=== PATIENT | female | born 2000 | race Caucasian/White ===

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

== ENCOUNTER 2020-06-20 20:16 | Emergency (ER) | payer OTHER, SELFPAY ==
[2020-06-20 20:35] VITALS: BP 118/68; PULSE 95; RESP 20; TEMP 37.2; O2SAT 98; BMI 28.3
[2020-06-20 20:40] LABS: Apearance,Urine Clear (Clear); Bilirubin,Urine Negative (Negative); Blood, Urine Negative (Negative); Color,Urine Yellow (Yellow); Glucose,Urine (UA) Negative (Negative); Ketones,Urine Negative (Negative); PH,Urine 7.5 (5.0-8.5); Protein,Urine Negative (Negative); UTC Leukocyte Esterase,Urine Negative (Negative); UTC Nitrate,Urine Negative (Negative); UTC Pregnancy Test, Urine Positive (Negative); Urobilinogen,Urine 1 EU/dl (0.2)
--- NOTE | 2020-06-20 20:40 | HMH.EDUTC ---
[facility] Disposition Clinical Impression: Dysuria, Positive urine test Disposition: Home, Self-Care Condition on Discharge: Good Instructions: DI for Dysuria -- Adult, Diet Additional Instructions: Drink plenty of fluids. Take tylenol or ibuprofen for pain or fever. Take the medications as directed. Follow up with your regular doctor. GO TO THE ER FOR ANY WORSENING SYMPTOMS Prescriptions: cephALEXin [Keflex 500mg Cap] 500 mg PO Q6H 7 Days #28 cap Transmission Status: Pending to [facility] Referrals: Merlyn Gimenez MD [Primary Care Provider] - Time of Disposition: 20:45 Medical Decision Making - Medical Records Medical records reviewed: No: I reviewed the patient's medical records. - Maged Inquiry Pt receiving controlled substance: No Vital Signs: 06/20/20 20:35 Temperature 99.0 F Temperature Source Oral Pulse Rate [Right Brachial] 95 H Respiratory Rate 20 Blood Pressure [Right Arm] 118/68 Blood Pressure Mean [Right Arm] 84 Blood Pressure Source [Right Arm] Automatic Cuff Blood Pressure Position [Right Arm] Sitting 02 Sat by Pulse Oximetry 98 Oxygen Delivery Method Room Air - Lab Data Lab results reviewed: Yes: I reviewed the patient's lab results. Lab Results 06/20/20 20:39: Urine Color Yellow, Urine Appearance Clear, Urine pH 7.5, Ur Specific [place] 1.020, Urine Protein Negative, Urine Glucose (UA) Negative, Urine Ketones Negative, Urine Blood Negative, Urine Nitrate Negative, Urine Bilirubin Negative, Urine Urobilinogen 1, Ur Leukocyte Esterase Negative, Tst Clinic Positive Orders (Tests/Meds): ORDERS Category Date Time Status Urine Culture Stat Micro 06/20/20 20:15 Ordered [facility] HPI - General Stated complaint: Preg, has a UTI Time Seen by Provider: 06/20/20 20:41 Mode of Arrival: Ambulatory Source of Information: Patient Limitations: No Limitations Description of Symptoms (Recalled from Triage Doc. by RN): PATIENT C/O FREQUENCY AND BURNING WITH URINATION X 1 WEEK. SHE STATES SHE TOOK AN AT HOME TEST 2 DAYS AGO AND IT WAS POSITIVE HEENT Symptoms (Recalled from RN notes): No Resp Symptoms (Recalled from RN notes): No Skin Symptoms (Recalled from RN notes): No MS Symptoms (Recalled from RN notes): No Functional Status (Recalled from RN notes): WNL - History of Present Illness Provider Complaint: She c/o 2 days of dysuria. She thinks that she has a uti. She also states that she thinks that she is . Her period is approx 1 week late. She has had 2 positive urine test at home. She denies any vaginal discharge, vaginal bleeding, abdominal pain or low back pain. - Related Data Previous Rx's Medication Instructions Recorded cephALEXin [Keflex 500mg Cap] 500 mg PO Q6H 7 Days #28 cap 06/20/20 Allergies Allergy/AdvReac Type Severity Reaction Status Date / Time amoxicillin Allergy Mild Verified 12/13/18 15:26 Penicillins Allergy Mild hives Verified 12/13/18 15:26 - Worker's Comp Is this a Worker's Comp case?: No [facility] History - Hepatitis A Screen Drug use history?: No High risk sexual behaviors?: No History of sexually transmitted infection?: No Currently employed?: No Childcare worker?: No Do you have indoor plumbing?: Yes Do you have electricity?: Yes Attestation statement:: This patient has been screened for Hepatitis A risk factors. I have reviewed the patient's past medical history: Yes 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: Denies:: Anxiety, Cancer, Depression, Diabetes Mellitus Type 1, Diabetes Mellitus Type 2, Migraine, MRSA, Seizures Other Surgeries: No: Amputation: No Fractures: No - Social History Smoking Status: Current every day smoker Tobacco Type: cigarettes # Packs/Day (cigarettes): 1 Alcohol Intake: never Substance Use Type: denies use Occupational Status: other - Psychiatric History Pschychiatric History:: Denies:: Anxiety, Depression Family Hx:
[2020-06-20 20:47] VITALS: BP 118/68; PULSE 95; RESP 20; TEMP 37.2; O2SAT 98
== END 2020-06-20 20:50 | disposition home or self-care (01) ==
PROVIDERS: Emergency Provider Nurse Practitioner Family; PCP Family Medicine
DX: R30.0 Dysuria (principal); Z32.01 Encounter for pregnancy test, result positive; F17.210 Nicotine dependence, cigarettes, uncomplicated
CPT/HCPCS: 81003; 81025; 87086; 99201

== ENCOUNTER → 2020-07-08 13:55 | Outpatient (CLI) | payer OTHER, SELFPAY | PROVIDERS: Visit Provider Nurse Practitioner Obstetrics & Gynecology | DX: Z32.00 Encounter for pregnancy test, result unknown (principal) | CPT/HCPCS: 36415; 84702 ==

== ENCOUNTER → 2020-07-09 18:04 | Outpatient (CLI) | payer OTHER, SELFPAY ==
[2020-07-15 10:00] LABS: Neisseria gonorrhoeae, NAA Negative (Negative)
== END ==
PROVIDERS: Visit Provider Nurse Practitioner Obstetrics & Gynecology
DX: Z34.90 Encounter for supervision of normal pregnancy, unspecified, unspecified trimester (principal)
CPT/HCPCS: 87491; 87591

== ENCOUNTER → 2020-07-16 13:52 | Outpatient (CLI) | payer OTHER, SELFPAY ==
--- NOTE | 2020-07-16 13:52 | US_ITS ---
PROCEDURE: US OB TRANSVAGINAL CLINICAL INDICATION: US OB for dates COMPARISON: US OBFEMAT US OB /maternal detail from 07/03/2018 FINDINGS: An intrauterine gestational sac is present with a pole with a crown-rump length of 1.69cm correlating to gestational age of 8weeks 1day. heart tones are present with an FHR of 164bpm. Yolk sac is noted. IMPRESSION: Live IUP at 8 weeks 1 day. Estimated due date by Ultrasound is 02/24/2021 Dictated by: Johnathan Arias MD 07/16/2020 16:53 Johnathan Arias MD in [facility] 07/16/2020 16:53
== END ==
PROVIDERS: PCP Family Medicine; Visit Provider Nurse Practitioner Obstetrics & Gynecology
DX: O26.841 Uterine size-date discrepancy, first trimester (principal)
CPT/HCPCS: 76817

== ENCOUNTER 2020-12-26 21:03 | Emergency (ER) | payer OTHER, SELFPAY ==
[2020-12-26 21:06] VITALS: BP 118/63; PULSE 104; RESP 20; TEMP 37.1; O2SAT 99; BMI 31.7
--- NOTE | 2020-12-26 21:30 | HMH.EDSKAF ---
ED Disposition Clinical Impression: Acute eczema Qualifiers: Weeks of gestation: 32 weeks Qualified Code(s): Z3A.32 - 32 weeks gestation of Disposition: Home, Self-Care Condition on Discharge: Good Instructions: DI for Atopic Dermatitis-Adult Additional Instructions: call pcp and ob in am Referrals: Merlyn Gimenez MD [Primary Care Provider] - - Critical Care Critical Care Time: No Attestation: On 12/26/20, the high probability of a clinically significant, sudden or life threatening deterioration of the following system(s) required my full and direct attention, intervention and personal management. The time I documented below is in addition to time spent performing reported procedures but includes the following listed in this critical care notation. Medical Decision Making - Medical Records Medical records reviewed: Yes: I reviewed the patient's medical records. - Maged Inquiry Pt receiving controlled substance: No Vital Signs: 12/26/20 21:06 Temperature 98.7 F Temperature Source Oral Pulse Rate [Left Radial] 104 H Respiratory Rate 20 Blood Pressure [Right Arm] 118/63 Blood Pressure Mean [Right Arm] 81 Blood Pressure Source [Right Arm] Automatic Cuff Blood Pressure Position [Right Arm] Supine 02 Sat by Pulse Oximetry 99 Oxygen Delivery Method Room Air - Lab Data Lab results reviewed: Yes: I reviewed the patient's lab results. Medical Decision Narrative: possible preg induced eczema and not responsive to steroids /antihistamines - will ask pt to call pcp and ob in am Skin/Abscess/FB HPI - General Chief complaint: Skin/Abscess/Foreign Body Stated complaint: rash 32 wk Preg Time Seen by Provider: 12/26/20 21:30 Mode of Arrival: Ambulatory Source of Information: Patient, Medical Record Limitations: No Limitations Description of Symptoms (Recalled from ER Triage Doc. by RN): Pt reports being seen in [facility] 5 days ago for a rash to bilateral arms and legs and neck. She was given PO prednisone and benadryl. She states she came here today d/t rash not getting any better. - History of Present Illness HPI narrative: rash to bilat forearm over the last week - seen at [facility] and placed on steroids - no relief -no other lesions complaint: rash Onset (ago): day(s) Location: [facility] [place] Severity: moderate Associated symptoms: denies other symptoms Treatments prior to arrival: Benadryl, corticosteroid - Related Data Previous Rx's Medication Instructions Recorded prenat.vits,mikhail,vuz-nuor-xnsso 1 tab PO DAILY #30 tab 07/09/20 Allergies Allergy/AdvReac Type Severity Reaction Status Date / Time amoxicillin Allergy Mild Verified 07/09/20 10:34 Penicillins Allergy Mild hives Verified 07/09/20 10:34 [facility] History - Hepatitis A Screen Drug use history?: No High risk sexual behaviors?: No History of sexually transmitted infection?: No Currently employed?: No Childcare worker?: No Do you have indoor plumbing?: Yes Do you have electricity?: Yes Attestation statement:: This patient has been screened for Hepatitis A risk factors. I have reviewed the patient's past medical history: Yes 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: Denies:: Anxiety, Cancer, Depression, Diabetes Mellitus Type 1, Diabetes Mellitus Type 2, Migraine, MRSA, Seizures Other Surgeries: No: Amputation: No Fractures: No - Social History Smoking Status: Current every day smoker Tobacco Type: cigarettes # Packs/Day (cigarettes): 1 Alcohol Intake: never Alcohol Intake Frequency:: other Substance Use Type: denies use Occupational Status: other - Psychiatric History Pschychiatric History:: Denies:: Anxiety, Depression Family Hx:: No significant family history ROS Obtained: Yes All systems reviewed & no additional complaints - Constitutional Constitutional: Denies fever(s) - Eyes Eyes: Denies change in vision - ENT Ears, Nose, Mouth, and Throat: Denies sore throat - Cardiovas
[2020-12-26 21:56] VITALS: BP 111/65; PULSE 104; RESP 18; TEMP 36.9; O2SAT 98
== END 2020-12-26 21:57 | disposition home or self-care (01) ==
PROVIDERS: Emergency Provider Emergency Medicine; PCP Family Medicine
DX: L30.9 Dermatitis, unspecified (principal); Z3A.32 32 weeks gestation of pregnancy; Z88.0 Allergy status to penicillin; F17.210 Nicotine dependence, cigarettes, uncomplicated
CPT/HCPCS: 99281

== ENCOUNTER 2021-01-07 09:54 | Outpatient (CLI) | payer OTHER, SELFPAY ==
[2021-01-07 10:20] VITALS: BMI 40.3
[2021-01-07 10:43] VITALS: BMI 45.4
[2021-01-07 10:48] LABS: Microscopic, Urine URINE MICROSCOPIC (MICROSCOPIC)
[2021-01-07 10:58] LABS: Appearance,Urine CLOUDY (Clear); Bilirubin,Urine Negative (Negative); Blood, Urine Negative (Negative); Color,Urine YELLOW (Yellow); Glucose,Urine (UA) 1+ (Negative); Ketones,Urine Negative (Negative); Leukocyte Esterase,Urine Negative (Negative); Nitrate,Urine Negative (Negative); Protein,Urine Negative (Negative); Specific Gravity, Urine >= 1.030 (1.005-1.030); Urobilinogen,Urine 0.2 EU/dl (0.2)
[2021-01-07 11:11] LABS: Amphetamine/Metha Screen,Urine Negative ng/ml (<1000); Barbiturates Screen,Urine Negative ng/ml (<200)
[2021-01-07 11:12] LABS: Benzodiazepines Screen,Urine Negative ng/ml (<200)
[2021-01-07 11:13] LABS: Fetal Membrane Rupture (Rapid) Negative (Negative)
[2021-01-07 11:13] LABS: Cannabinoid Screen,Urine Negative ng/ml (<50); Cocaine Screen,Urine Negative ng/ml (<300)
[2021-01-07 11:14] LABS: Methadone Screen,Urine Negative ng/ml (<300)
[2021-01-07 11:15] LABS: Opiate Screen,Urine Negative ng/ml (<300); Phencyclidine Screen,Urine Negative ng/ml (<25)
[2021-01-07 11:18] LABS: RBC,Urine Occasional #/hpf (0-3); WBC,Urine Occasional #/hpf (0-3)
[2021-01-07 11:19] LABS: Bacteria,Urine 1+ /lpf
== END 2021-01-07 14:26 | disposition home or self-care (01) ==
LOC: OBOUT 09:55 → OB 09:56
PROVIDERS: PCP Family Medicine; Visit Provider Nurse Practitioner Obstetrics & Gynecology
DX: O26.893 Other specified pregnancy related conditions, third trimester (principal); Z3A.33 33 weeks gestation of pregnancy; M54.5 Low back pain; R10.2 Pelvic and perineal pain
CPT/HCPCS: 59025; 80305; 81001; 84112; 96365; G0463

== ENCOUNTER 2021-01-26 23:42 | Observation (INO) | payer OTHER, SELFPAY ==
[2021-01-26 21:59] VITALS: BMI 38.1
[2021-01-26 22:03] VITALS: BP 111/57; PULSE 152; RESP 20; TEMP 37.8; O2SAT 99; BMI 38.1
[2021-01-26 22:12] VITALS: BP 111/87; PULSE 152; RESP 20; TEMP 37.8; O2SAT 99
[2021-01-26 22:12] LABS: Microscopic, Urine URINE MICROSCOPIC (MICROSCOPIC)
[2021-01-26 22:14] LABS: Appearance,Urine SL CLOUDY (Clear); Bilirubin,Urine Negative (Negative); Blood, Urine Negative (Negative); Color,Urine YELLOW (Yellow); Glucose,Urine (UA) Negative (Negative); Ketones,Urine Negative (Negative); Leukocyte Esterase,Urine Negative (Negative); Nitrate,Urine Negative (Negative); PH,Urine 7.5 (5.0-8.5); Protein,Urine Negative (Negative); Specific Gravity, Urine 1.015 (1.005-1.030); Urobilinogen,Urine 0.2 EU/dl (0.2)
[2021-01-26 22:23] LABS: Bacteria,Urine 1+ /lpf; WBC,Urine Occasional #/hpf (0-3)
[2021-01-26 22:26] LABS: Amphetamine/Metha Screen,Urine Negative ng/ml (<1000); Barbiturates Screen,Urine Negative ng/ml (<200)
[2021-01-26 22:27] LABS: Benzodiazepines Screen,Urine Negative ng/ml (<200)
[2021-01-26 22:28] LABS: Cannabinoid Screen,Urine Negative ng/ml (<50); Cocaine Screen,Urine Negative ng/ml (<300)
[2021-01-26 22:29] LABS: Methadone Screen,Urine Negative ng/ml (<300)
[2021-01-26 22:30] LABS: Opiate Screen,Urine Negative ng/ml (<300); Phencyclidine Screen,Urine Negative ng/ml (<25)
[2021-01-26 22:51] LABS: Adenovirus,PCR Not Detected (NotDetected); Bordetella Pertussis Not Detected (NotDetected); Chlamydophila Pneumoniae, PCR Not Detected (NotDetected); Coronavirus 19, PCR Not Detected (NotDetected); Coronavirus 229E Not Detected (NotDetected); Coronavirus OC43 Not Detected (NotDetected); Coronovirus HKU1,PCR Not Detected (NotDetected); Human Metapneumovirus Not Detected (NotDetected); Influenza A, PCR Not Detected (NotDetected); Influenza AH1, 2009 Not Detected (NotDetected); Influenza AH1, PCR Not Detected (NotDetected); Influenza AH3,PCR Not Detected (NotDetected); Influenza B, PCR Not Detected (NotDetected); Mycoplasma Pneumoniae, PCR Not Detected (NotDetected); Parainfluenza 1, PCR Not Detected (NotDetected); Parainfluenza 2, PCR Not Detected (NotDetected); Parainfluenza 3, PCR Not Detected (NotDetected); Parainfluenza 4, PCR Not Detected (NotDetected); Respiratory Syncytial Virus Not Detected (NotDetected); Rhinovirus/Enterovirus Not Detected (NotDetected)
[2021-01-26 22:55] LABS: Basophils % 0.2 % (0.1-2.0); Eosinophils % 0.4 % (0.1-12.0); Hematocrit 33.8 % (37.0-47.0); Hemoglobin 11.8 g/dL (12.2-16.2); Lymphocytes # 0.7 K/mm3 (0.7-4.5); Lymphocytes % 6.7 % (10-50); Mean Corpuscular HGB Conc 34.8 g/dL (31.8-35.4); Mean Corpuscular Hemoglobin 31.2 pg (27.0-31.2); Mean Corpuscular Volume 89.7 fl (81-99); Mean Platelet Volume 8.5 fl (7.4-10.4); Monocytes # 0.6 K/mm3 (0.1-1.0); Monocytes % 5.7 % (1.7-9.3); Neutrophils # 8.9 K/mm3 (1.8-7.8); Neutrophils % 87.1 % (37.0-80.0); Platelet Count 231 K/mm3 (142-424); Red Blood Count 3.77 M/mm3 (4.20-5.40); Red Cell Distribution Width 12.8 % (11.5-17.5); White Blood Count 10.2 K/mm3 (4.8-10.8)
[2021-01-26 23:00] LABS: Chloride 105 mmol/L (98-107); MANUAL DIFFERENTIAL MANUAL DIFFERENTIAL (MANUAL DIFF); Sodium 134 mmol/L (136-145)
[2021-01-26 23:01] LABS: Potassium 3.9 mmoL/L (3.5-5.1)
[2021-01-26 23:03] LABS: Alanine Aminotransferase 13 U/L (12-78); Alkaline Phosphatase 141 U/L (38-126); Anion Gap 11.9 mEq/L (5-15); Aspartate Amino Transferase 27 U/L (14-36); Bilirubin,Total 0.6 mg/dl (0.2-1.3); Blood Urea Nitrogen 3 mg/dl (7-17); Carbon Dioxide 21 mmol/L (22.0-30.0); Creatinine Clearance Estimated 292 mL/min (50-200); Estimated Glomerular Filt Rate 156 ml/min (>60); GFR (African American) 188 ML/MIN (>60)
[2021-01-26 23:04] LABS: Albumin Level 3.7 g/dl (3.5-5.0); Albumin/Globulin Ratio 1.5 (1.1-1.8); Calcium 9.2 mg/dl (8.4-10.2); Globulin 2.4 g/dL (1.3-3.2); Glucose 101 mg/dl (74-100); Total Protein,Serum 6.1 g/dl (6.3-8.2)
[2021-01-26 23:08] VITALS: BP 114/61; PULSE 139; RESP 20; TEMP 37.3; O2SAT 99
[2021-01-26 23:11] LABS: Lymphocytes % 10 % (10-50); Monocytes % 6 % (2-9); Neutrophils % 84 % (42-76); Platelet Estimate Normal; RBC Morphology Normal; Total Cells Counted 100
[2021-01-26 23:15] LABS: Strep Scrn Group A (Rapid) Negative (Negative)
[2021-01-26 23:50] VITALS: BP 119/57; PULSE 131; RESP 18; TEMP 37.8; O2SAT 98
[2021-01-27 00:35] LABS: Coronavirus NL63 Detected (NotDetected)
[2021-01-27 04:46] VITALS: BP 110/63; PULSE 110; RESP 18; TEMP 37.3; O2SAT 99
--- NOTE | 2021-01-27 08:21 | HMH.HPDC ---
General - General Admission date:: 01/26/21 Discharge date: 01/27/21 *Admission Date: 01/26/21 *Chief complaint: Body aches, low-grade fever feeling unwell *History of present illness: She is a 20-year-old 1 para 0 at 36 weeks gestational age. She was feeling unwell. She had decreased movement. When she came into labor and delivery she had tachycardia and a low-grade temperature of 100. She had been exposed to somebody who had Covid. Since she was feeling unwell we elected to admit her for observation. We tested her for Covid as well. [facility] History I have reviewed the patient's past medical history: Yes 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: Denies:: Anxiety, Cancer, Depression, Diabetes Mellitus Type 1, Diabetes Mellitus Type 2, Migraine, MRSA, Seizures *Have you ever received a pneumonia vaccine?: No *Have you received a flu vaccine this season?: No Other Surgeries: No: Amputation: No Fractures: No - *Social History Last grade of school completed: 9th or 10th Smoking Status: Current every day smoker Tobacco Type: e-cigarettes # Packs/Day (cigarettes): 1 Alcohol Intake: never Alcohol Intake Frequency:: other Substance Use Type: denies use *Occupational Status:: unemployed Housing: apartment Household Members: children, none *Travel in the last 8 weeks: None - Psychiatric History Pschychiatric History:: Denies:: Anxiety, Depression Family Hx:: Diabetes, Hypertension, Stroke, Substance abuse Para: 1 Review of Systems - Review of Systems Review of systems:: pertinent systems reviewed and negative unless documented below Exam Vital signs and Labs for Last 24 Hours: Temp Pulse Resp BP Pulse Ox 99.1 F 110 H 18 110/63 99 01/27/21 04:46 01/27/21 04:46 01/27/21 04:46 01/27/21 04:46 01/27/21 04:46 Laboratory Results - last 24 hr 01/26/21 22:00: Urine Color Yellow, Urine Appearance Sl cloudy, Urine pH 7.5, Ur Specific [place] 1.015, Urine Protein Negative, Urine Glucose (UA) Negative, Urine Ketones Negative, Urine Blood Negative, Urine Nitrate Negative, Urine Bilirubin Negative, Urine Urobilinogen 0.2, Ur Leukocyte Esterase Negative, Urine WBC Occasional, Ur Squamous Epith Cells 3-5, Urine Bacteria 1+ 01/26/21 22:00: Urine Opiates Screen Negative, Urine Methadone Screen Negative, Ur Barbituates Screen Negative, Ur Phencyclidine Scrn Negative, Ur Amphetamines Screen Negative, U Benzodiazepines Scrn Negative, Urine Cocaine Screen Negative, U Marijuana (THC) Screen Negative 01/26/21 22:22: WBC 10.2, RBC 3.77 L, Hgb 11.8 L, Hct 33.8 L, MCV 89.7, MCH 31.2, MCHC 34.8, RDW 12.8, Plt Count 231, MPV 8.5, Neut % (Auto) 87.1 H, Lymph % (Auto) 6.7 L, [place] % (Auto) 5.7, Eos % (Auto) 0.4, Baso % (Auto) 0.2, Neut # (Auto) 8.9 H, Lymph # (Auto) 0.7, [place] # (Auto) 0.6, Eos # (Auto) 0.0, Baso # (Auto) 0.0, Total Counted 100, Neutrophils % (Manual) 84 H, Lymphocytes % (Manual) 10, Monocytes % (Manual) 6, Platelet Estimate Normal, RBC Morphology Normal 01/26/21 22:22: Sodium 134 L, Potassium 3.9, Chloride 105, Carbon Dioxide 21 L, Anion Gap 11.9, BUN 3 L, Creatinine 0.50 L, Estimated Creat Clear 292, Estimated GFR 156, Est GFR ( Amer) 188, Glucose 101 H, Calcium 9.2, Total Bilirubin 0.6, AST 27, ALT 13, Alkaline Phosphatase 141 H, Total Protein 6.1 L, Albumin 3.7, Globulin 2.4, Albumin/Globulin Ratio 1.5 01/26/21 22:40: Chlamy pneumoniae PCR Not detected, Adenovirus (PCR) Not detected, B. pertussis DNA (PCR) Not detected, Coronavirus OC43 (PCR) Not detected, Coronavirus HKU1 (PCR) Not detected, Coronavirus 229E (PCR) Not detected, SARS-CoV-2 (PCR) Not detected, Coronavirus NL63 (PCR) Detected A, Human Metapneumovir PCR Not detected, Influenza A (H1) PCR Not detected, Influ A (H1N1/09) PCR Not detected, Influenza A (H3) PCR Not detected, Influenza Type A (PCR) Not detected, Influenza Type B (PCR) Not detected, M. pneumoniae (PCR) Not detected, Parainfluenza 1 (PCR) Not detected, Parainfluenza 2 (PCR) Not detected, Parainfluenz
== END 2021-01-27 09:30 | disposition home or self-care (01) ==
LOC: OBOUT 23:45 → OB 23:45
PROVIDERS: Admitting Provider Nurse Practitioner Obstetrics & Gynecology; PCP Nurse Practitioner Obstetrics & Gynecology; Visit Provider Nurse Practitioner Obstetrics & Gynecology
DX: O36.8130 Decreased fetal movements, third trimester, not applicable or unspecified (principal); Z3A.36 36 weeks gestation of pregnancy; O98.513 Other viral diseases complicating pregnancy, third trimester; B34.2 Coronavirus infection, unspecified
CPT/HCPCS: 59025; 80053; 80305; 81001; 85007; 85025; 87430; 87581; 87633; 87798; 94761; 96365; G0283; G0378

== ENCOUNTER → 2021-01-29 15:11 | Outpatient (CLI) | payer OTHER, SELFPAY | PROVIDERS: Visit Provider Nurse Practitioner Obstetrics & Gynecology | DX: Z34.90 Encounter for supervision of normal pregnancy, unspecified, unspecified trimester (principal) | CPT/HCPCS: 86403 ==

== ENCOUNTER 2021-02-06 01:18 | Outpatient (CLI) | payer OTHER, SELFPAY ==
[2021-02-06 01:23] VITALS: BMI 38.6
[2021-02-06 01:46] LABS: Microscopic, Urine URINE MICROSCOPIC (MICROSCOPIC)
[2021-02-06 01:49] LABS: Appearance,Urine CLEAR (Clear); Bilirubin,Urine Negative (Negative); Blood, Urine Negative (Negative); Color,Urine YELLOW (Yellow); Glucose,Urine (UA) Negative (Negative); Ketones,Urine TRACE (Negative); Leukocyte Esterase,Urine 1+ (Negative); Nitrate,Urine Negative (Negative); PH,Urine 6.5 (5.0-8.5); Protein,Urine Negative (Negative); Specific Gravity, Urine 1.025 (1.005-1.030); Urobilinogen,Urine 0.2 EU/dl (0.2)
[2021-02-06 01:53] VITALS: BP 110/77; PULSE 94; RESP 18; TEMP 36.7; O2SAT 96; BMI 38.6
[2021-02-06 02:01] LABS: Amphetamine/Metha Screen,Urine Negative ng/ml (<1000)
[2021-02-06 02:02] LABS: Barbiturates Screen,Urine Negative ng/ml (<200); Benzodiazepines Screen,Urine Negative ng/ml (<200)
[2021-02-06 02:04] LABS: Cannabinoid Screen,Urine Negative ng/ml (<50)
[2021-02-06 02:05] LABS: Cocaine Screen,Urine Negative ng/ml (<300)
[2021-02-06 02:06] LABS: Bacteria,Urine 3+ /lpf; Methadone Screen,Urine Negative ng/ml (<300); Mucus,Urine 1+ /lpf; Opiate Screen,Urine Negative ng/ml (<300)
[2021-02-06 02:07] LABS: Phencyclidine Screen,Urine Negative ng/ml (<25)
[2021-02-06 02:28] LABS: Fetal Membrane Rupture (Rapid) Negative (Negative)
== END 2021-02-06 02:42 | disposition home or self-care (01) ==
LOC: OBOUT 01:21 → OB 01:21
PROVIDERS: PCP Family Medicine; Referring Provider Obstetrics & Gynecology; Visit Provider Nurse Practitioner Obstetrics & Gynecology
DX: O47.03 False labor before 37 completed weeks of gestation, third trimester (principal); Z3A.37 37 weeks gestation of pregnancy
CPT/HCPCS: 59025; 80305; 81001; 84112; 87086; G0463

== ENCOUNTER 2021-02-14 14:03 | Outpatient (CLI) | payer OTHER, SELFPAY ==
[2021-02-14 14:15] VITALS: BMI 34.5
[2021-02-14 14:39] VITALS: BP 123/58; PULSE 96; RESP 18; TEMP 36.5; O2SAT 100; BMI 34.5
[2021-02-14 14:45] LABS: Appearance,Urine SL CLOUDY (Clear); Bilirubin,Urine Negative (Negative); Blood, Urine Negative (Negative); Color,Urine YELLOW (Yellow); Glucose,Urine (UA) Negative (Negative); Ketones,Urine Negative (Negative); Leukocyte Esterase,Urine 2+ (Negative); Microscopic, Urine URINE MICROSCOPIC (MICROSCOPIC); Nitrate,Urine Negative (Negative); PH,Urine 5.5 (5.0-8.5); Protein,Urine Negative (Negative); Specific Gravity, Urine >= 1.030 (1.005-1.030); Urobilinogen,Urine 0.2 EU/dl (0.2)
[2021-02-14 14:49] LABS: Fetal Membrane Rupture (Rapid) Negative (Negative)
[2021-02-14 14:52] LABS: Bacteria,Urine 2+ /lpf
[2021-02-14 14:58] LABS: Amphetamine/Metha Screen,Urine Negative ng/ml (<1000)
[2021-02-14 14:59] LABS: Barbiturates Screen,Urine Negative ng/ml (<200); Benzodiazepines Screen,Urine Negative ng/ml (<200)
[2021-02-14 15:00] LABS: Cannabinoid Screen,Urine Negative ng/ml (<50); Cocaine Screen,Urine Negative ng/ml (<300)
[2021-02-14 15:01] LABS: Methadone Screen,Urine Negative ng/ml (<300)
[2021-02-14 15:02] LABS: Opiate Screen,Urine Negative ng/ml (<300); Phencyclidine Screen,Urine Negative ng/ml (<25)
== END 2021-02-14 15:24 | disposition home or self-care (01) ==
LOC: OBOUT 14:04 → OB 14:05
PROVIDERS: PCP Family Medicine; Visit Provider Obstetrics & Gynecology
DX: O26.893 Other specified pregnancy related conditions, third trimester (principal); Z3A.39 39 weeks gestation of pregnancy
CPT/HCPCS: 59025; 80305; 81001; 84112; 87086; G0463

== ENCOUNTER 2021-02-16 07:11 | Outpatient (CLI) | payer OTHER, SELFPAY ==
[2021-02-16 07:50] VITALS: BMI 34.4
[2021-02-16 07:58] VITALS: BP 114/74; PULSE 92; RESP 18; TEMP 36.6; O2SAT 97; BMI 34.4
[2021-02-16 08:16] LABS: Microscopic, Urine URINE MICROSCOPIC (MICROSCOPIC)
[2021-02-16 08:43] LABS: Appearance,Urine CLOUDY (Clear); Bilirubin,Urine Negative (Negative); Blood, Urine Negative (Negative); Color,Urine YELLOW (Yellow); Glucose,Urine (UA) Negative (Negative); Ketones,Urine Negative (Negative); Leukocyte Esterase,Urine 3+ (Negative); Nitrate,Urine Negative (Negative); PH,Urine 6.5 (5.0-8.5); Protein,Urine Negative (Negative); Specific Gravity, Urine 1.015 (1.005-1.030); Urobilinogen,Urine 0.2 EU/dl (0.2)
[2021-02-16 08:59] LABS: Benzodiazepines Screen,Urine Negative ng/ml (<200)
[2021-02-16 09:00] LABS: Amphetamine/Metha Screen,Urine Negative ng/ml (<1000)
[2021-02-16 09:01] LABS: Barbiturates Screen,Urine Negative ng/ml (<200); Methadone Screen,Urine Negative ng/ml (<300)
[2021-02-16 09:02] LABS: Cannabinoid Screen,Urine Negative ng/ml (<50); Cocaine Screen,Urine Negative ng/ml (<300)
[2021-02-16 09:03] LABS: Phencyclidine Screen,Urine Negative ng/ml (<25)
[2021-02-16 09:04] LABS: Opiate Screen,Urine Negative ng/ml (<300)
--- NOTE | 2021-02-16 09:25 | P.PN_ITS ---
Internal Medicine - PN: Subj *Date: 02/16/21 *Time: 09:25 Interval history: She arrived at 38 weeks and 6 days. She is having irregular contractions. I suspect that she is in the breech presentation. Exam Vital signs and Labs for Last 24 Hours: Temp Pulse Resp BP Pulse Ox 97.8 F 92 H 18 114/74 97 02/16/21 07:58 02/16/21 07:58 02/16/21 07:58 02/16/21 07:58 02/16/21 07:58 Laboratory Results - last 24 hr 02/16/21 07:15: Urine Color Yellow, Urine Appearance Cloudy, Urine pH 6.5, Ur Specific [place] 1.015, Urine Protein Negative, Urine Glucose (UA) Negative, Urine Ketones Negative, Urine Blood Negative, Urine Nitrate Negative, Urine Bilirubin Negative, Urine Urobilinogen 0.2, Ur Leukocyte Esterase 3+ A 02/16/21 07:15: Urine Opiates Screen Negative, Urine Methadone Screen Negative, Ur Barbituates Screen Negative, Ur Phencyclidine Scrn Negative, Ur Amphetamines Screen Negative, U Benzodiazepines Scrn Negative, Urine Cocaine Screen Negative, U Marijuana (THC) Screen Negative I & O for Last 24 hours: Intake & Output 02/13/21 02/14/21 02/15/21 02/16/21 11:59 11:59 11:59 11:59 Weight 233 lb - Constitutional no acute distress - *Routine HEENT Exam Head: Present: normocephalic Eye: Present: EOMI, PERRL ENT: Present: mucous membranes moist - *Routine Abdominal Exam Present: soft, normoactive bowel sounds. Absent: tenderness Assessment and Plan (1) False labor after 37 completed weeks of gestation Status: Acute Category: Medical Code(s): O47.1 - False labor at or after 37 completed weeks of gestation (2) Breech presentation Status: Acute Category: Medical Code(s): O32.1XX0 - Maternal care for breech presentation, not applicable or unspecified - Assessment and plan all Dx Assessment and Plan for all problems:: She has an appoint with me later on this afternoon. We will do an ultrasound and confirmed the breech presentation. We will then schedule her for a C- section if she continues to be breech. Cervix is 2 cm and the presenting part is unengaged.
[2021-02-16 09:51] LABS: Bacteria,Urine 1+ /lpf
[2021-02-16 09:52] LABS: Amorphous Sediment,Urine 1+ /lpf
== END 2021-02-16 09:20 | disposition home or self-care (01) ==
LOC: OBOUT 07:12 → OB 07:13
PROVIDERS: PCP Family Medicine; Visit Provider Nurse Practitioner Obstetrics & Gynecology
DX: Z34.90 Encounter for supervision of normal pregnancy, unspecified, unspecified trimester (principal)
CPT/HCPCS: 59025; 80305; 81001; 87086

== ENCOUNTER → 2021-02-17 09:43 | Outpatient (CLI) | payer OTHER, SELFPAY | PROVIDERS: PCP Family Medicine; Visit Provider Family Medicine | DX: Z20.822 Contact with and (suspected) exposure to COVID-19 (principal) | CPT/HCPCS: U0003 ==

== ENCOUNTER 2021-02-18 04:54 | Inpatient (IN) | payer OTHER, SELFPAY ==
[2021-02-18 05:15] VITALS: BMI 34.4
[2021-02-18 05:45] VITALS: BP 116/59; PULSE 80; RESP 20; TEMP 36.8; O2SAT 99; BMI 34.2
[2021-02-18 06:21] LABS: Microscopic, Urine URINE MICROSCOPIC (MICROSCOPIC)
[2021-02-18 06:22] LABS: Appearance,Urine CLEAR (Clear); Bilirubin,Urine Negative (Negative); Blood, Urine Negative (Negative); Color,Urine YELLOW (Yellow); Glucose,Urine (UA) Negative (Negative); Ketones,Urine Negative (Negative); Leukocyte Esterase,Urine 2+ (Negative); Nitrate,Urine Negative (Negative); PH,Urine 6.5 (5.0-8.5); Protein,Urine Negative (Negative); Urobilinogen,Urine 0.2 EU/dl (0.2)
[2021-02-18 06:25] LABS: Basophils # 0.1 K/mm3 (0-0.2); Basophils % 0.4 % (0.1-2.0); Eosinophils # 0.1 K/mm3 (0.0-0.4); Eosinophils % 0.5 % (0.1-12.0); Hematocrit 33.9 % (37.0-47.0); Hemoglobin 11.5 g/dL (12.2-16.2); Lymphocytes # 3.3 K/mm3 (0.7-4.5); Lymphocytes % 32.3 % (10-50); Mean Corpuscular HGB Conc 33.9 g/dL (31.8-35.4); Mean Corpuscular Hemoglobin 29.9 pg (27.0-31.2); Mean Platelet Volume 8.5 fl (7.4-10.4); Monocytes # 0.5 K/mm3 (0.1-1.0); Monocytes % 4.9 % (1.7-9.3); Neutrophils # 6.4 K/mm3 (1.8-7.8); Neutrophils % 61.8 % (37.0-80.0); Platelet Count 256 K/mm3 (142-424); Red Blood Count 3.85 M/mm3 (4.20-5.40); Red Cell Distribution Width 13.5 % (11.5-17.5); White Blood Count 10.3 K/mm3 (4.8-10.8)
[2021-02-18 06:36] LABS: Bacteria,Urine Trace /lpf; RBC,Urine Occasional #/hpf (0-3)
[2021-02-18 08:27] LABS: Barbiturates Screen,Urine Negative ng/ml (<200)
[2021-02-18 08:28] LABS: Amphetamine/Metha Screen,Urine Negative ng/ml (<1000); Benzodiazepines Screen,Urine Negative ng/ml (<200)
[2021-02-18 08:29] LABS: Cannabinoid Screen,Urine Negative ng/ml (<50)
[2021-02-18 08:30] LABS: Cocaine Screen,Urine Negative ng/ml (<300); Methadone Screen,Urine Negative ng/ml (<300)
[2021-02-18 08:31] LABS: Opiate Screen,Urine Negative ng/ml (<300); Phencyclidine Screen,Urine Negative ng/ml (<25)
--- NOTE | 2021-02-18 09:21 | HMH.LABNOT ---
Labor Note - Subjective: Date: 02/18/21 Time: 09:21 regular contraction - Objective: NST:: Reactive Contractions:: every 2-3 minutes Cervical Dilation:: 3 Effacement:: 90% Station: -2 Membranes: artificially ruptured - Fetus: Monitoring?: Yes monitoring type:: Internal Comment:: I inserted an IUPC as well as scalp clip. - Assessment: Labor progressing?: Yes Cephalopelvic disproportion?: No Patient Problems: All Active Problems Acute eczema (Acute) Decreased movement (Acute) Low grade fever (Acute) Coronavirus infection (Acute) False labor after 37 completed weeks of gestation (Acute) Breech presentation (Acute) (Acute) Viral upper respiratory illness (Acute) Dysuria (Acute) Left flank pain (Acute) UTI (urinary tract infection) (Acute) - Plan: Anesthesia for epidural?: Yes Continue to labor down?: Yes Plan for ?: No Continue to monitor?: Yes Start pushing?: No
--- NOTE | 2021-02-18 09:24 | HMH.OBAPHP ---
OB - H&P: HPI Antepartum - History of Present Illness Chief complaint: Term , pressure, oligohydramnios History of present illness: She is a 20-year-old 2 para 1 at 39 weeks gestational age. She was seen in my office and had an ultrasound that showed mild oligohydramnios. As result of that we elected to induce her labor at term. - History of Present Criteria for establishing EDC:: LMP confirmed by 1st trimester US care: good care Ultrasounds: normal 1st trimester US, normal mid trimester US Obstetrical complications: autoimmune disease, other (Oligohydramnios) - Labs Blood type: O (-) negative Rubella: immune RPR/VDRL: nonreactive GBS status: negative HBsAG: negative [facility] History I have reviewed the patient's past medical history: Yes 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: Denies:: Anxiety, Cancer, Depression, Diabetes Mellitus Type 1, Diabetes Mellitus Type 2, Migraine, MRSA, Seizures *Have you ever received a pneumonia vaccine?: No *Have you received a flu vaccine this season?: No Other Surgeries: No: Amputation: No Fractures: No - *Social History Smoking Status: Current every day smoker Tobacco Type: e-cigarettes # Packs/Day (cigarettes): 1 Alcohol Intake: never Alcohol Intake Frequency:: other Substance Use Type: denies use *Occupational Status:: unemployed Housing: apartment Household Members: children, none *Travel in the last 8 weeks: Inside the [place] - Psychiatric History Pschychiatric History:: Denies:: Anxiety, Depression Family Hx:: Diabetes, Hypertension, Stroke, Substance abuse Para: 1 Review of Systems - Review of Systems Review of systems:: pertinent systems reviewed and negative unless documented below Meds Home Medications Medication Instructions Recorded Confirmed Type Vit Calc,Iron,Folic [Kpn] 1 tab PO DAILY 01/27/21 02/18/21 History Allergies Allergy/AdvReac Type Severity Reaction Status Date / Time amoxicillin Allergy Mild Verified 02/16/21 15:47 Penicillins Allergy Mild hives Verified 02/16/21 15:47 OB - H&P: Exam - Physical Exam Vital signs: Temp Pulse Resp BP Pulse Ox 98.2 F 80 20 116/59 L 99 02/18/21 05:45 02/18/21 05:45 02/18/21 05:45 02/18/21 05:45 02/18/21 05:45 - Constitutional no acute distress - Routine HEENT Exam Head: Present: normocephalic Eye: Present: EOMI, PERRL ENT: Present: mucous membranes moist - Routine Neck Exam Present: supple, full ROM - Routine Respiratory Exam Absent: accessory muscle use (good air entry bilaterally), respiratory distress, wheezes, crackles - Routine Cardiovascular Exam Present: RRR. Absent: murmur - Routine Abdominal Exam Present: soft, normoactive bowel sounds. Absent: tenderness, distended, guarding - Routine Rectal Exam Patient deferred: visual exam, digital exam - Routine Exam Patient deferred: external exam, groin exam, perineal exam - Routine Extremities Exam Present: full ROM. Absent: cyanosis, edema - Routine Skin Exam Present: intact. Absent: cyanosis - Routine Neurological Exam Present: alert, oriented X3 - Routine Psychiatric Exam Present: normal affect OB - Results - Labs Labs: Short CBC 02/18/21 Range/Units 05:55 WBC 10.3 (4.8-10.8) K/mm3 Hgb 11.5 L (12.2-16.2) g/dL Hct 33.9 L (37.0-47.0) % Plt Count 256 (142-424) K/mm3 Urine 02/18/21 Range/Units 05:55 Urine Color Yellow (Yellow) Urine Appearance Clear (Clear) Urine pH 6.5 (5.0-8.5) Ur Specific [place] 1.020 (1.005-1.030) Urine Protein Negative (Negative) Urine Glucose (UA) Negative (Negative) OB - A/P Antepartum (1) Oligohydramnios Status: Acute (2) Normal delivery Status: Acute - Additional Plan Planning to breastfeed?: No Plan: induction Additional Information:: She is here for induction of labor. She has oligohydramnios. Ultrasound confirmed cephalic prese
--- NOTE | 2021-02-18 11:53 | HMH.LABNOT ---
Labor Note - Subjective: Date: 02/18/21 Time: 11:53 regular contraction - Objective: NST:: Reactive Contractions:: every 2-3 minutes Cervical Dilation:: 5 Effacement:: 100% Station: -1 Membranes: artificially ruptured - Fetus: Monitoring?: Yes monitoring type:: Internal - Assessment: Labor progressing?: Yes Cephalopelvic disproportion?: No Patient Problems: All Active Problems Acute eczema (Acute) Decreased movement (Acute) Low grade fever (Acute) Coronavirus infection (Acute) False labor after 37 completed weeks of gestation (Acute) Breech presentation (Acute) Oligohydramnios (Acute) Normal delivery (Acute) (Acute) Viral upper respiratory illness (Acute) Dysuria (Acute) Left flank pain (Acute) UTI (urinary tract infection) (Acute) - Plan: Anesthesia for epidural?: Yes Continue to labor down?: Yes Plan for ?: No Continue to monitor?: Yes Start pushing?: No
--- NOTE | 2021-02-18 12:17 | P.PN_ITS ---
[facility] Anesthesia Checklist - Patient Identification Patient Identification: Arm Band - Structural Data Admitted From: Inpatient Planned Operative Procedure/s: labor epidural Consent for Planned Operative Procedure(s) Verified: Yes Verified Documents: Surgical Consent, History and Physical - NPO Status Verified Time NPO: 00:00 - Additional verifications Anesthesia Reactions: No - Airway Assessment C-Spine Mobility Assessed: Yes TMJ Mobility Assessed: Yes Dentition: Good Dentition - Neurological Assessment Level of Consciousness: Awake, Alert - Anesthesia Plan Anesthesia Risk discussed: Yes Anesthesia Plan: Verified ASA Class: II Anesthesia Type: Epidural [facility] History I have reviewed the patient's past medical history: Yes 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: Denies:: Anxiety, Cancer, Depression, Diabetes Mellitus Type 1, Diabetes Me llitus Type 2, Migraine, MRSA, Seizures *Have you ever received a pneumonia vaccine?: No *Have you received a flu vaccine this season?: No Anesthesia experience/problems:: nac Other Surgeries: No: Amputation: No Fractures: No - *Social History Smoking Status: Current every day smoker Tobacco Type: e-cigarettes # Packs/Day (cigarettes): 1 Alcohol Intake: never Alcohol Intake Frequency:: other Substance Use Type: denies use *Occupational Status:: unemployed Housing: apartment Household Members: children, none *Travel in the last 8 weeks: Inside the [place] - Psychiatric History Pschychiatric History:: Denies:: Anxiety, Depression Family Hx:: Diabetes, Hypertension, Stroke, Substance abuse Para: 1
--- NOTE | 2021-02-18 13:53 | HMH.LABNOT ---
Labor Note - Subjective: Date: 02/18/21 Time: 13:53 regular contraction - Objective: Contractions:: every 4-5 minutes Cervical Dilation:: 8-9 Effacement:: 100% Station: 0 Membranes: artificially ruptured - Fetus: Monitoring?: Yes monitoring type:: Internal - Assessment: Labor progressing?: Yes Cephalopelvic disproportion?: No Patient Problems: All Active Problems Acute eczema (Acute) Decreased movement (Acute) Low grade fever (Acute) Coronavirus infection (Acute) False labor after 37 completed weeks of gestation (Acute) Breech presentation (Acute) Oligohydramnios (Acute) Normal delivery (Acute) (Acute) Viral upper respiratory illness (Acute) Dysuria (Acute) Left flank pain (Acute) UTI (urinary tract infection) (Acute) - Plan: Anesthesia for epidural?: Yes Continue to labor down?: Yes Plan for ?: No Continue to monitor?: Yes Start pushing?: No
--- NOTE | 2021-02-18 14:24 | HMH.HP ---
[facility] History 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: Denies:: Anxiety, Cancer, Depression, Diabetes Mellitus Type 1, Diabetes Mellitus Type 2, Migraine, MRSA, Seizures *Have you ever received a pneumonia vaccine?: No *Have you received a flu vaccine this season?: No Anesthesia experience/problems:: nac Other Surgeries: No: Amputation: No Fractures: No - *Social History Smoking Status: Current every day smoker Tobacco Type: e-cigarettes # Packs/Day (cigarettes): 1 Alcohol Intake: never Alcohol Intake Frequency:: other Substance Use Type: denies use *Occupational Status:: unemployed Housing: apartment Household Members: children, none *Travel in the last 8 weeks: [place] the [place] - Psychiatric History Pschychiatric History:: Denies:: Anxiety, Depression Family Hx:: Diabetes, Hypertension, Stroke, Substance abuse Para: 1 Meds Home Medications Medication Instructions Recorded Confirmed Type Vit Calc,Iron,Folic [Kpn] 1 tab PO DAILY 01/27/21 02/18/21 History Allergies Allergy/AdvReac Type Severity Reaction Status Date / Time amoxicillin Allergy Mild Verified 02/16/21 15:47 Penicillins Allergy Mild hives Verified 02/16/21 15:47 Exam Vital signs and Labs for Last 24 Hours: Temp Pulse Resp BP Pulse Ox 98.2 F 80 20 116/59 L 99 02/18/21 05:45 02/18/21 05:45 02/18/21 05:45 02/18/21 05:45 02/18/21 05:45 Laboratory Results - last 24 hr 02/18/21 05:55: WBC 10.3, RBC 3.85 L, Hgb 11.5 L, Hct 33.9 L, MCV 88.0, MCH 29.9, MCHC 33.9, RDW 13.5, Plt Count 256, MPV 8.5, Neut % (Auto) 61.8, Lymph % (Auto) 32.3, [place] % (Auto) 4.9, Eos % (Auto) 0.5, Baso % (Auto) 0.4, Neut # (Auto) 6.4, Lymph # (Auto) 3.3, [place] # (Auto) 0.5, Eos # (Auto) 0.1, Baso # (Auto) 0.1 02/18/21 05:55: Urine Color Yellow, Urine Appearance Clear, Urine pH 6.5, Ur Specific [place] 1.020, Urine Protein Negative, Urine Glucose (UA) Negative, Urine Ketones Negative, Urine Blood Negative, Urine Nitrate Negative, Urine Bilirubin Negative, Urine Urobilinogen 0.2, Ur Leukocyte Esterase 2+ A, Urine RBC Occasional, Urine WBC 5-10, Ur Squamous Epith Cells 3-5, Urine Bacteria Trace 02/18/21 05:55: Urine Opiates Screen Negative, Urine Methadone Screen Negative, Ur Barbituates Screen Negative, Ur Phencyclidine Scrn Negative, Ur Amphetamines Screen Negative, U Benzodiazepines Scrn Negative, Urine Cocaine Screen Negative, U Marijuana (THC) Screen Negative 02/18/21 05:55: Blood Type O Negative, Antibody Screen Negative I & O for Last 24 hours: Intake & Output 02/16/21 02/17/21 02/18/21 02/19/21 11:59 11:59 11:59 11:59 Weight 232 lb - Constitutional no acute distress - *Routine HEENT Exam Head: Present: normocephalic Eye: Present: EOMI, PERRL ENT: Present: mucous membranes moist - *Routine Neck Exam Present: supple, full ROM - *Routine Respiratory Exam Absent: accessory muscle use (good air entry bilaterally), wheezes, crackles - *Routine Cardiovascular Exam Present: RRR. Absent: murmur - *Routine Abdominal Exam Present: soft, normoactive bowel sounds. Absent: tenderness, rebound, guarding, mass - *Routine Extremities Exam Present: full ROM. Absent: cyanosis, edema, calf tenderness - *Routine Skin Exam Present: intact (good color) - *Routine Neurological Exam Present: alert, oriented X3 - Routine Psychiatric Exam Present: normal affect - Detailed Rectal Exam Patient deferred: visual exam, digital exam - Detailed Exam Patient deferred: external exam, groin exam, perineal exam Assessment and Plan (1) Oligohydramnios Status: Acute Category: Medical Code(s): O41.00X0 - Oligohydramnios, unspecified trimester, not applicable or unspecified (2) Normal delivery Status: Acute Category: Medical Code(s): O80 - Encounter for full-term uncomplicated delivery
--- NOTE | 2021-02-18 14:54 | HMH.HP ---
*Admission Date: 02/18/21 [facility] History 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: Denies:: Anxiety, Cancer, Depression, Diabetes Mellitus Type 1, Diabetes Mellitus Type 2, Migraine, MRSA, Seizures *Have you ever received a pneumonia vaccine?: No *Have you received a flu vaccine this season?: No Anesthesia experience/problems:: nac Other Surgeries: No: Amputation: No Fractures: No - *Social History Smoking Status: Current every day smoker Tobacco Type: e-cigarettes # Packs/Day (cigarettes): 1 Alcohol Intake: never Alcohol Intake Frequency:: other Substance Use Type: denies use *Occupational Status:: unemployed Housing: apartment Household Members: children, none *Travel in the last 8 weeks: Inside the [place] - Psychiatric History Pschychiatric History:: Denies:: Anxiety, Depression Family Hx:: Diabetes, Hypertension, Stroke, Substance abuse Para: 1 Meds Home Medications Medication Instructions Recorded Confirmed Type Vit Calc,Iron,Folic [Kpn] 1 tab PO DAILY 01/27/21 02/18/21 History Allergies Allergy/AdvReac Type Severity Reaction Status Date / Time amoxicillin Allergy Mild Verified 02/16/21 15:47 Penicillins Allergy Mild hives Verified 02/16/21 15:47 Exam Vital signs and Labs for Last 24 Hours: Temp Pulse Resp BP Pulse Ox 98.2 F 80 20 116/59 L 99 02/18/21 05:45 02/18/21 05:45 02/18/21 05:45 02/18/21 05:45 02/18/21 05:45 Laboratory Results - last 24 hr 02/18/21 05:55: WBC 10.3, RBC 3.85 L, Hgb 11.5 L, Hct 33.9 L, MCV 88.0, MCH 29.9, MCHC 33.9, RDW 13.5, Plt Count 256, MPV 8.5, Neut % (Auto) 61.8, Lymph % (Auto) 32.3, [place] % (Auto) 4.9, Eos % (Auto) 0.5, Baso % (Auto) 0.4, Neut # (Auto) 6.4, Lymph # (Auto) 3.3, [place] # (Auto) 0.5, Eos # (Auto) 0.1, Baso # (Auto) 0.1 02/18/21 05:55: Urine Color Yellow, Urine Appearance Clear, Urine pH 6.5, Ur Specific [place] 1.020, Urine Protein Negative, Urine Glucose (UA) Negative, Urine Ketones Negative, Urine Blood Negative, Urine Nitrate Negative, Urine Bilirubin Negative, Urine Urobilinogen 0.2, Ur Leukocyte Esterase 2+ A, Urine RBC Occasional, Urine WBC 5-10, Ur Squamous Epith Cells 3-5, Urine Bacteria Trace 02/18/21 05:55: Urine Opiates Screen Negative, Urine Methadone Screen Negative, Ur Barbituates Screen Negative, Ur Phencyclidine Scrn Negative, Ur Amphetamines Screen Negative, U Benzodiazepines Scrn Negative, Urine Cocaine Screen Negative, U Marijuana (THC) Screen Negative 02/18/21 05:55: Blood Type O Negative, Antibody Screen Negative I & O for Last 24 hours: Intake & Output 02/16/21 02/17/21 02/18/21 02/19/21 11:59 11:59 11:59 11:59 Weight 232 lb - Constitutional no acute distress - *Routine HEENT Exam Head: Present: normocephalic Eye: Present: EOMI, PERRL ENT: Present: mucous membranes moist - *Routine Neck Exam Present: supple, full ROM - *Routine Respiratory Exam Absent: accessory muscle use (good air entry bilaterally), wheezes, crackles - *Routine Extremities Exam Present: full ROM. Absent: cyanosis, edema, calf tenderness Assessment and Plan (1) Oligohydramnios Status: Acute Category: Medical Code(s): O41.00X0 - Oligohydramnios, unspecified trimester, not applicable or unspecified (2) Normal delivery Status: Acute Category: Medical Code(s): O80 - Encounter for full-term uncomplicated delivery
[2021-02-18 15:01] LABS: Cord Blood PH 7.41 (7.35-7.45)
--- NOTE | 2021-02-18 15:20 | HMH.DN ---
- Delivery Note Delivery Date:: 02/18/21 Delivery Time:: 14:43 Anesthesia Type: Epidural Was labor medically induced?: Yes Induction method: per pitocin protocol Gestational age (weeks): 39 delivered prior to 39 weeks?: No Justification for early elective delivery:: Oligohydraminos Infant Gender: Female at 1 minute: 8 at 5 minutes: 9 Delivery Procedure:: She is a 20-year-old 2 para 1 at 39 weeks gestational age. She had mild oligohydramnios and as result of that we elected to induce her labor at term. She was started on IV oxytocin and had her membranes ruptured. Under labor epidural she progressed to full dilation and delivered spontaneously a liveborn female child at 2:43 PM in the afternoon of February 18, 2021. On deliver the head it was noted there was a loose nuchal cord. The rest the infant's body delivered atraumatically. It was noted at the time of delivery that there was a second nuchal cord that slid down over the shoulders and down the body with the rest the infant's body delivering. Baby was vigorous so we allowed the cord to continue to pulsate for approximately 1 minute. The oropharynx and nasopharynx were bulb suction. The was then placed on the mother's abdomen for further care. The nurse assigned Apgars of 8 at 1 minute and 9 at 5 minutes. She then received IV oxytocin and using gentle traction on the cord and countertraction on the fundus I was able to easily deliver the placenta intact. It had a normal three-vessel cord. There were no perineal or vaginal lacerations. She has O Rh- blood, she is rubella immune and was group B streptococcus negative. Her estimated blood loss was approximately 250 cc. Placental Delivery Description: Spontaneous
[2021-02-19 07:16] LABS: Hematocrit 31.2 % (37.0-47.0); Hemoglobin 10.5 g/dL (12.2-16.2)
--- NOTE | 2021-02-19 08:24 | HMH.ACPN2 ---
Internal Medicine - PN: Subj *Date: 02/19/21 *Time: 08:24 Interval history: She continues to do very well. She is eating and drinking and ambulating. She is breast-feeding. Her lochia is normal. She denies any pain. Exam Vital signs and Labs for Last 24 Hours: Temp Pulse Resp BP Pulse Ox 98.2 F 80 20 116/59 L 99 02/18/21 05:45 02/18/21 05:45 02/18/21 05:45 02/18/21 05:45 02/18/21 05:45 Laboratory Results - last 24 hr 02/18/21 05:55: Urine Opiates Screen Negative, Urine Methadone Screen Negative, Ur Barbituates Screen Negative, Ur Phencyclidine Scrn Negative, Ur Amphetamines Screen Negative, U Benzodiazepines Scrn Negative, Urine Cocaine Screen Negative, U Marijuana (THC) Screen Negative 02/18/21 14:58: Cord ABG pH 7.41 02/19/21 06:58: Hgb 10.5 L, Hct 31.2 L I & O for Last 24 hours: Intake & Output 02/16/21 02/17/21 02/18/21 02/19/21 11:59 11:59 11:59 11:59 Weight 232 lb Microbiology Reports for the Last 24 Hours: Microbiology 02/18/21 05:55 Urine,Clean Catch Urine Culture - Preliminary NO GROWTH AFTER 24 HOURS - Constitutional no acute distress - *Routine HEENT Exam Head: Present: normocephalic Eye: Present: EOMI, PERRL ENT: Present: mucous membranes moist Assessment and Plan (1) Oligohydramnios Status: Acute Category: Medical Code(s): O41.00X0 - Oligohydramnios, unspecified trimester, not applicable or unspecified (2) Normal delivery Status: Acute Category: Medical Code(s): O80 - Encounter for full-term uncomplicated delivery - Assessment and plan all Dx Assessment and Plan for all problems:: She continues to do well. We will plan to send her home tomorrow.
--- NOTE | 2021-02-19 15:08 | SW/DCPLANNER ---
RECEIVED REFERRAL FOR THIS PATIENT THAT HAD A UDS POSITIVE X1 FOR METHAPHETAMINES BACK IN ..... WENT IN TO SEE PATIENT AND THIS AFTERNOON PATIENT WAS AND SHE STATED SHE HAS EVERYTHING SHE NEEDS TO TAKE HER INFANT HOME.. SHE HAS A 2 YR OLD AT HOME ALSO... SHE DOESN'T UNDERSTAND HOW THE METHAPHETAMINES GOT IN HER SYSTEM.. IT WAS A ONE TIME REPORT ALL OTHER SCREEN WERE NEGATIVE.. SHE IS APPROPRIATE AND SO IS DAD.. SHE PLANS TO USE DR MOROCHO THE INFANTS DOCTOR, THEY RESIDE IN MUSE AND RECEIVE FOOD STAMPS AND SHE STATED SHE DID HAVE WIC AND LET IT LAPSE BUT IS GOING TO GET IT REINSTATED.. THE CORD SCREEN WAS COLLECTED AND SENT OFF, IF IT SHOULD COME BACK POSITIVE, IT WILL BE REPORTED FOR INVESTIGATION... THE PLAN IS FOR PATIENT AND TO DISCHARGE HOME IN THE AM... CARSEAT IS IN THE CAR...
--- NOTE | 2021-02-20 09:06 | P.DS_ITS ---
General - General Admission date:: 02/18/21 Discharge date: 02/20/21 HPI - History of Present Illness History of present illness: She is a 20-year-old 2 para 1 at 39 weeks gestational age. She had mild oligohydramnios and as result of that was admitted for induction of labor at term. Hospital Course Hospital Course: She was started on IV oxytocin and had her membranes ruptured. Under labor epidural she progressed to full dilation and delivered spontaneously a liveborn female child on February 18, 2021. The baby weighed 8 pounds 4 ounces and was 20 inches long. She had Apgars of 8 at 1 minute and 9 at 5 minutes. She has done well and has remained afebrile throughout her hospitalization. She is eating and drinking and ambulating. She is breast- feeding. 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 She has O Rh- blood and she did not receive RhoGam because the baby is Rh-. She is rubella nonimmune and will receive MMR. She was group B streptococcus negative. She is discharged home to follow-up with me in approximately 2 weeks time. She will continue with her vitamins and iron. She will continue with the breast-feeding. Her condition on discharge is stable and improved. Rhogam Administration: Not Indicated Objective Vital signs: Temp Pulse Resp BP Pulse Ox 98.2 F 80 20 116/59 L 99 02/18/21 05:45 02/18/21 05:45 02/18/21 05:45 02/18/21 05:45 02/18/21 05:45 no acute distress - *Routine HEENT Exam Head: Present: normocephalic Eye: Present: EOMI, PERRL ENT: Present: mucous membranes moist DS: Diagnosis - Discharge Diagnosis (1) Oligohydramnios Status: Acute (2) Normal delivery Status: Acute Discharge Plan - Patient Discharge Instructions ACTIVITY: No heavy lifting DIET: continue same diet Additional Instructions: * Nothing in the Vagina for 6 WEEKS* * No heavy lifting* * No strenuous activity* Patient Instructions: Depression, Hemorrhage, DI for Labor and Delivery, Vaginal , DI for Pre-eclampsia, [facility] Post Discharge Instructions, Preventing the Spread of Coronavirus Discharge Instructions - Follow up Plan Follow up with: Isaías Batres MD [Staff Physician] - 03/04/21 11:00 am Disposition: Home, Self-Care Condition at discharge:: Improved Home Medications: Home Medications Medication Instructions Recorded Confirmed Type Vit Calc,Iron,Folic [Kpn] 1 tab PO DAILY 01/27/21 02/18/21 History Prescriptions/Medication Reconciliation: Continued Vit Calc,Iron,Folic [Kpn] 1 tab PO DAILY - Problem Reconciliation Problems Reviewed?: Yes
== END 2021-02-20 11:55 | disposition home or self-care (01) | DRG 807 ==
LOC: 2ND 04:58 → OB 05:01
PROVIDERS: Admitting Provider Nurse Practitioner Obstetrics & Gynecology; PCP Family Medicine; Visit Provider Nurse Practitioner Obstetrics & Gynecology
DX: O41.03X0 Oligohydramnios, third trimester, not applicable or unspecified (principal); Z37.0 Single live birth; Z3A.39 39 weeks gestation of pregnancy; O69.81X0 Labor and delivery complicated by cord around neck, without compression, not applicable or unspecified
CPT/HCPCS: 59409; 36415; 59025; 80305; 81001; 82800; 85014; 85018; 85025; 86850; 87086; 94761; C1758; G0283; U0003

== ENCOUNTER 2022-01-08 15:24 | Emergency (ER) | payer OTHER, SELFPAY ==
[2022-01-08 15:27] VITALS: BP 101/52; PULSE 99; RESP 20; TEMP 36.8; O2SAT 98; BMI 26.9
--- NOTE | 2022-01-08 16:06 | HMH.EDGENADL ---
ED Disposition Clinical Impression: Gastroenteritis Disposition: Home, Self-Care Condition on Discharge: Good Instructions: DI for Viral Gastroenteritis -- Adult Additional Instructions: Follow-up diarrhea panel results with your primary care provider tomorrow or Tuesday. Phenergan as needed for nausea and vomiting. Tylenol as needed for fever or pain. Additional instructions for VOMITING/DIARRHEA: See your physician as soon as possible for further evaluation. Drink plenty of fluids. Return immediately if severe abdominal pain, uncontrollable vomiting, shortness of breath, fever, bloody diarrhea, vomiting of blood or abdominal distention. Prescriptions: Promethazine HCl [Phenergan 25mg tab] 25 mg PO Q6HP PRN #10 tab PRN Reason: Nausea And Vomiting Transmission Status: Pending to [id number] Referrals: Merlyn Gimenez MD [Primary Care Provider] - - Critical Care Critical Care Time: No Attestation: On 01/08/22, the high probability of a clinically significant, sudden or life threatening deterioration of the following system(s) required my full and direct attention, intervention and personal management. The time I documented below is in addition to time spent performing reported procedures but includes the following listed in this critical care notation. Medical Decision Making - Maged Inquiry Pt receiving controlled substance: No Vital Signs: 01/08/22 15:27 01/08/22 16:39 01/08/22 17:00 Temperature 98.2 F Temperature Source Oral Pulse Rate 94 H 89 Pulse Rate [Radial] 99 H Respiratory Rate 20 16 16 Blood Pressure 126/63 121/63 Blood Pressure [Right Arm] 101/52 L Blood Pressure Mean 74 75 Blood Pressure Mean [Right Arm] 68 Blood Pressure Position [Right Arm] Sitting 02 Sat by Pulse Oximetry 98 97 98 Oxygen Delivery Method Room Air 01/08/22 17:30 Temperature Temperature Source Pulse Rate 101 H Pulse Rate [Radial] Respiratory Rate 17 Blood Pressure 121/62 Blood Pressure [Right Arm] Blood Pressure Mean 82 Blood Pressure Mean [Right Arm] Blood Pressure Position [Right Arm] 02 Sat by Pulse Oximetry 99 Oxygen Delivery Method - Lab Data Lab Results 01/08/22 15:35: Urine Color Kya, Urine Appearance Clear, Urine pH 6.0, Ur Specific [place] 1.020, Urine Protein Trace, Urine Glucose (UA) Negative, Urine Ketones Trace, Urine Blood Negative, Urine Nitrate Negative, Urine Bilirubin 1+ A, Urine Urobilinogen 0.2, Ur Leukocyte Esterase Negative, Urine RBC Occasional, Urine WBC None, Ur Squamous Epith Cells 3-5, Urine Bacteria Trace 01/08/22 16:00: WBC 10.0, RBC 4.64, Hgb 14.1, Hct 39.9, MCV 86.1, MCH 30.3, MCHC 35.2, RDW 12.6, Plt Count 262, MPV 8.8, Neut % (Auto) 90.5 H, Lymph % (Auto) 4.4 L, [place] % (Auto) 3.7, Eos % (Auto) 0.4, Baso % (Auto) 0.9, Neut # (Auto) 9.1 H, Lymph # (Auto) 0.4 L, [place] # (Auto) 0.4, Eos # (Auto) 0.0, Baso # (Auto) 0.1, Total Counted 100, Neutrophils % (Manual) 91 H, Lymphocytes % (Manual) 6 L, Monocytes % (Manual) 3, Platelet Estimate Normal, RBC Morphology Normal 01/08/22 16:00: Sodium 136, Potassium 3.3 L, Chloride 104, Carbon Dioxide 21 L, Anion Gap 14.3, BUN 11, Creatinine 0.80, Estimated Creat Clear 144, Estimated GFR 90, Est GFR ( Amer) 109, Glucose 98, Calcium 8.6, Total Bilirubin 0.9, AST 30, ALT 18, Alkaline Phosphatase 84, Total Protein 7.1, Albumin 4.4, Globulin 2.7, Albumin/Globulin Ratio 1.6 01/08/22 16:00: Serum HCG, Qual Negative Result diagrams: 01/08/22 16:00 01/08/22 16:00 Orders (Tests/Meds): ED MEDICATIONS Discontinued Medications Generic Name Dose Route Start Last Admin Trade Name Freq PRN Reason Stop Dose Admin Sodium Chloride 1,000 mls @ 999 mls/hr 01/08/22 15:45 01/08/22 16:10 Sod Chlor 0.9% 1000ml Bag IV 01/08/22 16:45 999 mls/hr .Q1H1M SABRINA Administration Ondansetron HCl 4 mg 01/08/22 15:35 01/08/22 16:10 Ondansetron 4mg/2ml Vial IV 01/08/22 15:36 4 mg ONCE ONE Admini
[2022-01-08 16:16] LABS: HCG Qualitative, Serum Negative (Negative)
[2022-01-08 16:20] LABS: Chloride 104 mmol/L (98-107); Potassium 3.3 mmoL/L (3.5-5.1); Sodium 136 mmol/L (136-145)
[2022-01-08 16:22] LABS: Basophils # 0.1 K/mm3 (0-0.2); Basophils % 0.9 % (0.1-2.0); Eosinophils % 0.4 % (0.1-12.0); Hematocrit 39.9 % (37.0-47.0); Hemoglobin 14.1 g/dL (12.2-16.2); Lymphocytes # 0.4 K/mm3 (0.7-4.5); Lymphocytes % 4.4 % (10-50); Mean Corpuscular HGB Conc 35.2 g/dL (31.8-35.4); Mean Corpuscular Hemoglobin 30.3 pg (27.0-31.2); Mean Corpuscular Volume 86.1 fl (81-99); Mean Platelet Volume 8.8 fl (7.4-10.4); Monocytes # 0.4 K/mm3 (0.1-1.0); Monocytes % 3.7 % (1.7-9.3); Neutrophils # 9.1 K/mm3 (1.8-7.8); Neutrophils % 90.5 % (37.0-80.0); Platelet Count 262 K/mm3 (142-424); Red Blood Count 4.64 M/mm3 (4.20-5.40); Red Cell Distribution Width 12.6 % (11.5-17.5)
[2022-01-08 16:23] LABS: Alanine Aminotransferase 18 U/L (12-78); Albumin Level 4.4 g/dl (3.5-5.0); Albumin/Globulin Ratio 1.6 (1.1-1.8); Alkaline Phosphatase 84 U/L (38-126); Anion Gap 14.3 mEq/L (5-15); Aspartate Amino Transferase 30 U/L (14-36); Bilirubin,Total 0.9 mg/dl (0.2-1.3); Blood Urea Nitrogen 11 mg/dl (7-17); Carbon Dioxide 21 mmol/L (22.0-30.0); Creatinine Clearance Estimated 144 mL/min (50-200); Estimated Glomerular Filt Rate 90 ml/min (>60); GFR (African American) 109 ML/MIN (>60); Globulin 2.7 g/dL (1.3-3.2); Total Protein,Serum 7.1 g/dl (6.3-8.2)
[2022-01-08 16:24] LABS: Calcium 8.6 mg/dl (8.4-10.2); Glucose 98 mg/dl (74-100); MANUAL DIFFERENTIAL MANUAL DIFFERENTIAL (MANUAL DIFF)
[2022-01-08 16:26] LABS: Microscopic, Urine URINE MICROSCOPIC (MICROSCOPIC)
[2022-01-08 16:29] LABS: Appearance,Urine CLEAR (Clear); Blood, Urine Negative (Negative); Color,Urine AMBER (Yellow); Glucose,Urine (UA) Negative (Negative); Ketones,Urine TRACE (Negative); Leukocyte Esterase,Urine Negative (Negative); Nitrate,Urine Negative (Negative); Protein,Urine TRACE (Negative); Urobilinogen,Urine 0.2 EU/dl (0.2)
[2022-01-08 16:39] VITALS: BP 126/63; PULSE 94; RESP 16; O2SAT 97
[2022-01-08 16:48] LABS: Bilirubin,Urine 1+ (Negative)
[2022-01-08 16:49] LABS: Bacteria,Urine Trace /lpf; RBC,Urine Occasional #/hpf (0-3)
[2022-01-08 17:00] VITALS: BP 121/63; PULSE 89; RESP 16; O2SAT 98
[2022-01-08 17:02] LABS: Lymphocytes % 6 % (10-50); Monocytes % 3 % (2-9); Neutrophils % 91 % (42-76); Platelet Estimate Normal; RBC Morphology Normal; Total Cells Counted 100
[2022-01-08 17:30] VITALS: BP 121/62; PULSE 101; RESP 17; O2SAT 99
[2022-01-08 18:25] VITALS: BP 104/54; PULSE 91; RESP 18; TEMP 36.8; O2SAT 98
== END 2022-01-08 18:35 | disposition home or self-care (01) ==
PROVIDERS: Emergency Provider Emergency Medicine; PCP Family Medicine
DX: K52.9 Noninfective gastroenteritis and colitis, unspecified (principal); Z88.0 Allergy status to penicillin
CPT/HCPCS: 80053; 81001; 84703; 85007; 85025; 96360; 96365; 96375; 99284; J2405

== ENCOUNTER 2022-01-19 13:01 | Emergency (ER) | payer OTHER, SELFPAY ==
[2022-01-19 14:20] VITALS: BP 103/73; PULSE 71; RESP 19; TEMP 36.9; O2SAT 97; BMI 27.6
[2022-01-19 14:33] LABS: Apearance,Urine Clear (Clear); Bilirubin,Urine Negative (Negative); Blood, Urine Negative (Negative); Color,Urine Yellow (Yellow); Glucose,Urine (UA) Negative (Negative); Ketones,Urine Negative (Negative); Protein,Urine Negative (Negative); UTC Leukocyte Esterase,Urine Negative (Negative); UTC Nitrate,Urine Negative (Negative); UTC Pregnancy Test, Urine Negative (Negative); Urobilinogen,Urine 0.2 EU/dl (0.2)
--- NOTE | 2022-01-19 14:34 | XR_ITS ---
FINAL REPORT CLINICAL HISTORY: CONSTIPATION FINDINGS: There is a nonobstructive bowel gas pattern. There are no abnormally dilated loops of small bowel. No abnormal calcification is identified. IMPRESSION: Nonobstructive bowel gas pattern. Reviewed, Interpreted and Dictated by Víctor Vazquez MD Transcribed by Sage Orantes Authenticated by Víctor Vazquez MD on 01/19/2022 04:11:[address] [facility]
--- NOTE | 2022-01-19 14:52 | HMH.EDUTC ---
[facility] [place] Clinical Impression: Viral syndrome Disposition: Home, Self-Care Condition on Discharge: Good Instructions: DI for Viral Gastroenteritis -- Adult, Ondansetron Additional Instructions: Drink plenty of fluids. Take tylenol or ibuprofen for pain or fever. Take the medications as directed. Follow up with your regular doctor. GO TO THE ER FOR ANY WORSENING SYMPTOMS If your symptoms get worse please return and go to the er. Prescriptions: Ondansetron [Zofran 4mg ODT] 4 mg PO Q8HP PRN #20 tab PRN Reason: Nausea Transmission Status: Received by [facility] Referrals: Merlyn Gimenez MD [Primary Care Provider] - Time of Disposition: 15:51 Medical Decision Making - Medical Records Medical records reviewed: No: I reviewed the patient's medical records. - Maged Inquiry Pt receiving controlled substance: No Vital Signs: 01/19/22 14:20 01/19/22 16:02 Temperature 98.5 F 98.5 F Temperature Source Oral Pulse Rate 71 Pulse Rate [Right Brachial] 71 Respiratory Rate 19 19 Blood Pressure 103/73 L Blood Pressure [Right Arm] 103/73 L Blood Pressure Mean [Right Arm] 83 Blood Pressure Source [Right Arm] Automatic Cuff Blood Pressure Position [Right Arm] Sitting 02 Sat by Pulse Oximetry 97 Oxygen Delivery Method Room Air - Lab Data Lab results reviewed: Yes: I reviewed the patient's lab results. Lab Results 01/19/22 14:28: Urine Color Yellow, Urine Appearance Clear, Urine pH 6.0, Ur Specific [place] 1.020, Urine Protein Negative, Urine Glucose (UA) Negative, Urine Ketones Negative, Urine Blood Negative, Urine Nitrate Negative, Urine Bilirubin Negative, Urine Urobilinogen 0.2, Ur Leukocyte Esterase Negative, Tst Clinic Negative 01/19/22 15:13: Influenza Type A Ag Negative, Influenza Type B Ag Negative 01/19/22 15:20: Group A Strep Rapid Negative Orders (Tests/Meds): ORDERS Category Date Time Status Strep Screen Confirmation Stat Micro 01/19/22 15:20 [place] [facility] [place] - General Stated complaint: abd pains, vomiting Time Seen by Provider: 01/19/22 14:53 Mode of Arrival: Ambulatory Source of Information: Patient Limitations: No Limitations Description of Symptoms (Recalled from Triage Doc. by RN): PATEINT C/O ABDOMINAL PAIN, NAUSEA AND VOMITING X 1 DAYS. LAST BOWEL MOVEMENT WAS 4 DAYS AGO HEENT Symptoms (Recalled from RN notes): No Resp Symptoms (Recalled from RN notes): No Skin Symptoms (Recalled from RN notes): No MS Symptoms (Recalled from RN notes): No Functional Status (Recalled from RN notes): WNL - History of Present Illness Provider Complaint: She c/o n/v and abdominal cramping since earlier today. - Related Data Home Medications Medication Instructions Recorded Confirmed Vit Calc,Iron,Folic [Kpn] 1 tab PO DAILY 01/27/21 05/28/21 Previous Rx's Medication Instructions Recorded medroxyprogesterone 150 mg/mL 150 mg IM [id number] #1 ml 05/28/21 intramuscular suspension Promethazine HCl [Phenergan 25mg 25 mg PO Q6HP PRN #10 tab 01/08/22 tab] Ondansetron [Zofran 4mg ODT] 4 mg PO Q8HP PRN #20 tab 01/19/22 Allergies Allergy/AdvReac Type Severity Reaction Status Date / Time amoxicillin Allergy Mild Verified 05/28/21 10:35 Penicillins Allergy Mild hives Verified 05/28/21 10:35 - Worker's Comp Is this a Worker's Comp case?: No [facility] History - Hepatitis A Screen Drug use history?: No High risk sexual behaviors?: No History of sexually transmitted infection?: No Currently employed?: No Childcare worker?: No Do you have indoor plumbing?: Yes Do you have electricity?: Yes Attestation statement:: This patient has been screened for Hepatitis A risk factors. I have reviewed the patient's past medical history: Yes 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: Denies:: Anxiety, Cancer, Depression, Diabetes Mellitus Type 1, Diabetes Mellitus Type 2, Migraine, MRSA, Seizures Other Surgeries: No: Amputat
[2022-01-19 15:30] LABS: UTC Influenza A Antigen Negative (Negative)
[2022-01-19 15:31] LABS: UTC Influenza B Antigen Negative (Negative)
[2022-01-19 15:45] LABS: Strep Scrn Group A (Rapid) Negative (Negative)
[2022-01-19 16:02] VITALS: BP 103/73; PULSE 71; RESP 19; TEMP 36.9; O2SAT 97
== END 2022-01-19 16:05 | disposition home or self-care (01) ==
PROVIDERS: Emergency Provider Nurse Practitioner Family; PCP Family Medicine
DX: B34.9 Viral infection, unspecified (principal); R11.10 Vomiting, unspecified; Z88.0 Allergy status to penicillin; F17.210 Nicotine dependence, cigarettes, uncomplicated
CPT/HCPCS: 74018; 81003; 81025; 87430; 87804; 99213; G0463

== ENCOUNTER → 2022-07-26 14:47 | Outpatient (CLI) | payer OTHER, SELFPAY ==
[2022-07-26 16:03] LABS: HCG,Quantitative 393 mIU/ml (0-5.42)
== END ==
PROVIDERS: PCP Family Medicine; Visit Provider Nurse Practitioner Obstetrics & Gynecology
DX: N92.6 Irregular menstruation, unspecified (principal)
CPT/HCPCS: 36415; 84702

== ENCOUNTER → 2022-09-15 15:06 | Outpatient (CLI) | payer OTHER, SELFPAY ==
[2022-09-15 15:47] LABS: Basophils # 0.1 K/mm3 (0-0.2); Basophils % 0.9 % (0.1-2.0); Eosinophils # 0.1 K/mm3 (0.0-0.4); Eosinophils % 1.1 % (0.1-12.0); Hematocrit 39.4 % (37.0-47.0); Hemoglobin 13.4 g/dL (12.2-16.2); Lymphocytes # 2.7 K/mm3 (0.7-4.5); Mean Corpuscular Hemoglobin 29.4 pg (27.0-31.2); Mean Corpuscular Volume 86.4 fl (81-99); Mean Platelet Volume 8.3 fl (7.4-10.4); Monocytes # 0.3 K/mm3 (0.1-1.0); Neutrophils # 6.8 K/mm3 (1.8-7.8); Platelet Count 283 K/mm3 (142-424); Red Blood Count 4.56 M/mm3 (4.20-5.40); Red Cell Distribution Width 13.6 % (11.5-17.5)
[2022-09-17 08:52] LABS: Rubella Antibodies, IgG <0.90 index (Immune >0.99)
[2022-09-17 12:03] LABS: Rapid Plasma Reagin Ab Titer Non Reactive (NonRea<1:1)
[2022-09-25 22:37] LABS: HIV Screen 4th Generation wRfx NON REACTIVE; Hepatitis B Surface Antigen NEGATIVE; Hepatitis C Antibody <0.1
== END ==
PROVIDERS: PCP Family Medicine; Visit Provider Nurse Practitioner Obstetrics & Gynecology
DX: Z34.90 Encounter for supervision of normal pregnancy, unspecified, unspecified trimester (principal); Z3A.38 38 weeks gestation of pregnancy
CPT/HCPCS: 36415; 84702; 85025; 86592; 86703; 86762; 86850; 87340; 87380; G0432

== ENCOUNTER → 2022-11-22 09:20 | Outpatient (CLI) | payer OTHER, SELFPAY ==
--- NOTE | 2022-11-22 09:25 | US_ITS ---
FINAL REPORT CLINICAL HISTORY: 20 week anatomy scan FINDINGS: There is a single live intrauterine gestation. Presentation is breech. The cervix is closed and measures 3.21 cm. Placenta is posterior fundal, grade 1. movement is noted. Cardiac activity is measured at 150 beats per minute. Three-vessel cord with satisfactory umbilical cord insertion. Four-chamber heart is noted. brain and ventricles are unremarkable. Note is made of a choroid plexus cyst. Can be an incidental finding, however attention should be paid to this on follow-up. Chest and diaphragm are unremarkable. ABDOMEN: Both kidneys are unremarkable. Stomach is unremarkable. SPINE: No anomalies identified. Both arms and legs noted. AMNIOTIC FLUID: Appropriate amount. MEASUREMENTS: ULTRASOUND AGE: 21 days 1 days. GESTATION AGE: 21 days 1 days. ESTIMATED WEIGHT: 432 g GROWTH PERCENTILE: 67% LMP percentile BPD: 4.8 cm corresponding with 20 weeks 5 days. OFD: 6.2 cm corresponding with 20 weeks 6 days. HC: 17.5 cm corresponding with 20 weeks 0 days. AC: 17.1 cm corresponding with 22 weeks 1 days. FL: 3.6 cm corresponding with 21 weeks 3 days. CEREBELLUM: 2.1 cm corresponding with 21 weeks 1 days. HUMERUS: 3.4 cm corresponding with 21 weeks 4 days. HC/AC: 1.02 CI: 78% FL/BPD: 74% FL/AC: 21% IMPRESSION: Single living IUP with an ultrasound age of 21 weeks 1 days. Choroid plexus cyst is noted which may be incidental however attention should be paid to this on follow-up. Reviewed, Interpreted and Dictated by Kelly Kearney MD Transcribed by Supriya Ansari Authenticated and . [facility]
== END ==
PROVIDERS: PCP Family Medicine; Visit Provider Nurse Practitioner Obstetrics & Gynecology
DX: Z34.90 Encounter for supervision of normal pregnancy, unspecified, unspecified trimester (principal); Z3A.20 20 weeks gestation of pregnancy
CPT/HCPCS: 76811

== ENCOUNTER 2022-12-29 10:02 | Outpatient (CLI) | payer OTHER, SELFPAY ==
[2022-12-29 10:25] LABS: Basophils # 0.1 K/mm3 (0-0.2); Basophils % 0.6 % (0.1-2.0); Eosinophils # 0.1 K/mm3 (0.0-0.4); Eosinophils % 1.2 % (0.1-12.0); Hematocrit 35.6 % (37.0-47.0); Lymphocytes # 2.5 K/mm3 (0.7-4.5); Lymphocytes % 25.3 % (10-50); Mean Corpuscular HGB Conc 33.6 g/dL (31.8-35.4); Mean Corpuscular Hemoglobin 30.9 pg (27.0-31.2); Mean Platelet Volume 7.8 fl (7.4-10.4); Monocytes # 0.4 K/mm3 (0.1-1.0); Monocytes % 4.2 % (1.7-9.3); Neutrophils # 6.8 K/mm3 (1.8-7.8); Neutrophils % 68.7 % (37.0-80.0); Platelet Count 288 K/mm3 (142-424); Red Blood Count 3.87 M/mm3 (4.20-5.40); Red Cell Distribution Width 12.5 % (11.5-17.5); White Blood Count 9.8 K/mm3 (4.8-10.8)
[2022-12-29 11:21] LABS: Glucose,Fasting 84 mg/dl (74-100)
[2022-12-29 11:35] VITALS: BP 122/59; PULSE 84; RESP 18; O2SAT 100
[2022-12-29 11:50] LABS: Glucose 1 Hour 112 mg/dL (74-100)
== END 2022-12-29 11:35 | disposition home or self-care (01) ==
LOC: LAB 10:02
PROVIDERS: PCP Family Medicine; Visit Provider Nurse Practitioner Obstetrics & Gynecology
DX: Z34.90 Encounter for supervision of normal pregnancy, unspecified, unspecified trimester (principal)
CPT/HCPCS: 36415; 82951; 85025; 96372; J2790

== ENCOUNTER → 2023-01-12 12:50 | Outpatient (CLI) | payer OTHER, SELFPAY ==
--- NOTE | 2023-01-12 12:50 | ECG_ITS ---
APPROVED REPORT Exam: Resting ECG HR:75 bpm ECG Measurements Heart Rate 75 AXES [place] 134 P 50 QRSd 87 QRS 55 QT 366 T 39 QTc 395 Conclusion SINUS RHYTHM WITH SINUS ARRHYTHMIA NONSPECIFIC T-WAVE ABNORMALITY BORDERLINE ECG UNCONFIRMED REPORT Electronically signed by : Horacio Tabor MD 01/12/2023 17:34:58
== END ==
PROVIDERS: PCP Family Medicine; Visit Provider Nurse Practitioner Obstetrics & Gynecology
DX: R00.0 Tachycardia, unspecified (principal)
CPT/HCPCS: 93005

== ENCOUNTER → 2023-01-27 10:12 | Outpatient (CLI) | payer OTHER, SELFPAY | PROVIDERS: PCP Family Medicine; Visit Provider Physician Assistant | DX: R00.0 Tachycardia, unspecified (principal); R94.31 Abnormal electrocardiogram [ECG] [EKG]; Z3A.28 28 weeks gestation of pregnancy | CPT/HCPCS: 93306 ==

== ENCOUNTER 2023-02-14 21:51 | Outpatient (CLI) | payer OTHER, SELFPAY ==
[2023-02-14 22:00] VITALS: BMI 33.5
[2023-02-14 22:06] LABS: Microscopic, Urine URINE MICROSCOPIC (MICROSCOPIC)
[2023-02-14 22:22] VITALS: BP 113/56; PULSE 98; RESP 19; TEMP 36.9; O2SAT 98; BMI 32.8
[2023-02-14 22:28] LABS: Appearance,Urine CLEAR (Clear); Bilirubin,Urine Negative (Negative); Blood, Urine Negative (Negative); Color,Urine YELLOW (Yellow); Glucose,Urine (UA) Negative (Negative); Ketones,Urine Negative (Negative); Leukocyte Esterase,Urine Negative (Negative); Nitrate,Urine Negative (Negative); Protein,Urine Negative (Negative); Specific Gravity, Urine 1.025 (1.005-1.030); Urobilinogen,Urine 0.2 EU/dl (0.2)
[2023-02-14 22:39] LABS: Benzodiazepines Screen,Urine Negative ng/ml (<200)
[2023-02-14 22:40] LABS: Amphetamine/Metha Screen,Urine Negative ng/ml (<1000); Barbiturates Screen,Urine Negative ng/ml (<200)
[2023-02-14 22:41] LABS: Cannabinoid Screen,Urine Negative ng/ml (<50); Cocaine Screen,Urine Negative ng/ml (<300)
[2023-02-14 22:42] LABS: Methadone Screen,Urine Negative ng/ml (<300)
[2023-02-14 22:43] LABS: Opiate Screen,Urine Negative ng/ml (<300); Phencyclidine Screen,Urine Negative ng/ml (<25)
[2023-02-14 23:09] LABS: Squamous Epithelial Cell,Urine Occasional #/hpf (0-5); WBC,Urine Occasional #/hpf (0-3)
== END 2023-02-14 22:58 | disposition home or self-care (01) ==
LOC: OBOUT 21:54 → OB 21:55
PROVIDERS: PCP Family Medicine; Visit Provider Obstetrics & Gynecology
DX: O26.893 Other specified pregnancy related conditions, third trimester (principal); Z3A.33 33 weeks gestation of pregnancy; R10.2 Pelvic and perineal pain; M25.551 Pain in right hip; M25.552 Pain in left hip
CPT/HCPCS: 80305; 81001

== ENCOUNTER 2023-02-19 21:04 | Outpatient (CLI) | payer OTHER, SELFPAY ==
[2023-02-19 21:11] VITALS: BP 122/67; PULSE 103; RESP 18; TEMP 36.9; O2SAT 97; BMI 33.0
[2023-02-19 21:42] LABS: Microscopic, Urine URINE MICROSCOPIC (MICROSCOPIC)
[2023-02-19 21:43] LABS: Appearance,Urine CLEAR (Clear); Bilirubin,Urine Negative (Negative); Blood, Urine Negative (Negative); Color,Urine YELLOW (Yellow); Glucose,Urine (UA) Negative (Negative); Ketones,Urine Negative (Negative); Leukocyte Esterase,Urine Negative (Negative); Nitrate,Urine Negative (Negative); Protein,Urine Negative (Negative); Urobilinogen,Urine 0.2 EU/dl (0.2)
[2023-02-19 22:03] LABS: Barbiturates Screen,Urine Negative ng/ml (<200)
[2023-02-19 22:03] LABS: Fetal Membrane Rupture (Rapid) Negative (Negative)
[2023-02-19 22:04] LABS: Amphetamine/Metha Screen,Urine Negative ng/ml (<1000); Benzodiazepines Screen,Urine Negative ng/ml (<200)
[2023-02-19 22:05] LABS: Cannabinoid Screen,Urine Negative ng/ml (<50); Cocaine Screen,Urine Negative ng/ml (<300)
[2023-02-19 22:06] LABS: Methadone Screen,Urine Negative ng/ml (<300)
[2023-02-19 22:07] LABS: Opiate Screen,Urine Negative ng/ml (<300); Phencyclidine Screen,Urine Negative ng/ml (<25)
[2023-02-19 22:23] LABS: Bacteria,Urine Trace /lpf; Squamous Epithelial Cell,Urine Occasional #/hpf (0-5)
== END 2023-02-19 22:15 | disposition home or self-care (01) ==
LOC: OBOUT 21:06 → OB 21:08
PROVIDERS: PCP Family Medicine; Visit Provider Obstetrics & Gynecology
DX: O26.893 Other specified pregnancy related conditions, third trimester (principal); Z3A.33 33 weeks gestation of pregnancy; O41.93X0 Disorder of amniotic fluid and membranes, unspecified, third trimester, not applicable or unspecified; R10.2 Pelvic and perineal pain
CPT/HCPCS: 59025; 80305; 81001; 84112

== ENCOUNTER → 2023-02-25 12:48 | Outpatient (CLI) | payer OTHER, SELFPAY ==
--- NOTE | 2023-02-25 12:51 | US_ITS ---
FINAL REPORT CLINICAL HISTORY: sga COMPARISON: 11/22/2022 FINDINGS: There is a single live intrauterine gestation. Presentation is cephalic. The cervix is closed and measures 3 cm. Placenta is fundal grade 2. movement is noted. Heart rate is detected at 156 beats per minute. The choroid plexus cyst seen on the prior exam is not seen on the current exam. Three-vessel cord with satisfactory umbilical cord insertion. Four-chamber heart is noted. AMNIOTIC FLUID: Appropriate amount. MEASUREMENTS: ULTRASOUND AGE: 35 weeks 0 days. GESTATION AGE: 34 weeks 5 days. ESTIMATED WEIGHT: 2527 g GROWTH PERCENTILE: 49 % BPD: 8.53 cm corresponding to 34 weeks 3 days. OFD: 10.94 cm corresponding to 35 weeks 2 days. HC: 30.82 cm corresponding to 34 weeks 3 days. AC: 30.25 cm corresponding to 34 weeks 2 days. FL: 7.09 cm corresponding to 36 weeks 3 days. HC/AC: 1.02 CI: 78% FL/BPD: 83% FL/AC: 23% IMPRESSION: Single living IUP with an ultrasound age of 35 weeks 0 days. Previously seen choroid plexus cyst is not seen on the current exam. Reviewed, Interpreted and Dictated by Sudhakar Nelson III, MD Transcribed by Jaelyn Linares Authenticated and [facility]
== END ==
PROVIDERS: PCP Family Medicine; Visit Provider Nurse Practitioner Obstetrics & Gynecology
DX: O36.5990 Maternal care for other known or suspected poor fetal growth, unspecified trimester, not applicable or unspecified (principal)
CPT/HCPCS: 76816

== ENCOUNTER → 2023-03-08 15:30 | Outpatient (CLI) | payer OTHER, SELFPAY | PROVIDERS: Visit Provider Nurse Practitioner Obstetrics & Gynecology | DX: Z34.90 Encounter for supervision of normal pregnancy, unspecified, unspecified trimester (principal) | CPT/HCPCS: 86403 ==

== ENCOUNTER 2023-03-10 16:34 | Outpatient (CLI) | payer OTHER, SELFPAY ==
[2023-03-10 16:47] VITALS: BMI 33.2
[2023-03-10 17:08] LABS: Microscopic, Urine URINE MICROSCOPIC (MICROSCOPIC)
[2023-03-10 17:12] LABS: Appearance,Urine CLEAR (Clear); Bilirubin,Urine Negative (Negative); Blood, Urine Negative (Negative); Color,Urine YELLOW (Yellow); Glucose,Urine (UA) Negative (Negative); Ketones,Urine Negative (Negative); Leukocyte Esterase,Urine TRACE (Negative); Nitrate,Urine Negative (Negative); PH,Urine 6.5 (5.0-8.5); Protein,Urine Negative (Negative); Urobilinogen,Urine 0.2 EU/dl (0.2)
[2023-03-10 17:13] VITALS: BP 138/83; PULSE 94; RESP 20; TEMP 36.9; O2SAT 100; BMI 33.2
[2023-03-10 17:20] LABS: Fetal Membrane Rupture (Rapid) Negative (Negative)
[2023-03-10 17:28] LABS: Benzodiazepines Screen,Urine Negative ng/ml (<200)
[2023-03-10 17:29] LABS: Barbiturates Screen,Urine Negative ng/ml (<200)
[2023-03-10 17:30] LABS: Cannabinoid Screen,Urine Negative ng/ml (<50)
[2023-03-10 17:31] LABS: Bacteria,Urine 1+ /lpf; Cocaine Screen,Urine Negative ng/ml (<300); Methadone Screen,Urine Negative ng/ml (<300); WBC,Urine Occasional #/hpf (0-3)
[2023-03-10 17:32] LABS: Opiate Screen,Urine Negative ng/ml (<300)
[2023-03-10 17:33] LABS: Phencyclidine Screen,Urine Negative ng/ml (<25)
[2023-03-10 17:36] LABS: Amphetamine/Metha Screen,Urine Negative ng/ml (<1000)
== END 2023-03-10 17:55 | disposition home or self-care (01) ==
LOC: OBOUT 16:42 → OB 16:43
PROVIDERS: Visit Provider Nurse Practitioner Obstetrics & Gynecology
DX: O26.893 Other specified pregnancy related conditions, third trimester (principal); Z3A.36 36 weeks gestation of pregnancy
CPT/HCPCS: 59025; 80305; 81001; 84112; G0463

== ENCOUNTER → 2023-03-11 15:02 | Outpatient (CLI) | payer OTHER, SELFPAY ==
--- NOTE | 2023-03-11 15:05 | US_ITS ---
PROCEDURE: US OB BIOPHYSICAL PROFILE CLINICAL INDICATION: decreased ANA TECHNIQUE: Multiple images were obtained of the uterus. FINDINGS: The following parameters are obtained: Viable fetus in the cephalic presentation. Her established gestational age is 36 weeks and 5 days. Average ultrasound age is Average 36weeks Estimated due date by ultrasound is 04/08/2023. Estimated weight is 2,907g, 6 pound 7 ounces. weight is 44th percentile BPD: 8.89 centimeters-36weeks OFD: 10.8 centimeters-36weeks HC: 31.2cm-35 and 0 days AC: 33.2cm-37 and 1 day FL: 6.9cm-35 in 3 days heart rate: 156bpm bpm. HC/AC: 0.94 Cephalic index: 0.82 FL/BPD: 0.78 FL/AC: 0.21 Amniotic fluid index: 5.95cm Qualitative AFV: 2 breathing movements: 2 Gross body movements: 2 Tone: 2 Biophysical profile score: 8 Doppler evaluation of the umbilical artery: SD ratio: 2.15 Resistive index: 0.53 No obvious anomalies evident. Placenta: Anterior grade 2 Cervix: 3.41 centimeters IMPRESSION: 1. Viable fetus in the cephalic presentation with an anterior placenta grade 2 2. The amniotic fluid index is low at 5.95 centimeters. This has decreased from 8.21 centimeters at her last ultrasound done on 02/25/2023. The physician has been notified. 3. Biophysical profile is 8/8 with good breathing movement seen. 4. SD ratio is normal at 2.15. 5. There has been good interval growth with the fetus at the 44th percentile. 6. Limited anatomical scan appears normal. Dictated by: Isaías Batres MD 03/12/2023 12:15 Isaías Batres MD in [place] 03/12/2023 12:15
== END ==
PROVIDERS: PCP Family Medicine; Visit Provider Nurse Practitioner Obstetrics & Gynecology
DX: O28.8 Other abnormal findings on antenatal screening of mother (principal)
CPT/HCPCS: 76816; 76819; 76820

== ENCOUNTER 2023-03-11 16:18 | Outpatient (CLI) | payer OTHER, SELFPAY ==
[2023-03-11 16:28] VITALS: BMI 34.0
[2023-03-11 17:02] LABS: Fetal Membrane Rupture (Rapid) Negative (Negative)
[2023-03-11 17:04] LABS: Barbiturates Screen,Urine Negative ng/ml (<200)
[2023-03-11 17:05] LABS: Benzodiazepines Screen,Urine Negative ng/ml (<200)
[2023-03-11 17:06] LABS: Amphetamine/Metha Screen,Urine Negative ng/ml (<1000); Cannabinoid Screen,Urine Negative ng/ml (<50)
[2023-03-11 17:07] LABS: Cocaine Screen,Urine Negative ng/ml (<300)
[2023-03-11 17:08] LABS: Methadone Screen,Urine Negative ng/ml (<300); Opiate Screen,Urine Negative ng/ml (<300)
[2023-03-11 17:09] LABS: Phencyclidine Screen,Urine Negative ng/ml (<25)
[2023-03-11 17:23] VITALS: BP 131/80; PULSE 100; RESP 20; TEMP 37.5; O2SAT 99; BMI 34.0
== END 2023-03-11 18:44 | disposition home or self-care (01) ==
LOC: OBOUT 16:19 → OB 16:21
PROVIDERS: PCP Family Medicine; Visit Provider Obstetrics & Gynecology
DX: O26.893 Other specified pregnancy related conditions, third trimester (principal); Z3A.36 36 weeks gestation of pregnancy
CPT/HCPCS: 59025; 80305; 84112; 96365; G0463

== ENCOUNTER → 2023-03-14 09:56 | Outpatient (CLI) | payer OTHER, SELFPAY ==
--- NOTE | 2023-03-14 09:56 | US_ITS ---
PROCEDURE: US OB LIMITED POSITION CLINICAL INDICATION: Low ANA, OB US Limited with ANA COMPARISON: US US OB BIOPHYSICAL PROFILE from 03/11/2023 FINDINGS: The following parameters are obtained: growth measurements were not obtained. BPD: OFD: HC: AC: FL: heart rate: 150bpm bpm. HC/AC: Cephalic index: FL/BPD: FL/AC: Amniotic fluid index: 4.99cm No obvious anomalies evident that the scan was limited. Kidneys and heart four-chamber view appeared normal. bladder is seen. IMPRESSION: 1. There is a single live fetus present in cephalic presentation. Placenta is anterior grade 2. 2. Amniotic fluid is low with an amniotic fluid index of 4.99 centimeters. This has decreased over the last 3 days when it was previously 5.95 centimeters. 3. Physician has been notified. Dictated by: Isaías Batres MD 03/14/2023 16:24 Isaías Batres MD in [place] 03/14/2023 16:24
== END ==
PROVIDERS: PCP Family Medicine; Visit Provider Obstetrics & Gynecology
DX: O41.03X1 Oligohydramnios, third trimester, fetus 1 (principal)
CPT/HCPCS: 76815

== ENCOUNTER 2023-03-15 05:24 | Inpatient (IN) | payer OTHER, SELFPAY ==
[2023-03-15 05:26] VITALS: BMI 34.0
[2023-03-15 05:30] VITALS: BP 113/65; PULSE 85; RESP 20; TEMP 36.8; O2SAT 99; BMI 34.0
[2023-03-15 06:34] LABS: Coronavirus 19, PCR Not Detected (NotDetected); Influenza A, PCR Not Detected (NotDetected); Influenza B, PCR Not Detected (NotDetected); Microscopic, Urine URINE MICROSCOPIC (MICROSCOPIC)
[2023-03-15 06:36] LABS: Appearance,Urine SL CLOUDY (Clear); Bilirubin,Urine Negative (Negative); Blood, Urine Negative (Negative); Color,Urine YELLOW (Yellow); Glucose,Urine (UA) Negative (Negative); Ketones,Urine Negative (Negative); Leukocyte Esterase,Urine Negative (Negative); Nitrate,Urine Negative (Negative); Protein,Urine Negative (Negative); Specific Gravity, Urine >= 1.030 (1.005-1.030)
[2023-03-15 06:38] LABS: Basophils # 0.1 K/mm3 (0-0.2); Basophils % 0.5 % (0.1-2.0); Eosinophils # 0.1 K/mm3 (0.0-0.4); Eosinophils % 1.1 % (0.1-12.0); Hematocrit 34.2 % (37.0-47.0); Hemoglobin 11.3 g/dL (12.2-16.2); Lymphocytes % 31.9 % (10-50); Mean Corpuscular HGB Conc 33.1 g/dL (31.8-35.4); Mean Corpuscular Hemoglobin 28.9 pg (27.0-31.2); Mean Corpuscular Volume 87.3 fl (81-99); Mean Platelet Volume 7.8 fl (7.4-10.4); Monocytes # 0.4 K/mm3 (0.1-1.0); Monocytes % 4.5 % (1.7-9.3); Neutrophils # 5.8 K/mm3 (1.8-7.8); Neutrophils % 62.1 % (37.0-80.0); Platelet Count 269 K/mm3 (142-424); Red Blood Count 3.92 M/mm3 (4.20-5.40); Red Cell Distribution Width 13.3 % (11.5-17.5); White Blood Count 9.4 K/mm3 (4.8-10.8)
[2023-03-15 06:51] LABS: Bacteria,Urine 3+ /lpf; WBC,Urine Occasional #/hpf (0-3)
[2023-03-15 06:54] LABS: Amphetamine/Metha Screen,Urine Negative ng/ml (<1000); Barbiturates Screen,Urine Negative ng/ml (<200)
[2023-03-15 06:55] LABS: Benzodiazepines Screen,Urine Negative ng/ml (<200)
[2023-03-15 06:56] LABS: Cannabinoid Screen,Urine Negative ng/ml (<50)
[2023-03-15 06:57] LABS: Cocaine Screen,Urine Negative ng/ml (<300)
[2023-03-15 06:58] LABS: Methadone Screen,Urine Negative ng/ml (<300)
[2023-03-15 06:59] LABS: Opiate Screen,Urine Negative ng/ml (<300); Phencyclidine Screen,Urine Negative ng/ml (<25)
--- NOTE | 2023-03-15 07:03 | EXP.LABOR.NO ---
Labor Note Subjective: Date: 03/15/23 Time: 07:03 irregular contractions Objective: NST:: Reactive Contractions:: infrequent Cervical Dilation:: 2-3 Effacement:: 50% Station: -2 Membranes: artificially ruptured Comment:: I ruptured her membranes and there was no fluid. Fetus: Monitoring?: Yes monitoring type:: External Assessment: Labor progressing?: Yes Cephalopelvic disproportion?: No Plan: Anesthesia for epidural?: No Continue to labor down?: Yes Plan for ?: No Continue to monitor?: Yes Start pushing?: No Comment:: She has oligohydramnios at 37 weeks and 2 days. I ruptured her membranes. She is starting oxytocin. We will expect a vaginal delivery.
--- NOTE | 2023-03-15 07:05 | EXP.HP ---
History of Present Illness *Admission Date: 03/15/23 *Reason for visit:: Oligohydramnios *History of present illness: She is a 22-year-old 3 para 2 at 37 weeks and 2 days gestational age. She had an ultrasound last week that showed low fluid. The ultrasound yesterday showed the fluid had decreased even more to an amniotic fluid index of 4.99. As result of that we have elected to deliver her at term. [facility] Disclaimer: The information contained in this section may have been updated after the patient was seen, as this information can be updated by other users. 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 Oligohydramnios Rubella non-immune status, antepartum Surgical History No history of previous surgery Family History No significant family history Social History Smoking Status: Never smoker alcohol intake: never substance use type: denies use current occupational status: unemployed Travel in the last 8 weeks: None household members: children housing: apartment caffeine: Yes Review of Systems Review of Systems Review of systems:: pertinent systems reviewed and negative unless documented below Meds Home Medications and Allergies Home Medications Medication Instructions Recorded Confirmed Type prenat.vits,mikhail,[id number] 1 tab PO DAILY Supplement #30 tabs 08/25/22 03/14/23 Rx ferrous sulfate 325 mg (65 mg 325 mg PO DAILY #30 tabs 11/16/22 03/14/23 Rx iron) tablet,delayed release New Prescriptions to Start Prescriptions: Allergies Allergy/AdvReac Type Severity Reaction Status Date / Time amoxicillin Allergy Mild Verified 03/14/23 13:51 Penicillins Allergy Mild hives Verified 03/14/23 13:51 Exam Data for Last 24 hours Vital signs and Labs for Last 24 Hours: Laboratory Results - last 24 hr 03/15/23 06:13: WBC 9.4, RBC 3.92 L, Hgb 11.3 L, Hct 34.2 L, MCV 87.3, MCH 28.9, MCHC 33.1, RDW 13.3, Plt Count 269, MPV 7.8, Neut % (Auto) 62.1, Lymph % (Auto) 31.9, [place] % (Auto) 4.5, Eos % (Auto) 1.1, Baso % (Auto) 0.5, Neut # (Auto) 5.8, Lymph # (Auto) 3.0, [place] # (Auto) 0.4, Eos # (Auto) 0.1, Baso # (Auto) 0.1 03/15/23 06:13: Urine Color Yellow, Urine Appearance Sl cloudy, Urine pH 6.0, Ur Specific [place] >= 1.030, Urine Protein Negative, Urine Glucose (UA) Negative, Urine Ketones Negative, Urine Blood Negative, Urine Nitrate Negative, Urine Bilirubin Negative, Urine Urobilinogen 1.0, Ur Leukocyte Esterase Negative, Urine RBC None, Urine WBC Occasional, Ur Squamous Epith Cells 5-10, Urine Bacteria 3+ 03/15/23 06:13: SARS-CoV-2 (PCR) Not detected, Influenza A Untype (PCR) Not detected, Influenza Type B (PCR) Not detected 03/15/23 06:13: Urine Opiates Screen Negative, Urine Methadone Screen Negative, Ur Barbituates Screen Negative, Ur Phencyclidine Scrn Negative, Ur Amphetamines Screen Negative, U Benzodiazepines Scrn Negative, Urine Cocaine Screen Negative, U Marijuana (THC) Screen Negative I & O for Last 24 hours: Intake & Output 03/12/23 03/13/23 03/14/23 03/15/23 11:59 11:59 11:59 11:59 Weight 230 lb Constitutional Constitutional: no acute distress *Routine HEENT Exam Head: Present normocephalic Eye: Present EOMI and PERRL ENT: Present mucous membranes moist *Routine Neck Exam Neck: Present supple; Absent lymphadenopathy *Routine Respiratory Exam Respiratory: Present CTA bilaterally *Routine Cardiovascular Exam Cardiovascular: Present RRR *Routine Abdominal Exam Abdominal: Present soft and normoactive bowel sounds; Absent tenderness *Routine Rectal Exam Rectal:: deferred *Routine Genitalia Exam Genitalia:: deferred *Routine Extremities Exam Extremities: Absent cyanosis, clubbing or edema *Routine Skin Exam Skin: Present warm; Absent rash *Routine Neurological Exam Neurological: Present
--- NOTE | 2023-03-15 07:55 | HMH.PHAINT1 ---
Pharmacy Intervention Comments: MEDICATION RECONCILIATION COMPLETED ON PATIENT USING EXTERNAL FILL HISTORY FROM PHARMACY. -GENO STONE, CRISSYD
--- NOTE | 2023-03-15 08:46 | EXP.LABOR.NO ---
Labor Note Subjective: Date: 03/15/23 Time: 08:47 regular contraction Objective: NST:: Reactive Contractions:: every 4-5 minutes Cervical Dilation:: 2-3 Effacement:: 75% Station: -2 Membranes: ruptured Fetus: Monitoring?: Yes monitoring type:: Internal and External Comment:: I inserted an IUPC and we will also start an amnioinfusion. Assessment: Labor progressing?: Yes Cephalopelvic disproportion?: No Plan: Anesthesia for epidural?: No Continue to labor down?: Yes Plan for ?: No Continue to monitor?: Yes Start pushing?: No Comment:: Her cervix has thinned out somewhat. We have inserted an IUPC. We will also do an amnioinfusion. She is doing well. The nonstress test is reactive. I suspect that the amnioinfusion may help with the contractions. We will also be able to pick them up a little better with the IUPC.
--- NOTE | 2023-03-15 12:09 | EXP.LABOR.NO ---
Labor Note Subjective: Date: 03/15/23 Time: 12:09 regular contraction Objective: NST:: Reactive Contractions:: every 2-3 minutes Cervical Dilation:: 4-5 Effacement:: 75% Station: -2 Membranes: ruptured Fetus: Monitoring?: Yes monitoring type:: Internal and External Assessment: Labor progressing?: Yes Cephalopelvic disproportion?: No Plan: Anesthesia for epidural?: No Continue to labor down?: Yes Plan for ?: No Continue to monitor?: Yes Start pushing?: No Comment:: She continues to do well. The contractions are every 2 to 3 minutes. There has been no change in her cervix. We will expect a vaginal delivery.
--- NOTE | 2023-03-15 14:50 | EXP.DN ---
Delivery Note Delivery Date:: 03/15/23 Delivery Time:: 14:32 Anesthesia Type: Epidural Was labor medically induced?: Yes Induction method: per pitocin protocol Infant delivered prior to 39 weeks?: Yes Justification for early elective delivery:: Oligohydraminos Infant Gender: Female at 1 minute: 8 at 5 minutes: 9 Delivery Procedure:: She is a 22-year-old 3 para 2 at 37+ with oligohydramnios. As result of that we elected to induce her labor. She was started on IV oxytocin had her membranes ruptured. Under labor epidural she progressed to full dilation and delivered spontaneously a liveborn female child at 2:32 PM in the afternoon of March 15, 2023. On delivery the head the anterior shoulder then easily delivered followed by the rest the 's body atraumatically. The baby was vigorous and cried. The oropharynx and nasopharynx were bulb suction. We allowed the cord to continue to pulsate for approximately 1 minute. The cord was then doubly clamped and cut and the infant was placed on the mother's abdomen for further care. The nurses assigned Apgars of 8 at 1 minute and 9 at 5 minutes. We then obtained cord blood. She received IV oxytocin and using gentle traction on the cord and countertraction on the fundus I was able to easily deliver the placenta intact. It had a normal three-vessel cord. There were no perineal or vaginal lacerations. She has Rh- blood. Estimated blood loss was approximately 250 cc. Placental Delivery Description: Spontaneous
[2023-03-15 17:20] VITALS: BP 121/66; PULSE 93; RESP 20; TEMP 36.8; O2SAT 99
[2023-03-15 19:45] VITALS: BP 112/55; PULSE 102; RESP 18; TEMP 37.4
[2023-03-15 21:40] VITALS: TEMP 36.9
[2023-03-16 06:51] LABS: Hematocrit 32.6 % (37.0-47.0); Hemoglobin 10.9 g/dL (12.2-16.2)
[2023-03-16 08:00] VITALS: BP 96/51; PULSE 83; RESP 16; TEMP 36.7; O2SAT 98
[2023-03-16 16:22] VITALS: BP 110/69; PULSE 68; RESP 14; TEMP 36.8; O2SAT 96
[2023-03-16 21:07] VITALS: BP 116/73; PULSE 71; RESP 16; TEMP 36.8; O2SAT 98
--- NOTE | 2023-03-17 08:41 | EXP.DC.SUM ---
General Admission date:: 03/15/23 Discharge date: 03/17/23 HPI HPI HPI: She is a 22-year-old 3 para 2 at 37 weeks and 2 days gestational age. She had an ultrasound last week that showed low fluid. The ultrasound yesterday showed the fluid had decreased even more to an amniotic fluid index of 4.99. As result of that we have elected to deliver her at term. Hospital Course Hospital Course Hospital Course: She was admitted and started on IV oxytocin. She had her membranes ruptured and under labor epidural progressed to full dilation. She delivered spontaneously a liveborn female child at 2:32 PM in the afternoon of March 15, 2023. The baby weighed 6 pounds 14 ounces and was 18-1/2 inches long. She had Apgars of 8 at 1 minute and 9 at 5 minutes. She has done well and has remained afebrile with her hospitalization. She is breast-feeding and bottlefeeding. Her lochia is normal. She has O Rh- blood and she has received RhoGAM. The baby was Rh+. She was rubella nonimmune and will receive MMR. Her group B streptococcus was negative. She is discharged home to follow-up with me in approximately 2 weeks time. She will continue with her vitamins and iron. She is given the usual instructions with respect to limiting her activity, driving and sexual activity. Her condition on discharge is stable and improved. Exam Data for Last 24 hours Vital signs and Labs for Last 24 Hours: Temp Pulse Resp BP Pulse Ox 98.3 F 71 16 116/73 98 03/16/23 21:07 03/16/23 21:07 03/16/23 21:07 03/16/23 21:07 03/16/23 21:07 Laboratory Results - last 24 hr 03/16/23 06:05: Screen Negative, Baby's Rh Status Positive, Rhogam Infusion Rhogam release I & O for Last 24 hours: Intake & Output 03/14/23 03/15/23 03/16/23 03/17/23 11:59 11:59 11:59 11:59 Weight 230 lb Microbiology Reports for the Last 24 Hours: Microbiology 03/15/23 06:13 Urine,Clean Catch Urine Culture - Final NO GROWTH AFTER 48 HOURS Constitutional Constitutional: no acute distress *Routine HEENT Exam Head: Present normocephalic *Routine Neck Exam Neck: Present supple *Routine Respiratory Exam Respiratory: Present normal respiratory effort Results Data Completed and Pending Labs on day of discharge: Labs from last 24 hours 03/16/23 06:05 Screen Negative Baby's Rh Status Positive Rhogam Infusion Rhogam release DS: Diagnosis Discharge Diagnosis (1) Oligohydramnios in alfonso in third trimester: Status: Acute Code(s): O41.03X0 - Oligohydramnios, third trimester, not applicable or unspecified (2) Rh negative status during : Status: Acute Code(s): O26.899 - Other specified related conditions, unspecified trimester; Z67.91 - Unspecified blood type, Rh negative (3) Rubella non-immune status, antepartum: Status: Acute Code(s): O09.899 - Supervision of other high risk pregnancies, unspecified trimester; Z28.39 - Other underimmunization status (4) Normal delivery: Status: Acute Code(s): O80 - Encounter for full-term uncomplicated delivery Meds Home Medications and Allergies Home Medications Medication Instructions Recorded Confirmed Type ferrous sulfate 325 mg (65 mg 325 mg PO DAILY Supplement 03/15/23 03/15/23 History iron) tablet,delayed release vitamin with calcium 1 tab PO DAILY Supplement 03/15/23 03/15/23 History no.72-iron 27 mg-folic acid 1 mg tablet (WesTab Plus) New Prescriptions to Start Prescriptions: Allergies Allergy/AdvReac Type Severity Reaction Status Date / Time amoxicillin Allergy Mild Verified 03/14/23 13:51 Penicillins Allergy Mild hives Verified 03/14/23 13:51 Discharge Plan Disposition Patient Disposition: Home, Self-Care Discharge Order Discharge Orders: Discharge Order (Routine); Ordered 03/17/23 Ord
== END 2023-03-17 12:25 | disposition home or self-care (01) | DRG 806 ==
PROVIDERS: Admitting Provider Nurse Practitioner Obstetrics & Gynecology; PCP Family Medicine; Visit Provider Nurse Practitioner Obstetrics & Gynecology
DX: O41.03X0 Oligohydramnios, third trimester, not applicable or unspecified (principal); O36.0930 Maternal care for other rhesus isoimmunization, third trimester, not applicable or unspecified; Z37.0 Single live birth; Z3A.37 37 weeks gestation of pregnancy
CPT/HCPCS: 59409; 36415; 59025; 76815; 80305; 81001; 85014; 85018; 85025; 85461; 86850; 87086; 87636; C1758; C9803; J2790; U0003; U0005

== ENCOUNTER 2023-05-31 19:54 | Emergency (ER) | payer OTHER, SELFPAY ==
[2023-05-31 19:56] VITALS: BP 105/76; PULSE 109; RESP 16; TEMP 37.8; O2SAT 99; BMI 31.1
[2023-05-31 20:30] VITALS: BP 124/73; PULSE 104; RESP 18; O2SAT 97
--- NOTE | 2023-05-31 20:47 | HMH.EDGENADL ---
Discharge Plan Disposition Patient Disposition: Home, Self-Care Condition: Good Prescriptions Prescriptions: No Action sertraline [Zoloft] 50 mg tablet 50 mg PO DAILY Qty: 30 5RF Mirena 21 mcg/24 hours (8 yrs) 52 mg intrauterine device 1 device intrauterine Referrals Follow up/Referrals: Merlyn Gimenez MD [Primary Care Provider] - See instructions Activity Restrictions/Add. Instructions Additional Instructions/Restrictions: Please follow-up with your primary care provider. Please return to the emergency department if you develop any new or worsening symptoms or become concerned for your health. Clinical Impressions Clinical Impression: Abdominal pain, Anal or rectal pain, Fever Discharge ED Provider: Philip Wong General Adult HPI <Philip Wong MD - Last Filed: 05/31/23 23:40> General Chief complaint: Fever Stated complaint: fever, rectal pain Time Seen by Provider: 05/31/23 19:59 Mode of Arrival: Ambulatory Source of Information: Patient Limitations: No Limitations Description of Symptoms (Recalled from ER Triage Doc. by RN): pt c/o fever and rectal pain that started @ 6:30 tonight. pt denies any bleeding from rectum. pt states took 2 tylenol a hour prior to arrival History of Present Illness HPI narrative: Is a 22-year-old female with no relevant medical history presenting with fever and rectal pain. Patient states that about 2 hours prior to arrival, she woke up from a nap, had pain in her rectum and felt febrile. Did not take her temperature, but had mild diaphoresis and felt warm to the touch, so took 2 extra strength Tylenol. She is having cramping abdominal pain with the urge to have a bowel movement or produce flatulence, but with bowel movement and flatulence, patient having significant pain which is 8-10 out of 10 and stabbing in her rectum. No blood per rectum. No mucus per rectum. Patient denies vomiting, dysuria, hematuria, chance of , abdominal surgical history, foreign body, history of STD/STI, or any other concerns. Related Data Home Medications Medication Instructions Recorded Confirmed levonorgestrel 21 mcg/24 hours (8 1 device intrauterine 05/12/23 05/12/23 yrs) 52 mg intrauterine device (Mirena) Previous Rx's Medication Instructions Recorded sertraline 50 mg tablet (Zoloft) 50 mg PO DAILY #30 tabs 04/19/23 Allergies Allergy/AdvReac Type Severity Reaction Status Date / Time amoxicillin Allergy Mild Verified 05/12/23 11:13 Penicillins Allergy Mild hives Verified 05/12/23 11:13 PFS <Philip Wong MD - Last Filed: 05/31/23 23:40> [facility] Disclaimer: The information contained in this section may have been updated after the patient was seen, as this information can be updated by other users. 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 Abnormal electrocardiogram [ECG] [EKG] Breech presentation Choroid plexus cyst Coronavirus infection Dysuria Gastroenteritis Left flank pain Low grade fever Oligohydramnios Rubella non-immune status, antepartum Sinus tachycardia Uterine size date discrepancy UTI (urinary tract infection) Viral syndrome Viral upper respiratory illness Surgical History No history of previous surgery Family History Other No significant family history Social History Smoking Status: Current every day smoker tobacco type: e-cigarettes alcohol intake: never substance use type: denies use current occupational status: unemployed Travel in the last 8 weeks: None household members: children housing: apartment caffeine: Yes do you feel safe at home: Yes victim of physical abuse: No victim of emotional abuse: No victim of sexual abuse: No <Philip Wong MD - Last Filed: 05/31/23 23:40> ROS Obtained: Y
[2023-05-31 21:00] VITALS: BP 107/69; PULSE 106; RESP 20; O2SAT 99
[2023-05-31 21:22] LABS: Chloride 105 mmol/L (98-107)
[2023-05-31 21:23] LABS: Potassium 3.9 mmoL/L (3.5-5.1); Sodium 138 mmol/L (136-145)
[2023-05-31 21:25] LABS: Alanine Aminotransferase 27 U/L (12-78); Alkaline Phosphatase 87 U/L (38-126); Aspartate Amino Transferase 28 U/L (14-36); Bilirubin,Total 0.6 mg/dl (0.2-1.3); Blood Urea Nitrogen 13 mg/dl (7-17); Creatinine Clearance Estimated 147 mL/min (50-200); Estimated Glomerular Filt Rate 78 ml/min (>60); GFR (African American) 94 ML/MIN (>60)
[2023-05-31 21:26] LABS: Albumin Level 4.1 g/dl (3.5-5.0); Albumin/Globulin Ratio 1.6 (1.1-1.8); Anion Gap 10.9 mEq/L (5-15); Carbon Dioxide 26 mmol/L (22.0-30.0); Globulin 2.6 g/dL (1.3-3.2); Glucose 92 mg/dl (74-100); Lactic Acid 0.8 mmol/L (0.7-2.1); Total Protein,Serum 6.7 g/dl (6.3-8.2)
[2023-05-31 21:30] VITALS: BP 105/71; PULSE 110; RESP 18; O2SAT 100
[2023-05-31 21:31] LABS: Basophils % 0.5 % (0.1-2.0); C-Reactive Protein 5.3 mg/L (0-4); Eosinophils % 0.5 % (0.1-12.0); Hematocrit 38.9 % (37.0-47.0); Hemoglobin 13.1 g/dL (12.2-16.2); Lymphocytes # 1.2 K/mm3 (0.7-4.5); Lymphocytes % 17.5 % (10-50); Mean Corpuscular HGB Conc 33.7 g/dL (31.8-35.4); Mean Corpuscular Volume 83.1 fl (81-99); Mean Platelet Volume 7.8 fl (7.4-10.4); Monocytes # 0.3 K/mm3 (0.1-1.0); Monocytes % 4.3 % (1.7-9.3); Neutrophils # 5.3 K/mm3 (1.8-7.8); Neutrophils % 77.2 % (37.0-80.0); Platelet Count 233 K/mm3 (142-424); Red Blood Count 4.68 M/mm3 (4.20-5.40); Red Cell Distribution Width 13.4 % (11.5-17.5); White Blood Count 6.9 K/mm3 (4.8-10.8)
[2023-05-31 21:34] LABS: Lipase 75 U/L (23-300)
[2023-05-31 22:00] VITALS: BP 122/70; PULSE 104; RESP 18; O2SAT 100
[2023-05-31 22:03] LABS: Microscopic, Urine URINE MICROSCOPIC (MICROSCOPIC)
[2023-05-31 22:06] LABS: Appearance,Urine CLEAR (Clear); Bilirubin,Urine Negative (Negative); Blood, Urine Negative (Negative); Color,Urine YELLOW (Yellow); Glucose,Urine (UA) Negative (Negative); Ketones,Urine Negative (Negative); Leukocyte Esterase,Urine Negative (Negative); Nitrate,Urine Negative (Negative); PH,Urine 6.5 (5.0-8.5); Protein,Urine Negative (Negative); Specific Gravity, Urine 1.015 (1.005-1.030); Urobilinogen,Urine 0.2 EU/dl (0.2)
[2023-05-31 22:16] LABS: Urine Pregnancy, HCG Qual. Negative (Negative)
[2023-05-31 22:28] LABS: Squamous Epithelial Cell,Urine Occasional #/hpf (0-5)
[2023-05-31 22:46] LABS: Erythrocyte Sedimentation Rate 15 mm/hr (0-20)
--- NOTE | 2023-05-31 23:20 | CT_ITS ---
PROCEDURE INFORMATION: Exam: CT Abdomen And Pelvis With Contrast Exam date and time: 05/31/2023 11:51 PM Age: 22 years old Clinical indication: Fever; Abdominal pain; Other: Perirectal; Additional info: Perirectal pain, fever TECHNIQUE: Imaging protocol: Computed tomography of the abdomen and pelvis with contrast. Radiation optimization: All CT scans at this facility use at least one of these dose optimization techniques: automated exposure control; mA and/or kV adjustment per patient size (includes targeted exams where dose is matched to clinical indication); or iterative reconstruction. Contrast material: ISOVUE; Contrast volume: 75 ml; Contrast route: IV; REPORTING DATA: Count of CT and Cardiac NM exams in prior 12 months: This patient has received 0 known CTs and 0 known cardiac nuclear medicine studies in the 12 months prior to the current study. COMPARISON: CR XR KUB 01/19/2022 2:32 PM FINDINGS: Tubes, catheters and devices: There is an intrauterine device in place. Liver: Normal. No mass. Gallbladder and bile ducts: Normal. No calcified stones. No ductal dilation. Pancreas: Normal. No ductal dilation. Spleen: Normal. No splenomegaly. Adrenal glands: Normal. No mass. Kidneys and ureters: Normal. No hydronephrosis. Stomach and bowel: Unremarkable. No obstruction. No mucosal thickening. Appendix: No evidence of appendicitis. Intraperitoneal space: Unremarkable. No free air. No significant fluid collection. Vasculature: Unremarkable. No abdominal aortic aneurysm. Lymph nodes: Mildly prominent right lower quadrant lymph nodes which could reflect mesenteric lymphadenitis, normal-appearing appendix. Urinary bladder: Unremarkable as visualized. Reproductive: Unremarkable as visualized. Bones/joints: Unremarkable. No acute fracture. Soft tissues: There is a small fat containing umbilical hernia. IMPRESSION: 1. No acute pathology is identified in the abdomen or pelvis. 2. No evidence for perirectal abscess. 3. Mildly prominent right lower quadrant lymph nodes which could reflect mesenteric lymphadenitis, normal-appearing appendix.
[2023-06-01 01:32] VITALS: BP 109/77; PULSE 94; RESP 16; TEMP 37.1; O2SAT 99
== END 2023-06-01 01:34 | disposition home or self-care (01) ==
PROVIDERS: Emergency Provider Emergency Medicine; PCP Family Medicine
DX: R50.9 Fever, unspecified (principal); K62.89 Other specified diseases of anus and rectum; F17.290 Nicotine dependence, other tobacco product, uncomplicated; R00.0 Tachycardia, unspecified
CPT/HCPCS: 74177; 80053; 81001; 81025; 83605; 83690; 85025; 85651; 86140; 87040; 96361; 96374; 96375; 99285; Q9967

== ENCOUNTER 2023-06-02 13:05 | Emergency (ER) | payer OTHER, SELFPAY ==
[2023-06-02 13:25] VITALS: BP 123/84; PULSE 124; RESP 18; TEMP 38.2; O2SAT 100; BMI 32.6
--- NOTE | 2023-06-02 13:42 | EXP.UTC ---
Discharge Plan Disposition Patient Disposition: Home, Self-Care Condition: Good Prescriptions Prescriptions: New azithromycin [Zithromax Z-Alphonso] 250 mg tablet See Rx Instructions .ROUTE .COMPLEX 5 Days Qty: 6 0RF Rx Instructions: For 250 mg dose pack: take 500 mg today (day 1), then 250 mg for 4 days (days 2-5) No Action sertraline [Zoloft] 50 mg tablet 50 mg PO DAILY Qty: 30 5RF Mirena 21 mcg/24 hours (8 yrs) 52 mg intrauterine device 1 device intrauterine Referrals Follow up/Referrals: Merlyn Gimenez MD [Primary Care Provider] - See instructions Activity Restrictions/Add. Instructions Additional Instructions/Restrictions: *Monitor Temp, Over the counter Motrin or Tylenol as directed/as needed Tylenol every 4 hours and Motrin every 6 hours (as long as your family doctor has told you that you can take it) for fever or pain. and straight to ER if unable to lower temp less than 101.0 after medication given *Warm salt water gargles may help to soothe the throat *Throat Lozenges? *Warm fluids like tea with honey may help to soothe the throat? *Sleep elevated *Humidifier/Vaporizer *If you did not take Penicillin shot or was unable to, start taking antibiotic immediately and make sure that you take it for the FULL length of time although you should start to feel better in 24-48 hours *change toothbrush and toothpaste 24-48 hours after starting to take antibiotics so you do not reinfect yourself Monitor Temp. Tylenol and/or Ibuprofen as needed. ER if fever is no less than 101 despite alternating Tylenol and Ibuprofen * Encourage fluids, water, Gatorade, powerade, pedialyte if /toddler/or child *Cold fluids, popsicles and ice cream may feel good on his throat Follow up IMMEDIATELY for new or worsening symptoms or no Noticeable improvement over the next 48-72 hours. 911 for difficulty breathing or swallowing You were tested for today for Upper Respiratory Panel with COVID19 your test result should be back in the next 24-48 hours you may check your results on the [facility] Clinical Impressions Clinical Impression: Strep throat Instructions Patient Instructions: Strep Throat, DI for Strep Throat Discharge ED Provider: Erika Prater [facility] [place] HPI General Stated complaint: fever Mode of Arrival: Ambulatory Source of Information: Patient Limitations: No Limitations Time Seen by Provider: 06/02/23 13:42 Description of Symptoms (Recalled from Triage Doc. by RN): PATIENT C/O FEVER AND SORE THROAT X 3 DAYS HEENT Symptoms (Recalled from RN notes): Yes Resp Symptoms (Recalled from RN notes): No Skin Symptoms (Recalled from RN notes): No MS Symptoms (Recalled from RN notes): No Functional Status (Recalled from RN notes): WNL History of Present Illness Provider Complaint: Patient states that she has been having fever, sore throat and feeling achy for about 3 days States that she was seen in the ED a few nights ago for stomach pain States that she isnt having any stomach pain now but still having fever and sore throat and son is having similar symptoms so she came in to get checked Related Data Home Medications Medication Instructions Recorded Confirmed levonorgestrel 21 mcg/24 hours (8 1 device intrauterine 05/12/23 05/12/23 yrs) 52 mg intrauterine device (Mirena) Previous Rx's Medication Instructions Recorded sertraline 50 mg tablet (Zoloft) 50 mg PO DAILY #30 tabs 04/19/23 azithromycin 250 mg tablet See Rx Instructions PO .COMPLEX 5 06/02/23 (Zithromax Z-Alphonso) days #6 tabs Allergies Allergy/AdvReac Type Severity Reaction Status Date / Time amoxicillin Allergy Mild Verified 05/12/23 11:13 Penicillins Allergy Mild hives Verified 05/12/23 11:13 Worker's Comp Is this a Worker's Comp case?: No [facility] Disclaimer: The information contained in this section may have been updated after the patient was seen, as t
[2023-06-02 14:15] VITALS: BP 123/84; PULSE 124; RESP 18; TEMP 38.2; O2SAT 100
[2023-06-02 14:27] LABS: UTC Influenza A Antigen Negative (Negative)
[2023-06-02 14:28] LABS: UTC Influenza B Antigen Negative (Negative)
[2023-06-02 14:49] LABS: UTC Strep Screen (Rapid) Positive (Negative)
== END 2023-06-02 14:17 | disposition home or self-care (01) ==
PROVIDERS: Emergency Provider Nurse Practitioner; PCP Family Medicine
DX: J02.0 Streptococcal pharyngitis (principal); R50.9 Fever, unspecified; F17.290 Nicotine dependence, other tobacco product, uncomplicated
CPT/HCPCS: 87804; 87880; 99212; 99214; G0463

== ENCOUNTER 2023-09-10 11:00 | Emergency (ER) | payer OTHER, SELFPAY ==
[2023-09-10 12:10] VITALS: BP 161/74; PULSE 109; RESP 18; TEMP 36.9; O2SAT 98; BMI 36.4
--- NOTE | 2023-09-10 12:55 | EXP.UTC ---
Discharge Plan Disposition Patient Disposition: Home, Self-Care Condition: Good Prescriptions Prescriptions: New ondansetron 4 mg tablet,disintegrating 4 mg PO Q8H PRN (Reason: nausea and vomiting) 3 Days Qty: 9 0RF No Action Mirena 21 mcg/24 hours (8 yrs) 52 mg intrauterine device 1 device intrauterine ONCE sertraline [Zoloft] 50 mg tablet 100 mg PO DAILY Qty: 60 5RF escitalopram oxalate [Lexapro] 10 mg tablet 10 mg PO DAILY Qty: 30 5RF Referrals Follow up/Referrals: Merlyn Gimenez MD [Primary Care Provider] - See instructions Activity Restrictions/Add. Instructions Additional Instructions/Restrictions: Monitor temperature. Seek treatment if fever develops. Follow-up immediately if new or worse symptoms worsen or no noticeable improvement over 48 hours. Increase fluids such as water, Gatorade, Powerade, juice or Pedialyte with limited formula/dietary in children No food is okay as long as you are drinking. Once ready to eat start bland such as bananas, rice, applesauce, toast. Contagious until no diarrhea, vomiting, fever times 48 hours without medication Avoid antidiarrheals unless told otherwise. Best to let the virus run its course. Follow-up immediately for new or worsening symptoms or no noticeable improvement over the next 48 hours. Clinical Impressions Clinical Impression: Nausea and vomiting Qualifiers: Vomiting type: unspecified Qualified Code(s): R11.2 - Nausea with vomiting, unspecified Diarrhea Qualifiers: Diarrhea type: unspecified type Qualified Code(s): R19.7 - Diarrhea, unspecified Instructions Patient Instructions: Nausea and Vomiting-Adult, Diarrhea Discharge ED Provider: Florence ([facility])Fallon [facility] [place] HPI General Stated complaint: vomiting,diarrhea Mode of Arrival: Ambulatory Source of Information: Patient Limitations: No Limitations Time Seen by Provider: 09/10/23 12:55 Description of Symptoms (Recalled from Triage Doc. by RN): vomiting and diarrhea HEENT Symptoms (Recalled from RN notes): No Resp Symptoms (Recalled from RN notes): No Skin Symptoms (Recalled from RN notes): No MS Symptoms (Recalled from RN notes): No Functional Status (Recalled from RN notes): n/a History of Present Illness Provider Complaint: 22 yr old female presents for nausea, vomiting and diarrhea Related Data Home Medications Medication Instructions Recorded Confirmed levonorgestrel 21 mcg/24 hours (8 1 device intrauterine ONCE 05/12/23 09/10/23 yrs) 52 mg intrauterine device (Mirena) Previous Rx's Medication Instructions Recorded sertraline 50 mg tablet (Zoloft) 100 mg PO DAILY #60 tabs 07/07/23 escitalopram oxalate 10 mg tablet 10 mg PO DAILY #30 tabs 08/02/23 (Lexapro) ondansetron 4 mg disintegrating 4 mg PO Q8H PRN nausea and 09/10/23 tablet vomiting 3 days #9 tabs Allergies Allergy/AdvReac Type Severity Reaction Status Date / Time amoxicillin Allergy Mild Verified 09/10/23 12:31 Penicillins Allergy Mild hives Verified 09/10/23 12:31 Worker's Comp Is this a Worker's Comp case?: No [facility] Disclaimer: The information contained in this section may have been updated after the patient was seen, as this information can be updated by other users. 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
[2023-09-10 13:11] VITALS: BP 161/74; PULSE 109; RESP 18; TEMP 36.9; O2SAT 98
== END 2023-09-10 13:11 | disposition home or self-care (01) ==
PROVIDERS: Emergency Provider Nurse Practitioner Family; PCP Family Medicine
DX: R11.2 Nausea with vomiting, unspecified; R19.7 Diarrhea, unspecified; F17.290 Nicotine dependence, other tobacco product, uncomplicated
CPT/HCPCS: 99212; 99214; G0463

== ENCOUNTER 2024-01-19 11:31 | Outpatient (CLI) | payer OTHER, SELFPAY ==
[2024-01-19 12:06] LABS: Basophils # 0.1 K/mm3 (0-0.2); Basophils % 0.8 % (0.1-2.0); Eosinophils # 0.1 K/mm3 (0.0-0.4); Eosinophils % 1.6 % (0.1-12.0); Hematocrit 42.2 % (37.0-47.0); Hemoglobin 14.4 g/dL (12.2-16.2); Lymphocytes # 1.1 K/mm3 (0.7-4.5); Lymphocytes % 13.3 % (10-50); Mean Corpuscular HGB Conc 34.1 g/dL (31.8-35.4); Mean Corpuscular Hemoglobin 30.9 pg (27.0-31.2); Mean Corpuscular Volume 90.7 fl (81-99); Monocytes # 0.2 K/mm3 (0.1-1.0); Neutrophils # 6.6 K/mm3 (1.8-7.8); Neutrophils % 81.3 % (37.0-80.0); Platelet Count 193 K/mm3 (142-424); Red Blood Count 4.66 M/mm3 (4.20-5.40); Red Cell Distribution Width 12.6 % (11.5-17.5); White Blood Count 8.1 K/mm3 (4.8-10.8)
[2024-01-19 12:46] LABS: Alanine Aminotransferase 27 U/L (12-78); Albumin Level 4.5 g/dl (3.5-5.0); Albumin/Globulin Ratio 2.1 (1.1-1.8); Alkaline Phosphatase 76 U/L (38-126); Anion Gap 14.1 mEq/L (5-15); Aspartate Amino Transferase 27 U/L (14-36); Bilirubin,Total 0.7 mg/dl (0.2-1.3); Blood Urea Nitrogen 8 mg/dl (7-17); Calcium 9.5 mg/dl (8.4-10.2); Carbon Dioxide 22 mmol/L (22.0-30.0); Chloride 108 mmol/L (98-107); Estimated Glomerular Filt Rate 88 ml/min (>60); GFR (African American) 107 ML/MIN (>60); Globulin 2.1 g/dL (1.3-3.2); Glucose 137 mg/dl (74-100); Potassium 4.1 mmoL/L (3.5-5.1); Sodium 140 mmol/L (136-145); Total Protein,Serum 6.6 g/dl (6.3-8.2)
[2024-01-19 13:03] LABS: HCG,Quantitative < 2 mIU/ml (0-5.42)
== END 2024-01-19 23:59 | disposition home or self-care (01) ==
LOC: LAB 11:31
PROVIDERS: PCP Family Medicine; Visit Provider Nurse Practitioner Obstetrics & Gynecology
DX: Z32.00 Encounter for pregnancy test, result unknown (principal); Z30.09 Encounter for other general counseling and advice on contraception
CPT/HCPCS: 36415; 80053; 84702; 85025

== ENCOUNTER 2024-01-26 07:45 | Day surgery (SDC) | payer OTHER, SELFPAY ==
[2024-01-24 12:06] VITALS: BMI 37.0
[2024-01-26] VITALS (12 sets, daily range): BP systolic 105–139; BP diastolic 62–85; PULSE 70–127; RESP 17–18; TEMP 36.1–36.6; O2SAT 96–100
[2024-01-26] MEDS: LACTATED RINGERS 1000ML 1,000 ML 25 ML IV (07:55)
[2024-01-26] MEDS: CLINDAMYCIN PHOSPHATE/D5W 900 MG/50 ML PIGGYBACK 106 MG IV (08:30)
[2024-01-26] MEDS: ROPIVACAINE 0.5% 30ML VIAL 300 MG (08:59)
--- NOTE | 2024-01-26 09:19 | P.OP_ITS ---
Date of procedure: 01/26/24 Pre-op Diagnosis:: Desire for sterilization Post-op Diagnosis:: Desire for sterilization Procedure performed:: Laparoscopic bilateral salpingectomy and removal of Mirena IUD Surgeon:: Isaías Batres MD [facility]:: Parveen Johnson Anesthesia: GETEliseo Estimated blood loss (mL): 10 Clinical Note:: She is a 23-year-old 3 para 3 who expressed desire for sterilization. The risk and benefits of surgery as well as its irreversibility were discussed with patient prior to surgery. Operative findings:: She had a normal-appearing pelvis. The upper abdomen appeared normal. The uterus and tubes appeared normal. The ovaries both appeared normal. The deep cul-de-sac in the pelvis appeared normal. Operative note:: She was taken to the operating room where general anesthesia was found be adequate. She was prepped and draped in normal sterile fashion in the semilithotomy position. A weighted speculum was placed in the vagina and the anterior lip of the cervix was grasped with a tenaculum. I then inserted a Myrna uterine manipulator into the cervical os. The balloon was then insufflated. I changed gloves and injected 10 cc of 0.5% ropivacaine around her umbilicus and made a small incision within the umbilicus. I inserted a Veress needle into the abdominal cavity. The peritoneal cavity was then insufflated with carbon dioxide gas to a pressure of 20 mmHg. I then inserted a 5 millimeter trocar under direct vision. I injected through and through the pubic hairline, made a small incision here and inserted an 8 mm trocar under direct vision. I identified the inferior epigastric artery on the left side, went lateral to these and injected through and through. I then placed a 5 mm trocar here under direct vision. The pelvis and upper abdomen were then inspected and the findings were as previously dictated. I grasped the right tube at the cornua and using harmonic scalpel on coagulation mode I cut through the tube. I then grasped the distal tube and using harmonic scalpel cut along the mesosalpinx. The tube was removed through 8 mm trocar site. This was similarly performed on the patient's left side. I then injected 30 cc of 0.5% ropivacaine into the pelvis. After assuring hemostasis the gas was let out of the abdomen and hemostasis was once again assured. The abdomen was then reinsufflated. The secondary trochars were removed under direct vision. The gas was let out her abdomen. The primary trocar was then removed. The 8 mm trocar site was closed deeply with 2-0 Vicryl suture followed by subcuticular 4-0 Monocryl suture. The 5 mm trocar sites were closed with subcuticular 4-0 Monocryl. Sterile dressings were applied. The patient tolerated the procedure well and was taken to the recovery room in excellent condition. All sponge instrument and needle counts were correct. The estimated blood loss was less than 10 cc. Condition: stable Disposition: PACU Specimens:: Bilateral fallopian tubes Complications:: None
--- NOTE | 2024-01-26 09:36 | EXP.ANES.I ---
[facility] Anesthesia Record Part I Anesthesia Record I Intake, IV Amount: 800 Hydration: Adequate Estimated blood loss (mL): 9 Urine output (mL): 0 Blood Products used (#): none Blood Pressure: 134/65 SaO2: 100 Pulse Rate: 127 Airway Patency: Patent Respiratory Rate: 18 Temperature: 97.9 F Patient is:: Drowsy and Stable Stable to PACU at:: 09:20
[2024-01-26] MEDS: MORPHINE 2MG/ML SYRINGE 2 MG IV ×3 (09:43→10:00)
--- NOTE | 2024-01-27 10:51 | P.PNANES_ITS ---
[facility] Anesthesia Record Part II Anesthesia Record Part II Discharge Time: 10:05 Destination: Surgical Day Care (OP Surgery) PACU nurse assessment reviewed?: Yes Patient Condition:: Good Anesthesia Complications:: None Swallowing reflex intact?: Yes Airway Patency: Patent Cyanosis?: No Blood Pressure: 112/63 SaO2: 98 Respiratory Rate: 18 Pulse Rate: 81 Temperature: 97.9 F Mental Status: Alert & Oriented Pain level:: 2 Nausea and/or vomitting:: None Intake, IV Amount: 0 Hydration: Adequate
--- NOTE | 2024-01-27 10:51 | EXP.ANES.CKL ---
[facility] Disclaimer: The information contained in this section may have been updated after the patient was seen, as this information can be updated by other users. 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 Abnormal electrocardiogram [ECG] [EKG] Sinus tachycardia Choroid plexus cyst Rubella non-immune status, antepartum Uterine size date discrepancy Viral syndrome Gastroenteritis Oligohydramnios Breech presentation Coronavirus infection Low grade fever Dysuria Viral upper respiratory illness UTI (urinary tract infection) Left flank pain Surgical History No history of previous surgery Family History Other No significant family history Social History Smoking Status: Never smoker alcohol intake: never substance use type: denies use current occupational status: unemployed Travel in the last 8 weeks: None household members: children housing: apartment caffeine: Yes do you feel safe at home: Yes victim of physical abuse: No victim of emotional abuse: No victim of sexual abuse: No [facility] Anesthesia Checklist Patient Identification Patient Identification: Arm Band Structural Data Admitted From: Home Planned Operative Procedure/s: Laparoscopic Bilateral Salpingectomy Consent for Planned Operative Procedure(s) Verified: Yes Verified Documents: Surgical Consent and History and Physical NPO Status Verified Time NPO: 00:00 Additional verifications Anesthesia Reactions: No Hx Blood Transfusions: No Blood Transfusion Reaction: No Airway Assessment Mallampati Score:: Class II C-Spine Mobility Assessed: Yes TMJ Mobility Assessed: Yes Dentition: Good Dentition Neurological Assessment Level of Consciousness: Awake and Alert Anesthesia Plan Anesthesia Risk discussed: Yes Anesthesia Plan: Verified ASA Class: II Anesthesia Type: General Preoperative Comments Pre-Operative Comments: Late Entry- Preop Assessment Completed prior to surgery.
[2024-01-27 10:53] VITALS: BP 112/63; PULSE 81; RESP 18; TEMP 36.6; O2SAT 98
== END 2024-01-26 10:35 | disposition home or self-care (01) ==
PROVIDERS: PCP Family Medicine; Visit Provider Nurse Practitioner Obstetrics & Gynecology
PROC: (CPT 58661; principal; 2024-01-26 09:30)
DX: Z30.2 Encounter for sterilization (principal)
CPT/HCPCS: 58661; 96374; J3490; J2405

== ENCOUNTER 2024-04-20 13:17 | Emergency (ER) | payer OTHER, SELFPAY ==
[2024-04-20 13:18] VITALS: BP 115/83; PULSE 90; RESP 17; TEMP 36.8; O2SAT 98; BMI 36.9
[2024-04-20] MEDS: IBUPROFEN 400 MG TABLET 800 MG PO (13:36)
[2024-04-20] MEDS: ONDANSETRON 4MG ODT 4 MG SL (13:37)
[2024-04-20 13:40] LABS: Coronavirus 19, PCR Not Detected (NotDetected); Influenza A, PCR Not Detected (NotDetected); Influenza B, PCR Not Detected (NotDetected)
[2024-04-20 13:57] LABS: Strep Scrn Group A (Rapid) Negative (Negative)
--- NOTE | 2024-04-20 14:14 | ED_ITS ---
Discharge Plan Disposition Patient Disposition: Home, Self-Care Condition: Good Prescriptions Prescriptions: No Action No Known Home Medications Referrals Follow up/Referrals: Merlyn Gimenez MD [Primary Care Provider] - See instructions Activity Restrictions/Add. Instructions Additional Instructions/Restrictions: You have been evaluated in the ED for your complaints. You may follow-up with your PCP in the next 3 to 5 days. Please return to ED for any new or worsening symptoms. Please take Tylenol and ibuprofen as needed for your symptoms. Clinical Impressions Clinical Impression: Upper respiratory infection, viral, Uvulitis, Sore throat Discharge ED Provider: Mauro Mars Adult HPI General Chief complaint: Upper Respiratory Infection Stated complaint: sore throat fever headache Time Seen by Provider: 04/20/24 14:14 Mode of Arrival: Family Vehicle Source of Information: Patient Limitations: No Limitations Description of Symptoms (Recalled from ER Triage Doc. by RN): Pt c/o sore throat with swollen tonsils & uvula and headache. States symptoms began yesterday. Reports felt like I had a fever . Reports SOA with exertion d/t my throat feeling so swollen . She also reports sinus pressure and nasal congestion. Denies any cough. She also c/o nausea wo vomiting or diarrhea. 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 She also states that she feels as if her uvula is swollen. She has continued to tolerate oral intake without difficulty. Denies having any fevers, chills, chest pain or shortness of breath. She reports nausea without vomiting. No further complaints at this time. Related Data Home Medications Medication Instructions Recorded Confirmed No Known Home Medications 02/14/24 02/14/24 Allergies Allergy/AdvReac Type Severity Reaction Status Date / Time amoxicillin Allergy Mild Verified 02/14/24 11:15 Penicillins Allergy Mild hives Verified 02/14/24 11:15 [facility] Disclaimer: The information contained in this section may have been updated after the patient was seen, as this information can be updated by other users. 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 (Updated 04/20/24 @ 15:11 by Mauro Mars DO) Abnormal electrocardiogram [ECG] [EKG] Sinus tachycardia Choroid plexus cyst Gastroenteritis Left flank pain Surgical History History of bilateral salpingectomy Family History Other No significant family history Social History Smoking Status: Light tobacco smoker tobacco type: e-cigarettes alcohol intake: never substance use type: denies use current occupational status: unemployed Travel in the last 8 weeks: None household members: children housing: apartment caffeine: Yes do you feel safe at home: Yes victim of physical abuse: No victim of emotional abuse: No victim of sexual abuse: No ROS Obtained: Yes All systems reviewed & no additional complaints except as documented Physical Exam General General appearance: alert and in no apparent distress Head Head exam: atraumatic and normocephalic Eye Eye exam: Present normal appearance, PERRL and EOMI ENT ENT exam: Present normal oropharynx and mucous membranes moist Neck Neck exam: Present full ROM; Absent meningismus Respiratory Respiratory exam: Absent respiratory distress, wheezes, stridor or accessory muscle use Cardiovascular Cardiovascular exam: Present normal rhythm Abdominal Exam Abdominal exam: Present soft; Absent distention, tenderness, guarding, rebound or rigidity Neurological Exam Neurological exam: Present alert, oriented X3 and CN II-XII intact; Absent motor sensory deficit Psychiatric Psychiatric exam: Present normal affect and normal mood Skin Skin exam: Present warm and dry Medical Decision Making Medical Records Medical records reviewed: Yes I reviewed the patient's medical records. Maged Inquiry Pt receiving controlled substance: No Maged was queried for this patient: No Vital Signs: 04/20/24 13:18 Temperature 98.3 F Temperature Source Oral Pulse Rate [Right] 90 Respiratory Rate 17 Blood Pressure [Left Arm] 115/83 Blood Pressure Mean [Left Arm] 93 Blood Pressure Source [Left Arm] Automatic Cuff 02 Sat by Pulse Oximetry 98 Oxygen Delivery Method Room Air Lab Data Lab Results 04/20/24 13:26: SARS-CoV-2 (PCR) Not detected, Influenza A Untype (PCR) Not d etected, Influenza Type B (PCR) Not detected, Group A Strep Rapid Negative Orders (Tests/Meds): ED MEDICATIONS Discontinued Medications Generic Name Dose Route Start Last Admin Trade Name Freq PRN Reason Stop Dose Admin Dexamethasone 10 mg 04/20/24 14:26 04/20/24 14:44 Dexamethasone 4mg Tablet PO 04/20/24 14:27 10 mg ONCE ONE Administration Ibuprofen 600 mg 04/20/24 13:30 04/20/24 13:35 Ibuprofen 600 Mg Tablet PO 04/20/24 13:31 Not Given ONCE ONE Ibuprofen 800 mg 04/20/24 13:35 04/20/24 13:36 Ibuprofen 400 Mg Tablet PO 04/20/24 13:36 800 mg ONCE ONE Administration Ondansetron HCl 4 mg 04/20/24 13:30 04/20/24 13:37 Ondansetron 4mg Odt SL 04/20/24 13:31 4 mg ONCE ONE Administration ORDERS Category Date Time Status Rapid PCR Covid and Flu A/B Stat Lab 04/20/24 13:26 Completed Strep Scrn Group A (Rapid) Stat Lab 04/20/24 13:26 Completed Strep Screen Confirmation Stat Micro 04/20/24 13:26 Received Medical Decision Narrative: 23-year-old female with no pertinent past medical history presents today for evaluation concerning sore throat, generalized headache and bodyaches over the past couple of days. She also states that she feels as if her uvula is swollen. She has continued to tolerate oral intake without difficulty. Denies having any fevers, chills, chest pain or shortness of breath. She reports nausea without vomiting. On assessment she was hemodynamically stable and in no acute distress. Afebrile. Her chest was clear to auscultation bilaterally. Abdomen soft nondistended and nontender to palpation. Oropharynx with mild pharyngeal erythema. Uvula with mild swelling. Able to tolerate oral secretions. No cervical lymphadenopathy palpated. Otherwise exam is unremarkable differential diagnoses include but limited to COVID, influenza, other viral URI, strep pharyngitis, uvulitis, among others. Patient was given Decadron to assist with her symptoms. Patient strep screen as well as COVID/influenza swabs were negative. On reassessment she remains hemodynamically stable and in no acute distress. Remains well-appearing. Able to tolerate oral intake. Discussed ED workup and results as well as current plan to discharge with continued supportive care measures. Provided her with return ED precautions. She verbalized understanding and agreed with plan. Subsequently discharged. Critical Care Critical Care Time Critical Care Time: No
[2024-04-20] MEDS: DEXAMETHASONE 4MG TABLET 10 MG PO (14:44)
[2024-04-20 15:25] VITALS: BP 122/80; PULSE 86; RESP 16; TEMP 36.8; O2SAT 99
== END 2024-04-20 15:26 | disposition home or self-care (01) ==
PROVIDERS: Emergency Provider Emergency Medicine; PCP Family Medicine
DX: J02.9 Acute pharyngitis, unspecified (principal); R51.9 Headache, unspecified; R11.0 Nausea; J06.9 Acute upper respiratory infection, unspecified; K12.2 Cellulitis and abscess of mouth; F17.290 Nicotine dependence, other tobacco product, uncomplicated
CPT/HCPCS: 87430; 87636; 99283

== ENCOUNTER 2024-04-24 22:40 | Emergency (ER) | payer OTHER, SELFPAY ==
[2024-04-24 22:41] VITALS: BP 131/83; PULSE 93; RESP 20; TEMP 36.9; O2SAT 98; BMI 36.9
--- NOTE | 2024-04-24 22:57 | XR_ITS ---
PROCEDURE INFORMATION: Exam: XR Right Foot Exam date and time: 04/24/2024 10:53 PM Age: 23 years old Clinical indication: Pain; Heel; Right; Additional info: Heel pain TECHNIQUE: Imaging protocol: Radiologic exam of the right foot. Views: 3 or more views. Total images: 3 COMPARISON: No relevant prior studies available. FINDINGS: Bones/joints: No acute fracture or joint dislocation. No concerning bone lesions or calcifications. Unremarkable joint spaces. Tiny plantar calcaneal enthesophyte. Soft tissues: Unremarkable soft tissues. IMPRESSION: 1. Negative right foot. 2. Tiny plantar calcaneal enthesophyte.
[2024-04-24] MEDS: IBUPROFEN 400 MG TABLET 800 MG PO (23:04)
[2024-04-24] MEDS: ACETAMINOPHEN 500MG TAB 1000 MG PO (23:04)
--- NOTE | 2024-04-24 23:05 | ED_ITS ---
Discharge Plan Disposition Patient Disposition: Home, Self-Care Condition: Good Prescriptions Prescriptions: No Action No Known Home Medications Referrals Follow up/Referrals: Merlyn Gimenez MD [Primary Care Provider] - See instructions Gretchen Bruno DPM [Staff Physician] - See instructions Activity Restrictions/Add. Instructions Additional Instructions/Restrictions: You were evaluated in the emergency department today. You have a bone spur of your heel. Please wear shoes with good support when walking a lot. Follow-up closely with podiatry for further evaluation and management. Take Tylenol and ibuprofen at home as needed for pain. Clinical Impressions Clinical Impression: Heel spur Stand Alone Forms Stand Alone Forms: Work/School Release Instructions Patient Instructions: DI for Plantar Fasciitis, DI for Acute Pain -- Adult Discharge ED Provider: Kya Parks General Adult HPI General Chief complaint: PAIN Stated complaint: RT foot pain Time Seen by Provider: 04/24/24 22:54 Mode of Arrival: Ambulatory Source of Information: Patient Limitations: No Limitations Description of Symptoms (Recalled from ER Triage Doc. by RN): 23 F presents with c/o right heel pain. She reports she hurt this heel when she was 6 years old; however, today, [place] it is more tender. Patient has not taken any medications. No obvious injury to heel. CMS intact. History of Present Illness HPI narrative: This patient is a 23-year-old female who reports past medical history of right heel injury as a child presenting to the ED for evaluation with concern for atraumatic R heel pain. She reports that she is been walking around a lot more lately, especially [place] the [place], and the pain got worse. She notes it has been bothering her for a few weeks. No known falls or injuries. No numbness, tingling, or other concerns. Related Data Home Medications Medication Instructions Recorded Confirmed No Known Home Medications 02/14/24 02/14/24 Allergies Allergy/AdvReac Type Severity Reaction Status Date / Time amoxicillin Allergy Mild Verified 02/14/24 11:15 Penicillins Allergy Mild hives Verified 02/14/24 11:15 [facility] Disclaimer: The information contained in this section may have been updated after the patient was seen, as this information can be updated by other users. 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 Abnormal electrocardiogram [ECG] [EKG] Sinus tachycardia Choroid plexus cyst Gastroenteritis Left flank pain Surgical History History of bilateral salpingectomy Family History Other No significant family history Social History Smoking Status: Never smoker alcohol intake: never substance use type: denies use current occupational status: unemployed Travel in the last 8 weeks: None household members: children housing: apartment caffeine: Yes do you feel safe at home: Yes victim of physical abuse: No victim of emotional abuse: No victim of sexual abuse: No ROS Obtained: Yes All systems reviewed & no additional complaints except as documented Physical Exam General General appearance: alert and in no apparent distress Head Head exam: atraumatic and normocephalic Eye Eye exam: Present normal appearance, PERRL and EOMI ENT ENT exam: Present normal exam, normal oropharynx, mucous membranes moist and normal external ear exam Neck Neck exam: Present normal inspection, full ROM and trachea midline; Absent tenderness Chest Chest inspection: Present normal inspection and symmetric chest wall rise; Absent tenderness Respiratory Respiratory exam: Present normal lung sounds bilaterally; Absent respiratory distress, wheezes, stridor or accessory muscle use Cardiovascular Cardiovascular exam: Present regular rate and normal rhythm Abdominal Exam Abdominal exam: Present soft; Absent distention, tenderness or guarding Extremities Exam Extremities exam: Present full ROM, tenderness (Tenderness to palpation of the right heel with no overlying wounds, skin color changes, deformities, or swelling. Neurovascularly intact distally.) and normal capillary refill; Absent edema Back Exam Back exam: Present normal inspection and full ROM; Absent tenderness Neurological Exam Neurological exam: Present alert, oriented X3, CN II-XII intact and normal gait; Absent motor sensory deficit Psychiatric Psychiatric exam: Present normal affect and normal mood Skin Skin exam: Present warm and dry Medical Decision Making Medical Records Medical records reviewed: Yes I reviewed the patient's medical records. Maged Inquiry Pt receiving controlled substance: No Vital Signs: 04/24/24 22:41 04/24/24 23:49 Temperature 98.4 F 98 F Temperature Source Oral Oral Pulse Rate 89 Pulse Rate [Left] 93 H Respiratory Rate 20 20 Blood Pressure 111/65 Blood Pressure [Right Arm] 131/83 Blood Pressure Mean [Right Arm] 99 Blood Pressure Source Automatic Cuff Blood Pressure Source [Right Arm] Automatic Cuff Blood Pressure Position Sitting Blood Pressure Position [Right Arm] Sitting 02 Sat by Pulse Oximetry 98 Oxygen Delivery Method Room Air Room Air Lab Data Lab results reviewed: Yes I reviewed the patient's lab results. Orders (Tests/Meds): ED MEDICATIONS Discontinued Medications Generic Name Dose Route Start Last Admin Trade Name Brittanie PRN Reason Stop Dose Admin Acetaminophen 1,000 mg 04/24/24 22:57 04/24/24 23:04 Acetaminophen 500mg Tab PO 04/24/24 22:58 1,000 mg ONCE ONE Administration Ibuprofen 800 mg 04/24/24 22:57 04/24/24 23:04 Ibuprofen 400 Mg Tablet PO 04/24/24 22:58 800 mg ONCE ONE Administration ORDERS Category Date Time Status Foot XR right minimum 3 views [XR foot RT min 3V] Stat Exams 04/24/24 22:57 Completed Medical Decision Narrative: In summary, this patient is a 23-year-old female presenting to the Emergency Department for evaluation of right heel pain. Differential diagnoses considered include but are not limited to fracture, heel spur, plantar fasciitis, arthritis. Ruling out the most morbid conditions drove assessment. On exam, the patient is well-appearing. She has tenderness palpation of her right heel but no skin changes or other concerns. She is neurovascularly intact. Workup included XR of the right heel. She was given oral Tylenol and ibuprofen for pain. I independently interpreted x-ray prior to the radiologist read and noted heel spur but no acute fracture. Please see their read for final interpretation. At this time, I feel the patient is appropriate for discharge home with instructions for supportive management and close follow-up with podiatry as well as primary care. She was given instructions for this as well as strict return precautions. She was discharged after all questions were answered Critical Care Critical Care Time Critical Care Time: No
[2024-04-24 23:49] VITALS: BP 111/65; PULSE 89; RESP 20; TEMP 36.6; O2SAT 98
== END 2024-04-24 23:52 | disposition home or self-care (01) ==
PROVIDERS: Emergency Provider Emergency Medicine; PCP Family Medicine
DX: M77.31 Calcaneal spur, right foot (principal); M79.671 Pain in right foot
CPT/HCPCS: 73630; 99283

== ENCOUNTER 2024-05-14 13:16 | Emergency (ER) | payer OTHER, SELFPAY ==
[2024-05-14 13:17] VITALS: BP 135/85; PULSE 121; RESP 16; TEMP 37.7; O2SAT 99; BMI 36.9
--- NOTE | 2024-05-14 13:36 | PC.NURSE ---
pt triaged at this time, COVID/FLU and strep test done. MD aware of tachycardia at this time.
--- NOTE | 2024-05-14 13:45 | PC.NURSE ---
pt roomed to #12
[2024-05-14 13:52] LABS: Coronavirus 19, PCR Not Detected (NotDetected); Influenza A, PCR Not Detected (NotDetected); Influenza B, PCR Not Detected (NotDetected)
[2024-05-14 13:56] LABS: Strep Scrn Group A (Rapid) Positive (Negative)
[2024-05-14] MEDS: LACTATED RINGERS 1000ML 1,000 ML 999 ML IV (14:05)
[2024-05-14 14:06] LABS: Basophils % 0.4 % (0.1-2.0); Eosinophils % 0.2 % (0.1-12.0); Hematocrit 41.2 % (37.0-47.0); Hemoglobin 14.3 g/dL (12.2-16.2); Lymphocytes # 1.3 K/mm3 (0.7-4.5); MANUAL DIFFERENTIAL MANUAL DIFFERENTIAL (MANUAL DIFF); Mean Corpuscular HGB Conc 34.6 g/dL (31.8-35.4); Mean Corpuscular Hemoglobin 30.5 pg (27.0-31.2); Mean Corpuscular Volume 88.1 fl (81-99); Mean Platelet Volume 7.9 fl (7.4-10.4); Monocytes # 0.5 K/mm3 (0.1-1.0); Monocytes % 4.3 % (1.7-9.3); Neutrophils # 9.5 K/mm3 (1.8-7.8); Neutrophils % 84.1 % (37.0-80.0); Platelet Count 239 K/mm3 (142-424); Red Blood Count 4.67 M/mm3 (4.20-5.40); Red Cell Distribution Width 13.7 % (11.5-17.5); White Blood Count 11.4 K/mm3 (4.8-10.8)
[2024-05-14 14:10] LABS: Albumin Level 4.7 g/dl (3.5-5.0); Chloride 104 mmol/L (98-107); Potassium 3.6 mmoL/L (3.5-5.1); Sodium 139 mmol/L (136-145)
--- NOTE | 2024-05-14 14:10 | ED_ITS ---
<Statement entered by Kya Parks DO - 05/14/24 16:19> I was consulted by the [place], and we discussed the complexity of the problems being addressed. I approved the treatment and management plan for this patient's care in the emergency department, thus performing a substantive portion of the medical decision making. Kya Parks DO Discharge Plan Disposition Patient Disposition: Home, Self-Care Condition: Good Prescriptions Prescriptions: New azithromycin 500 mg tablet 500 mg PO DAILY 5 Days Qty: 5 0RF Referrals Follow up/Referrals: Merlyn Gimenez MD [Primary Care Provider] - See instructions Activity Restrictions/Add. Instructions Additional Instructions/Restrictions: Follow-up with your PCP within 48 hours for recheck. Return to ER for any worsening signs or symptoms. Clinical Impressions Clinical Impression: Strep pharyngitis Instructions Patient Instructions: DI for Strep Throat Print Language Print Language: Sri [place]ankan Discharge ED Provider: Kya Parks General Adult HPI General Chief complaint: Upper Respiratory Infection Stated complaint: sore throat, cant eat, pain in both ears Time Seen by Provider: 05/14/24 14:10 Mode of Arrival: Ambulatory Source of Information: Patient Limitations: No Limitations Description of Symptoms (Recalled from ER Triage Doc. by RN): pt to the ED with complaints of sore throat, cough, congestion and fever x 2 days. pt denies any SOB or chest pain at this time and recently took tylenol before coming to be evaluated. History of Present Illness HPI narrative: Patient presents for evaluation of sore throat bilateral ear pain and headache. Patient has a history of 2 days of fever headache ear pain and sore throat. She denies chest pain shortness of breath hemoptysis hematochezia melena vomiting or diarrhea but does endorse some nausea. Related Data Previous Rx's ?Medication ?Instructions ?Recorded azithromycin 500 mg tablet 500 mg PO DAILY 5 days #5 tabs 05/14/24 Allergies Allergy/AdvReac Type Severity Reaction Status Date / Time amoxicillin Allergy Mild Verified 02/14/24 11:15 Penicillins Allergy Mild hives Verified 02/14/24 11:15 [facility] Disclaimer: The information contained in this section may have been updated after the patient was seen, as this information can be updated by other users. 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 Abnormal electrocardiogram [ECG] [EKG] Sinus tachycardia Choroid plexus cyst Gastroenteritis Left flank pain Surgical History History of bilateral salpingectomy Family History Other No significant family history Social History Smoking Status: Current every day smoker tobacco type: e-cigarettes alcohol intake: never substance use type: denies use current occupational status: unemployed Travel in the last 8 weeks: None household members: children housing: apartment caffeine: Yes do you feel safe at home: Yes victim of physical abuse: No victim of emotional abuse: No victim of sexual abuse: No ROS Obtained: Yes Systems reviewed as appropriate & no additional complaints except as documented Physical Exam General General appearance: alert and in no apparent distress ENT ENT exam: Present mucous membranes moist, TM's normal bilaterally and other (Patient has bilateral tonsillar exudate with erythema.) Neck Neck exam: Present normal inspection, full ROM and lymphadenopathy (Patient has bilateral cervical lymphadenopathy) Chest Chest inspection: Present normal inspection and symmetric chest wall rise Respiratory Respiratory exam: Present normal lung sounds bilaterally Cardiovascular Cardiovascular exam: Present regular rate and normal rhythm Neurological Exam Neurological exam: Present alert and oriented X3 Medical Decision Making Medical Records Medical records reviewed: Yes I reviewed the patient's medical records. Maged Inquiry Pt receiving controlled substance: No Vital Signs: 05/14/24 13:17 05/14/24 14:58 Temperature 99.8 F H 98.0 F Temperature Source Oral Pulse Rate 95 H Pulse Rate [Left Radial] 121 H Respiratory Rate 16 20 Blood Pressure 130/79 Blood Pressure [Right Arm] 135/85 Blood Pressure Mean [Right Arm] 101 Blood Pressure Source [Right Arm] Automatic Cuff Blood Pressure Position [Right Arm] Standing 02 Sat by Pulse Oximetry 99 Oxygen Delivery Method Room Air Room Air Lab Data Lab results reviewed: Yes I reviewed the patient's lab results. Lab Results 05/14/24 13:30: SARS-CoV-2 (PCR) Not detected, Influenza A Untype (PCR) Not detected, Influenza Type B (PCR) Not detected, Group A Strep Rapid Positive A 05/14/24 13:57: WBC 11.4 H, RBC 4.67, Hgb 14.3, Hct 41.2, MCV 88.1, MCH 30.5, MCHC 34.6, RDW 13.7, Plt Count 239, MPV 7.9, Neut % (Auto) 84.1 H, Lymph % (Auto) 11.0, [place] % (Auto) 4.3, Eos % (Auto) 0.2, Baso % (Auto) 0.4, Neut # (Auto) 9.5 H, Lymph # (Auto) 1.3, [place] # (Auto) 0.5, Eos # (Auto) 0.0, Baso # (Auto) 0.0, Total Counted 100, Neutrophils % (Manual) 90 H, Lymphocytes % (Manual) 7 L, Monocytes % (Manual) 3, Platelet Estimate Normal, RBC Morphology Normal, Sodium 139, Potassium 3.6, Chloride 104, Carbon Dioxide 24, Anion Gap 14.6, BUN 9, Creatinine 1.00, Estimated Creat Clear 155, Estimated GFR 68, Est GFR ( Amer) 82, Glucose 95, Calcium 8.9, Total Bilirubin 1.1, AST 28, ALT 24, Alkaline Phosphatase 76, Total Protein 7.8, Albumin 4.7, Globulin 3.1, Albumin/Globulin Ratio 1.5 05/14/24 13:57 05/14/24 13:57 Orders (Tests/Meds): ED MEDICATIONS Discontinued Medications Generic Name Dose Route Start Last Admin Trade Name Brittanie PRN Reason Stop Dose Admin Azithromycin 500 mg 05/14/24 14:28 05/14/24 14:49 Azithromycin 250mg Tablet PO 05/14/24 14:29 500 mg ONCE ONE Administration Lactated Ringer's 1,000 mls @ 999 mls/hr 05/14/24 14:03 05/14/24 14:05 Lactated Ringer's 1000 Ml Bag IV 05/14/24 15:03 999 mls/hr .Q1H1M ONE Administration ORDERS Category Date Time Status CMP [Comprehensive Metabolic Panel] Stat Lab 05/14/24 13:57 Completed Complete Blood Count Man Dif Stat Lab 05/14/24 13:57 Completed Rapid PCR Covid and Flu A/B Stat Lab 05/14/24 13:30 Completed Strep Scrn Group A (Rapid) Stat Lab 05/14/24 13:30 Completed Medical Decision Narrative: In summary patient is a 23-year-old female who presents to the emergency department for evaluation of pharyngitis headache and ear pain with subjective fever. Patient is patient is normotensive 135/85 but tachycardic on arrival at 121 satting at 99% on room air breathing 16 times a minute upon arrival, with a temperature of 99.8 on arrival. Physical exam is remarkable for posterior tonsillar exudate with hyperemia but airway is patent. Bilateral TMs are normal. Patient has bilateral cervical lymphadenopathy.. Differential diagnosis includes group A strep pharyngitis versus other bacterial pharyngitis versus viral pharyngitis. Initial workup will be conducted with hematologic labs strep COVID and flu swabs. Initial interventions include crystalloid bolus Toradol Tylenol. Initial workup reviewed by me shows that she is actually group A strep positive. Upon repeat evaluation patient is now no longer tachycardic with a heart rate of 95 and feels modestly better after initial intervention.. Given this patient is appropriate for discharge with a prescription for azithromycin given her penicillin allergy with prescription sent to her pharmacy and first dose given here. Critical Care Critical Care Time Critical Care Time: No
[2024-05-14 14:13] LABS: Alanine Aminotransferase 24 U/L (12-78); Albumin/Globulin Ratio 1.5 (1.1-1.8); Alkaline Phosphatase 76 U/L (38-126); Anion Gap 14.6 mEq/L (5-15); Aspartate Amino Transferase 28 U/L (14-36); Bilirubin,Total 1.1 mg/dl (0.2-1.3); Blood Urea Nitrogen 9 mg/dl (7-17); Carbon Dioxide 24 mmol/L (22.0-30.0); Creatinine Clearance Estimated 155 mL/min (50-200); Estimated Glomerular Filt Rate 68 ml/min (>60); GFR (African American) 82 ML/MIN (>60); Globulin 3.1 g/dL (1.3-3.2); Total Protein,Serum 7.8 g/dl (6.3-8.2)
[2024-05-14 14:14] LABS: Calcium 8.9 mg/dl (8.4-10.2); Glucose 95 mg/dl (74-100)
[2024-05-14 14:49] LABS: Lymphocytes % 7 % (10-50); Monocytes % 3 % (2-9); Neutrophils % 90 % (42-76); Total Cells Counted 100
[2024-05-14] MEDS: AZITHROMYCIN 250MG TABLET 500 MG PO (14:49)
[2024-05-14 14:50] LABS: Platelet Estimate Normal; RBC Morphology Normal
[2024-05-14 14:58] VITALS: BP 130/79; PULSE 95; RESP 20; TEMP 36.7; O2SAT 98
== END 2024-05-14 14:59 | disposition home or self-care (01) ==
PROVIDERS: Emergency Provider Emergency Medicine; PCP Family Medicine
DX: J02.0 Streptococcal pharyngitis (principal); R50.9 Fever, unspecified; R51.9 Headache, unspecified; H92.03 Otalgia, bilateral
CPT/HCPCS: 80053; 85007; 85014; 85018; 85048; 85049; 87430; 87636; 96360; 99284; J7120

== ENCOUNTER 2024-07-13 17:10 | Emergency (ER) | payer OTHER, SELFPAY ==
[2024-07-13 17:29] VITALS: BP 137/89; PULSE 105; RESP 16; TEMP 36.8; O2SAT 99; BMI 36.9
[2024-07-13 17:30] VITALS: BP 142/86; PULSE 90; O2SAT 98
--- NOTE | 2024-07-13 17:41 | CT_ITS ---
PROCEDURE INFORMATION: Exam: CTA Head With Contrast, Arteriography Exam date and time: 07/13/2024 6:28 PM Age: 23 years old Clinical indication: Pain; Headache; Additional info: Headache, concern for elevated icp TECHNIQUE: Imaging protocol: Computed tomographic angiography of the head with contrast. Exam focused on the arteries. 3D rendering (Not supervised by radiologist): MIP and/or 3D reconstructed images were created by the technologist. Radiation optimization: All CT scans at this facility use at least one of these dose optimization techniques: automated exposure control; mA and/or kV adjustment per patient size (includes targeted exams where dose is matched to clinical indication); or iterative reconstruction. Contrast material: ISVOUE 370; Contrast volume: 80 ml; Contrast route: INTRAVENOUS (IV); COMPARISON: CT VENOGRAM HEAD 07/13/2024 6:28 PM FINDINGS: ANTERIOR CIRCULATION: Right internal carotid artery: Intracranial segment is patent with no significant stenosis. No aneurysm. Right middle cerebral artery: No occlusion or significant stenosis. No aneurysm. Right anterior cerebral artery: No occlusion or significant stenosis. No aneurysm. Left internal carotid artery: Intracranial segment is patent with no significant stenosis. No aneurysm. Left middle cerebral artery: No occlusion or significant stenosis. No aneurysm. Left anterior cerebral artery: No occlusion or significant stenosis. No aneurysm. POSTERIOR CIRCULATION: Right vertebral artery: No occlusion or significant stenosis. No aneurysm. Left vertebral artery: No occlusion or significant stenosis. No aneurysm. Basilar artery: No occlusion or significant stenosis. No aneurysm. Right posterior cerebral artery: No occlusion or significant stenosis. No aneurysm. Left posterior cerebral artery: No occlusion or significant stenosis. No aneurysm. Brain: No definite mass, mass effect, or midline shift. Cerebral ventricles: No ventriculomegaly. Bones/joints: Unremarkable. No acute fracture. Soft tissues: Unremarkable. IMPRESSION: No large vessel stenosis or occlusion.
--- NOTE | 2024-07-13 17:41 | CT_ITS ---
PROCEDURE INFORMATION: Exam: CT Head Without Contrast Exam date and time: 07/13/2024 6:25 PM Age: 23 years old Clinical indication: Pain; Headache; Additional info: Headache, concern for elevated icp TECHNIQUE: Imaging protocol: Computed tomography of the head without contrast. Radiation optimization: All CT scans at this facility use at least one of these dose optimization techniques: automated exposure control; mA and/or kV adjustment per patient size (includes targeted exams where dose is matched to clinical indication); or iterative reconstruction. COMPARISON: None. FINDINGS: Brain: Normal. No hemorrhage. Unremarkable white matter. No mass effect. Cerebral ventricles: No ventriculomegaly. Paranasal sinuses: Visualized sinuses are unremarkable. No fluid levels. Mastoid air cells: Visualized mastoid air cells are well aerated. Bones: Unremarkable. No acute fracture. Soft tissues: Unremarkable. IMPRESSION: No acute intracranial abnormality.
--- NOTE | 2024-07-13 17:41 | CT_ITS ---
PROCEDURE INFORMATION: Exam: CTA Head With Contrast, Venography Exam date and time: 07/13/2024 6:28 PM Age: 23 years old Clinical indication: Pain; Headache; Additional info: Headache, concern for elevated icp TECHNIQUE: Imaging protocol: Computed tomography angiography of the head with contrast. Exam focused on the veins. 3D rendering (Not supervised by radiologist): MIP and/or 3D reconstructed images were created by the technologist. Radiation optimization: All CT scans at this facility use at least one of these dose optimization techniques: automated exposure control; mA and/or kV adjustment per patient size (includes targeted exams where dose is matched to clinical indication); or iterative reconstruction. Contrast material: ISOVUE 370; Contrast volume: 80 ml; Contrast route: INTRAVENOUS (IV); COMPARISON: CT ANGIO HEAD 07/13/2024 6:28 PM FINDINGS: Superior sagittal sinus: Patent. Straight sinus: Patent. Transverse sinuses: Patent. Sigmoid sinuses: Patent. Internal jugular veins: Limited visualized internal jugular veins are patent. Brain: No definite mass, mass effect, or midline shift. Cerebral ventricles: No ventriculomegaly. Soft tissues: Unremarkable. IMPRESSION: No venous thrombosis.
--- NOTE | 2024-07-13 17:41 | CT_ITS ---
PROCEDURE INFORMATION: Exam: CTA Neck With Contrast Exam date and time: 07/13/2024 6:28 PM Age: 23 years old Clinical indication: Pain; Headache; Additional info: Headache, concern for elevated icp TECHNIQUE: Imaging protocol: Computed tomographic angiography of the neck with contrast. Exam focused on the cervical segments of the vasculature. 3D rendering (Not supervised by radiologist): MIP and/or 3D reconstructed images were created by the technologist. Radiation optimization: All CT scans at this facility use at least one of these dose optimization techniques: automated exposure control; mA and/or kV adjustment per patient size (includes targeted exams where dose is matched to clinical indication); or iterative reconstruction. Contrast material: ISOVE 370; Contrast volume: 80 ml; Contrast route: INTRAVENOUS (IV); COMPARISON: CT ANGIO HEAD 07/13/2024 6:28 PM FINDINGS: Right common carotid artery: No stenosis. No dissection or occlusion. Right internal carotid artery: No stenosis of the extracranial segment. No dissection or occlusion. Right external carotid artery: No occlusion or stenosis of the origin. Left common carotid artery: No stenosis. No dissection or occlusion. Left internal carotid artery: No stenosis of the extracranial segment. No dissection or occlusion. Left external carotid artery: No occlusion or stenosis of the origin. Right vertebral artery: No stenosis. No dissection or occlusion. Left vertebral artery: No stenosis. No dissection or occlusion. Soft tissues: Normal. No significant soft tissue swelling. Bones/joints: No acute fracture. IMPRESSION: No stenosis or occlusion. REFERENCES: NASCET CRITERIA. The degree of stenosis in the cervical segment of the internal carotid artery is based on NASCET criteria. Normal is no stenosis. Mild is less than 50% stenosis. Moderate is 50-69% stenosis. Severe is 70% to 99% stenosis. Total occlusion is no detectable patent lumen.
--- NOTE | 2024-07-13 17:43 | [facility].EDGENADL ---
Discharge Plan Disposition Patient Disposition: Home, Self-Care Prescriptions Prescriptions: No Action methylprednisolone [Medrol (Alphonso)] 4 mg tablets,dose pack 4 mg PO PER PKG DIR Qty: 21 0RF diclofenac sodium 1 % gel 4 g topical QID PRN (Reason: pain ) 30 Days Qty: 100 2RF Rx Instructions: apply to single, ankle, foot; for foot includes sole/toes/top of foot Referrals Follow up/Referrals: Merlyn Gimenez MD [Primary Care Provider] - See instructions Cassie Mercedes MD [Staff Physician] - See instructions Activity Restrictions/Add. Instructions Additional Instructions/Restrictions: No evidence of any acute intracranial emergent medical condition but please follow-up with neurology if your symptoms persist. Clinical Impressions Clinical Impression: Headache Print Language Print Language: Albanian Discharge ED Provider: Rama Mandel General Adult HPI General Chief complaint: Headache Stated complaint: MADDOX X 1 week,no vomiting Time Seen by Provider: 07/13/24 17:25 Mode of Arrival: Ambulatory Source of Information: Patient Limitations: No Limitations Description of Symptoms (Recalled from ER Triage Doc. by RN): pt c/o a frontal MADDOX x1wk. pt states the pain is throbbing when she is in a seated position and pressure when standing/ambulating. pt reports she has taken tylenol and ibuprofen throughout the week without any relief. pt took her last dose of tylenol at lunch time without any relief. pt c/o photophobia, sensitivity to sound and pain is a 6/10. pt denies N/V or any other symptoms. History of Present Illness HPI narrative: Patient is a 23-year-old previously healthy female presented with a headache. She states that she does not have a history of any regular headaches and this is far out of proportion anything she has had in the past. Time of onset to time maximal intensity was over the period of a day but was slowly worsening. She denies any meningismus or any fevers no neurologic symptoms from historical standpoint but she has had significant photophobia and bilateral blurred vision. She denies being on any anticoagulation no history of any clotting disorder in her family she herself has never had any clots. No preceding illness. Related Data Previous Rx's ?Medication ?Instructions ?Recorded diclofenac sodium 1 % topical gel 4 g topical QID PRN pain 30 days 05/21/24 #100 grams methylprednisolone 4 mg tablets in 4 mg PO PER PKG DIR #21 tabs 05/21/24 a dose pack (Medrol (Alphonso)) Allergies Allergy/AdvReac Type Severity Reaction Status Date / Time amoxicillin Allergy Mild Hives Verified 07/13/24 17:36 Penicillins Allergy Mild hives Verified 07/13/24 17:36 [facility] Disclaimer: The information contained in this section may have been updated after the patient was seen, as this information can be updated by other users. 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 Abnormal electrocardiogram [ECG] [EKG] Sinus tachycardia Choroid plexus cyst Gastroenteritis Left flank pain Surgical History History of bilateral salpingectomy Family History Other No significant family history Social History Smoking Status: Current every day smoker tobacco type: e-cigarettes alcohol intake: never substance use type: denies use current occupational status: unemployed Travel in the last 8 weeks: None household members: children housing: apartment caffeine: Yes do you feel safe at home: Yes victim of physical abuse: No victim of emotional abuse: No victim of sexual abuse: No Other 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 Have you received the Flu Vaccine for this season: No Have you received the Pneumonia Vaccine: No ROS Obtained: Yes All systems reviewed & no additional complaints except as documented Physical Exam General General appearance: alert and in no apparent distress Respiratory Respiratory exam: Present normal lung sounds bilaterally Cardiovascular Cardiovascular exam: Present regular rate and normal rhythm Neurological Exam Neurological exam: Present alert, oriented X3, CN II-XII intact and normal gait; Absent motor sensory deficit Medical Decision Making Medical Records Screening: Per USPSTF and CDC recommendations, given the prevalence of disease in our region, it is our hospital?s policy to screen for HIV and viral Hepatitis for all patients aged 18 and over and those with ongoing risk factors. Maged Inquiry Pt receiving controlled substance: No Vital Signs: 07/13/24 17:29 07/13/24 17:30 Temperature 98.2 F Temperature Source Oral Pulse Rate 90 Pulse Rate [Left] 105 H Respiratory Rate 16 Blood Pressure 142/86 H Blood Pressure [Right Arm] 137/89 Blood Pressure Mean 104 Blood Pressure Mean [Right Arm] 105 Blood Pressure Source [Right Arm] Automatic Cuff Blood Pressure Position [Right Arm] Sitting 02 Sat by Pulse Oximetry 99 98 Oxygen Delivery Method Room Air Room Air Lab Data Lab results reviewed: Yes I reviewed the patient's lab results. Lab Results 07/13/24 17:45: WBC 7.4, RBC 4.46, Hgb 13.6, Hct 38.1, MCV 85.4, MCH 30.5, MCHC 35.7 H, RDW 13.2, Plt Count 287, MPV 7.9, Neut % (Auto) 55.0, Lymph % (Auto) 38.8, [place] % (Auto) 3.9, Eos % (Auto) 1.3, Baso % (Auto) 1.0, Neut # (Auto) 4.1, Lymph # (Auto) 2.9, [place] # (Auto) 0.3, Eos # (Auto) 0.1, Baso # (Auto) 0.1, Sodium 140, Potassium 3.8, Chloride 104, Carbon Dioxide 26, Anion Gap 13.8, BUN 13, Creatinine 1.00, Estimated Creat Clear 155, Estimated GFR 68, Est GFR ( Amer) 82, Glucose 93, Calcium 9.6, Total Bilirubin 0.4, AST 29, ALT 24, Alkaline Phosphatase 72, Total Protein 7.7, Albumin 4.6, Globulin 3.1, Albumin/Globulin Ratio 1.5, Serum HCG, Qual Negative, HIV 1&2 Antibody Rapid Nonreactive 07/13/24 17:45 07/13/24 17:45 Orders (Tests/Meds): ED MEDICATIONS Discontinued Medications Generic Name Dose Route Start Last Admin Trade Name Brittanie PRN Reason Stop Dose Admin Diphenhydramine HCl 25 mg 07/13/24 17:31 07/13/24 17:57 Diphenhydramine 50mg/Ml Vial IV 07/13/24 17:32 25 mg ONCE ONE Administration Lactated Ringer's 1,000 mls @ 999 mls/hr 07/13/24 17:45 07/13/24 17:58 Lactated Ringer's 1000 Ml Bag IV 07/13/24 18:45 999 mls/hr .Q1H1M SABRINA Administration Iopamidol 80 ml 07/13/24 18:33 07/13/24 18:34 Iopamidol-370 (76%);100ml Bottle IV 07/13/24 18:34 80 ml ONCE ONE Administration Ketorolac Tromethamine 15 mg 07/13/24 17:31 07/13/24 17:57 Ketorolac 30mg/Ml Vial IV 07/13/24 17:32 15 mg ONCE ONE Administration Prochlorperazine Edisylate 10 mg 07/13/24 17:31 07/13/24 17:57 Prochlorperazine 10mg/2ml Vial IV 07/13/24 17:32 10 mg ONCE ONE Administration Sodium Chloride 10 ml 07/13/24 18:33 07/13/24 18:34 Sodium Chloride 0.9% 10ml Syr (Rad Only) IV 07/13/24 18:34 10 ml ONCE ONE Administration Sodium Chloride 50 ml 07/13/24 18:33 07/13/24 18:33 0.9 % Sodium Chloride 50 Ml Vial IV 07/13/24 18:34 50 ml ONCE ONE Administration ORDERS Category Date Time Status CT Venogram head Stat Cat Scan 07/13/24 17:[address] angio head Stat Cat Scan 07/13/24 17:[address] angio neck Stat Cat Scan 07/13/24 17:[address] head/brain wo con Stat Cat Scan 07/13/24 17:41 Completed POCUS Point of Care (ER Only) Stat Exams 07/13/24 17:32 Completed CBC w/Auto Diff [Complete Blood Count Auto Diff] Stat Lab 07/13/24 17:45 Completed CMP [Comprehensive Metabolic Panel] Stat Lab 07/13/24 17:45 Completed HCG Qualitative, Serum Stat Lab 07/13/24 17:45 Completed HIV (1&2) Antibody Rapid Stat Lab 07/13/24 17:45 Completed Hep C Ab with Reflex to RNA Stat Lab 07/13/24 17:45 Received Medical Decision Narrative: 23-year-old female with a normal neurologic exam presents today with headache that is at a proportion to think she has had in the past she does have evidence of bedside ultrasound and questionable elevated increased intracranial pressures. Differential includes idiopathic intracranial hypertension, brain tumor malignancy, migraine, vascular pathology, venous sinus thrombosis etc. CT scan of the patient's head and CT angio head and neck and CT venogram of the head were all ordered. IV fluids Toradol Compazine Benadryl were all administered Reassessment after 1 to 2 hours patient feels significantly better and states that her headache is tolerable at this point serial neurologic exams are normal. CT scans performed which I personally interpreted also reviewed radiology images and there is no acute abnormalities noted. At this point while idiopathic intracranial hypertension is on the differential as well as meningitis I believe that in particular meningitis is extremely unlikely and that an LP would not add any significant benefits from a diagnostic standpoint at the moment. She has been advised to follow-up with neurology if she continues to have persistent symptoms. She was discharged in stable and improved condition. Procedures Miscellaneous Procedure Procedure Performed: Limited ocular ultrasound Indication: Bilateral blurred vision and headache Identified structures: -[R eye/L eye/Both eyes] Findings: Right eye: Retina: Normal Lens: Normal Vitreous body: Anechoic Optic nerve sheath diameter (mm): Bilaterally at a depth of 0.3 cm on serial measurements 0.6 cm Foreign body: Absent Left eye: Retina: Normal Lens: Normal Vitreous body: Anechoic Optic nerve sheath diameter: As stated above Foreign body: Absent Impression: Overall relatively normal bilateral ocular ultrasounds however optic nerve sheath diameter is just above the upper limits of normal bilaterally concerning for possible elevated intracranial pressures Images were saved to permanent archive The study was technically adequate CPT 62204-38 This study was performed by me, and I personally interpreted all images/videos. Based on my clinical judgement, these images were adequate and did not necessitate further imaging. Critical Care Critical Care Time Critical Care Time: No
[2024-07-13] MEDS: diphenhydrAMINE 50MG/ML VIAL 25 MG IV (17:57)
[2024-07-13] MEDS: KETOROLAC 30MG/ML VIAL 15 MG IV (17:57)
[2024-07-13] MEDS: PROCHLORPERAZINE 10MG/2ML VIAL 10 MG IV (17:57)
[2024-07-13] MEDS: LACTATED RINGERS 1000ML 1,000 ML 999 ML IV (17:58)
[2024-07-13 18:05] LABS: Basophils # 0.1 K/mm3 (0-0.2); Eosinophils # 0.1 K/mm3 (0.0-0.4); Eosinophils % 1.3 % (0.1-12.0); Hematocrit 38.1 % (37.0-47.0); Hemoglobin 13.6 g/dL (12.2-16.2); Lymphocytes # 2.9 K/mm3 (0.7-4.5); Lymphocytes % 38.8 % (10-50); Mean Corpuscular HGB Conc 35.7 g/dL (31.8-35.4); Mean Corpuscular Hemoglobin 30.5 pg (27.0-31.2); Mean Corpuscular Volume 85.4 fl (81-99); Mean Platelet Volume 7.9 fl (7.4-10.4); Monocytes # 0.3 K/mm3 (0.1-1.0); Monocytes % 3.9 % (1.7-9.3); Neutrophils # 4.1 K/mm3 (1.8-7.8); Platelet Count 287 K/mm3 (142-424); Red Blood Count 4.46 M/mm3 (4.20-5.40); Red Cell Distribution Width 13.2 % (11.5-17.5); White Blood Count 7.4 K/mm3 (4.8-10.8)
[2024-07-13 18:08] LABS: Albumin Level 4.6 g/dl (3.5-5.0); Chloride 104 mmol/L (98-107); Potassium 3.8 mmoL/L (3.5-5.1); Sodium 140 mmol/L (136-145)
[2024-07-13 18:10] LABS: Blood Urea Nitrogen 13 mg/dl (7-17); Creatinine Clearance Estimated 155 mL/min (50-200); Estimated Glomerular Filt Rate 68 ml/min (>60); GFR (African American) 82 ML/MIN (>60)
[2024-07-13 18:11] LABS: Alanine Aminotransferase 24 U/L (12-78); Albumin/Globulin Ratio 1.5 (1.1-1.8); Alkaline Phosphatase 72 U/L (38-126); Anion Gap 13.8 mEq/L (5-15); Aspartate Amino Transferase 29 U/L (14-36); Bilirubin,Total 0.4 mg/dl (0.2-1.3); Calcium 9.6 mg/dl (8.4-10.2); Carbon Dioxide 26 mmol/L (22.0-30.0); Globulin 3.1 g/dL (1.3-3.2); Glucose 93 mg/dl (74-100); Total Protein,Serum 7.7 g/dl (6.3-8.2)
[2024-07-13] MEDS: 0.9 % SODIUM CHLORIDE 50 ML VIAL IV (18:33)
[2024-07-13] MEDS: IOPAMIDOL-370 (76%);100ML BOTTLE 80 ML IV (18:34)
[2024-07-13] MEDS: SODIUM CHLORIDE 0.9% 10ML SYR (RAD ONLY) 10 ML IV (18:34)
[2024-07-13 19:08] LABS: HCG Qualitative, Serum Negative (Negative)
[2024-07-13 19:34] LABS: HIV (1&2) Antibody Rapid NONREACTIVE (NONREACTIVE)
[2024-07-13 19:54] VITALS: BP 132/77; PULSE 88; RESP 18; TEMP 36.8; O2SAT 95
[2024-07-15 08:24] LABS: HCV Ab Non Reactive (Non Reactive)
== END 2024-07-13 19:55 | disposition home or self-care (01) ==
PROVIDERS: Emergency Provider Student in an Organized Health Care Education/Training Program; PCP Family Medicine
DX: R51.9 Headache, unspecified (principal)
CPT/HCPCS: 70450; 70496; 70498; 80053; 84703; 85025; 86803; 87389; 96361; 96374; 96375; 99285; J0780; J1200; J1885; J7120; Q9967

== ENCOUNTER 2025-02-28 20:08 | Emergency (ER) | payer OTHER, SELFPAY ==
[2025-02-28 20:30] VITALS: BP 129/80; PULSE 105; RESP 17; TEMP 37.1; O2SAT 100; BMI 24.3
--- NOTE | 2025-02-28 20:30 | ED_ITS ---
Discharge Plan Disposition Patient Disposition: Home, Self-Care Condition: Good Prescriptions Prescriptions: New terbinafine HCl [Lamisil AT] 1 % cream 1 applic topical BID 14 Days Qty: 30 0RF fluticasone propionate [Flonase Allergy Relief] 50 mcg/actuation spray,suspension 1 spray intranasal BID PRN (Reason: nasal congestion) Qty: 16 0RF Rx Instructions: administer into each nostril cetirizine 10 mg tablet 10 mg PO DAILY PRN (Reason: allergy symptoms) Qty: 10 0RF No Action diclofenac sodium 1 % gel 4 g topical QID PRN (Reason: pain ) 30 Days Qty: 100 2RF Rx Instructions: apply to single, ankle, foot; for foot includes sole/toes/top of foot Referrals Follow up/Referrals: Merlyn Gimenez MD [Primary Care Provider] - See instructions Activity Restrictions/Add. Instructions Additional Instructions/Restrictions: Today you were evaluated in the emergency department. Please use your medication as directed. Please follow-up with your PCP within 7 days. Please return to the ED for worsening of condition. Remember, the ringworm rash on your left arm is contagious. Wash your hands thoroughly. Clinical Impressions Clinical Impression: Ringworm Acute serous otitis media Qualifiers: Laterality: bilateral Recurrence: non-recurrent Qualified Code(s): H65.03 - Acute serous otitis media, bilateral Print Language Print Language: Austrian Discharge ED Provider: Philip Wong General Adult HPI <Cinthia Shipley APRN - Last Filed: 02/28/25 20:38> General Chief complaint: PAIN Stated complaint: rash upper left arm, ear pain, sore throat Time Seen by Provider: 02/28/25 20:22 History of Present Illness HPI narrative: patient is a 24-year-old female no significant PMHx who presents to the ED with complaints of a rash on her left upper arm, sore throat, bilateral ear pain x 4 days. Patient states she has tried [id number] DayQuil without any relief. Related Data Previous Rx's ?Medication ?Instructions ?Recorded diclofenac sodium 1 % topical gel 4 g topical QID PRN pain 30 days 05/21/24 #100 grams cetirizine 10 mg tablet 10 mg PO DAILY PRN allergy 02/28/25 symptoms #10 tabs fluticasone propionate 50 1 spray intranasal BID PRN nasal 02/28/25 mcg/actuation nasal congestion #16 grams spray,suspension (Flonase Allergy Relief) terbinafine HCl 1 % topical cream 1 applic topical BID 14 days #30 02/28/25 (Lamisil AT) grams Allergies Allergy/AdvReac Type Severity Reaction Status Date / Time amoxicillin Allergy Mild Hives Verified 02/28/25 20:37 Penicillins Allergy Mild hives Verified 02/28/25 20:37 [facility] <Cinthia Shipley APRN - Last Filed: 02/28/25 20:38> [facility] Disclaimer: The information contained in this section may have been updated after the patient was seen, as this information can be updated by other users. 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 Abnormal electrocardiogram [ECG] [EKG] Sinus tachycardia Choroid plexus cyst Gastroenteritis Left flank pain Surgical History History of bilateral salpingectomy Family History Other No significant family history Social History Smoking Status: Current every day smoker tobacco type: e-cigarettes alcohol intake: never substance use type: denies use current occupational status: unemployed Travel in the last 8 weeks?: None household members: children housing: apartment caffeine: Yes do you feel safe at home: Yes victim of physical abuse: No victim of emotional abuse: No victim of sexual abuse: No Have you lived/traveled outside US in past 30 days?: No Contact w/someone who lives/traveled outside US past 30 days?: No Exposure to someone with infectious disease in past 14 days?: No Do you have a fever (greater than 100.4 F or 38 C)?: No Have you tested positive for COVID-19?: No Exposed to someone with COVID-19 in past 14 days?: No Do you have a sore throat?: Yes Do you have a cough?: Yes Do you have any weakness?: No Do you have any diarrhea?: No Are you experiencing any unusual bleeding?: No Do you have any muscle aches/pain?: No Do you have any abdominal pain?: No Are you experiencing loss of taste or smell?: No Other 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 Have you received the Flu Vaccine for this season: No Have you received the Pneumonia Vaccine: No <Cinthia Shipley APRN - Last Filed: 02/28/25 20:38> ROS Obtained: Yes Systems reviewed as appropriate & no additional complaints except as documented Physical Exam <Cinthia Shipley APRN - Last Filed: 02/28/25 20:38> General General appearance: alert and in no apparent distress Head Head exam: atraumatic and normocephalic Eye Eye exam: Present normal appearance and PERRL ENT ENT exam: Present normal exam, normal oropharynx (clear posterior drainage ) and other (Bilateral serous otitis) Neck Neck exam: Present normal inspection Chest Chest inspection: Present normal inspection and symmetric chest wall rise; Absent tenderness Respiratory Respiratory exam: Present normal lung sounds bilaterally Cardiovascular Cardiovascular exam: Present regular rate Abdominal Exam Abdominal exam: Present soft and normal bowel sounds; Absent tenderness Extremities Exam Extremities exam: Present normal inspection and full ROM Back Exam Back exam: Present normal inspection and full ROM Neurological Exam Neurological exam: Present alert and oriented X3 Psychiatric Psychiatric exam: Present normal affect and normal mood Skin Skin exam: Present warm, dry and other (Erythematous, raised, circular rash on left upper arm with central clearing) Medical Decision Making <Cinthia Shipley APRN - Last Filed: 02/28/25 20:38> Medical Records Screening: Per USPSTF and CDC recommendations, given the prevalence of disease in our region, it is our hospital?s policy to screen for HIV and viral Hepatitis for all patients aged 18 and over and those with ongoing risk factors. Maged Inquiry Pt receiving controlled substance: No Vital Signs: 02/28/25 20:30 02/28/25 20:44 Temperature 98.7 F 98.2 F Temperature Source Oral Oral Pulse Rate 106 H Pulse Rate [Right Brachial] 105 H Respiratory Rate 17 18 Blood Pressure 125/80 Blood Pressure [Right Arm] 129/80 Blood Pressure Mean [Right Arm] 96 Blood Pressure Source Automatic Cuff Blood Pressure Source [Right Arm] Automatic Cuff Blood Pressure Position Sitting Blood Pressure Position [Right Arm] Sitting 02 Sat by Pulse Oximetry 100 Oxygen Delivery Method Nasal Cannula Room Air Medical Decision Narrative: In summary, patient is a 24-year-old female no significant PMHx who presents to the ED with complaints of a rash on her left upper arm, sore throat, bilateral ear pain x 4 days. Patient states she has tried [id number] DayQuil without any relief. Patient states that she has not been putting any medication on her rash however it is itching. Denies any additional complaints. Denies fever, chills, body aches, chest pain, shortness of breath, abdominal pain Upon initial evaluation patient is alert, oriented and cooperative. She has a large erythematous circular rash with central clearing, raised edges on the left upper arm. She has clear posterior pharynx drainage. She has clear bilateral TM effusion. Discussed with patient that we will prescribe a topical medication for her left upper arm rash which is ringworm. Advised her this may take 2 weeks to clear. Discussed that this was contagious. Advised her for her sore throat and ear pain we we will prescribe Flonase and cetirizine. Advised her to follow-up with PCP within 5 days Return to the ED for worsening of condition. <Philip Wong MD - Last Filed: 02/28/25 20:55> Vital Signs: 02/28/25 20:30 02/28/25 20:44 Temperature 98.7 F 98.2 F Temperature Source Oral Oral Pulse Rate 106 H Pulse Rate [Right Brachial] 105 H Respiratory Rate 17 18 Blood Pressure 125/80 Blood Pressure [Right Arm] 129/80 Blood Pressure Mean [Right Arm] 96 Blood Pressure Source Automatic Cuff Blood Pressure Source [Right Arm] Automatic Cuff Blood Pressure Position Sitting Blood Pressure Position [Right Arm] Sitting 02 Sat by Pulse Oximetry 100 Oxygen Delivery Method Nasal Cannula Room Air Medical Decision Narrative: In summary, patient is a 24-year-old female no significant PMHx who presents to the ED with complaints of a rash on her left upper arm, sore throat, bilateral ear pain x 4 days. Patient states she has tried [id number] DayQuil without any relief. Patient states that she has not been putting any medication on her rash however it is itching. Denies any additional complaints. Denies fever, chills, body aches, chest pain, shortness of breath, abdominal pain Upon initial evaluation patient is alert, oriented and cooperative. She has a large erythematous circular rash with central clearing, raised edges on the left upper arm. She has clear posterior pharynx drainage. She has clear bilateral TM effusion. Discussed with patient that we will prescribe a topical medication for her left upper arm rash which is ringworm. Advised her this may take 2 weeks to clear. Discussed that this was contagious. Advised her for her sore throat and ear pain we we will prescribe Flonase and cetirizine. Advised her to follow-up with PCP within 5 days Return to the ED for worsening of condition. I was consulted by the [place], and we discussed the complexity of the problems being addressed. I approved the treatment and management plan for this patient's care in the Emergency Department, thus performing a substantive portion of the medical decision making. Philip Wong MD Critical Care <Cinthia Shipley, [facility] - Last Filed: 02/28/25 20:38> Critical Care Time Critical Care Time: No
[2025-02-28 20:44] VITALS: BP 125/80; PULSE 106; RESP 18; TEMP 36.8; O2SAT 100
== END 2025-02-28 20:45 | disposition home or self-care (01) ==
PROVIDERS: Emergency Provider Emergency Medicine; PCP Family Medicine
DX: H65.03 Acute serous otitis media, bilateral (principal); R07.0 Pain in throat; B35.9 Dermatophytosis, unspecified; F17.290 Nicotine dependence, other tobacco product, uncomplicated
CPT/HCPCS: 99283

== ENCOUNTER 2025-03-15 14:38 | Emergency (ER) | payer OTHER, SELFPAY ==
[2025-03-15] VITALS (12 sets, daily range): BP systolic 95–123; BP diastolic 57–77; PULSE 89–102; RESP 16; TEMP 36.7; O2SAT 98–100; BMI 29.5
--- NOTE | 2025-03-15 15:05 | ED_ITS ---
<Statement entered by Rama Mandel MD - 03/15/25 23:02> I was consulted by the [place], and we discussed the complexity of the problems being addressed. I approved the treatment and management plan for this patient's care in the emergency department, thus performing a substantive portion of the medical decision making. Rama Mandel MD, [facility], FACEP Discharge Plan Disposition Patient Disposition: Home, Self-Care Prescriptions Prescriptions: New potassium chloride 10 mEq capsule, extended release 10 meq PO BID Qty: 10 0RF ondansetron 4 mg tablet,disintegrating 4 mg PO Q6HP PRN (Reason: nausea and vomiting) 5 Days Qty: 5 0RF No Action diclofenac sodium 1 % gel 4 g topical QID PRN (Reason: pain ) 30 Days Qty: 100 2RF Rx Instructions: apply to single, ankle, foot; for foot includes sole/toes/top of foot terbinafine HCl [Lamisil AT] 1 % cream 1 applic topical BID 14 Days Qty: 30 0RF fluticasone propionate [Flonase Allergy Relief] 50 mcg/actuation spray,suspension 1 spray intranasal BID PRN (Reason: nasal congestion) Qty: 16 0RF Rx Instructions: administer into each nostril cetirizine 10 mg tablet 10 mg PO DAILY PRN (Reason: allergy symptoms) Qty: 10 0RF Referrals Follow up/Referrals: Merlyn Gimenez MD [Primary Care Provider, Medical] - See instructions Clinical Impressions Clinical Impression: Nausea and vomiting Qualifiers: Vomiting type: unspecified Qualified Code(s): R11.2 - Nausea with vomiting, unspecified Diarrhea Qualifiers: Diarrhea type: unspecified type Qualified Code(s): R19.7 - Diarrhea, unspecified Stand Alone Forms Stand Alone Forms: Work/School Release Instructions Patient Instructions: DI for Diarrhea and Traveler's Diarrhea -- Adult, DI for Nausea -- Adult Print Language Print Language: Divehi Discharge ED Provider: Rama Mandel General Adult HPI General Chief complaint: Nausea/Vomiting/Diarrhea Stated complaint: V/D, fever, body aches, H/A Time Seen by Provider: 03/15/25 14:50 Mode of Arrival: Ambulatory Source of Information: Patient Description of Symptoms (Recalled from ER Triage Doc. by RN): pt presents with N/V/D, chest congestion, fever, and body aches for past 2 days. History of Present Illness HPI narrative: This is a 24-year-old female who presents to the ED today for complaint of fevers as high as 101.5, nausea, vomiting and diarrhea. She has also had bodyaches. This has been going on for the last 2 days. She has been unable to tolerate food or fluids. Related Data Previous Rx's ?Medication ?Instructions ?Recorded diclofenac sodium 1 % topical gel 4 g topical QID PRN pain 30 days 05/21/24 #100 grams cetirizine 10 mg tablet 10 mg PO DAILY PRN allergy 0 02/28/25 symptoms #10 tabs fluticasone propionate 50 1 spray intranasal BID PRN n buzz 02/28/25 mcg/actuation nasal congestion #16 grams spray,suspension (Flonase Allergy Relief) terbinafine HCl 1 % topical cream 1 applic topical BID 14 days #30 02/28/25 (Lamisil AT) grams ondansetron 4 mg disintegrating 4 mg PO Q6HP PRN nause a and 03/15/25 tablet vomiting 5 days #5 tabs potassium chloride 10 mEq 10 meq PO BID #10 caps 03/15 capsule,extended release Allergies Allergy/AdvReac Type Severity Reaction Status Date / Time amoxicillin Allergy Mild Hives Verified 02/28/25 20:37 Penicillins Allergy Mild hives Verified 02/28/25 20:37 [facility] Disclaimer: The information contained in this section may have been updated after the patient was seen, as this information can be updated by other users. 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 Abnormal electrocardiogram [ECG] [EKG] Sinus tachycardia Choroid plexus cyst Gastroenteritis Left flank pain Surgical History History of bilateral salpingectomy Family History Other No significant family history Social History Smoking Status: Current every day smoker tobacco type: e-cigarettes alcohol intake: never substance use type: denies use current occupational status: unemployed Travel in the last 8 weeks?: None household members: children housing: apartment caffeine: Yes do you feel safe at home: Yes victim of physical abuse: No victim of emotional abuse: No victim of sexual abuse: No Have you lived/traveled outside US in past 30 days?: No Contact w/someone who lives/traveled outside US past 30 days?: No Exposure to someone with infectious disease in past 14 days?: No Do you have a fever (greater than 100.4 F or 38 C)?: No Have you tested positive for COVID-19?: No Exposed to someone with COVID-19 in past 14 days?: No Do you have a sore throat?: No Do you have a cough?: Yes Do you have any weakness?: No Do you have any diarrhea?: Yes Are you experiencing any unusual bleeding?: No Do you have any muscle aches/pain?: Yes Do you have any abdominal pain?: No Are you experiencing loss of taste or smell?: No Other 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 Have you received the Flu Vaccine for this season: No Have you received the Pneumonia Vaccine: No ROS Obtained: Yes Systems reviewed as appropriate & no additional complaints except as documented Constitutional Constitutional: Reports as per HPI Physical Exam General General appearance: alert Head Head exam: atraumatic and normocephalic Eye Eye exam: Present normal appearance, PERRL and EOMI ENT ENT exam: Present normal oropharynx and mucous membranes moist Neck Neck exam: Present full ROM and trachea midline Respiratory Respiratory exam: Present normal lung sounds bilaterally Cardiovascular Cardiovascular exam: Present regular rate, normal rhythm, normal heart sounds, +S1 and +S2 Abdominal Exam Abdominal exam: Present soft and normal bowel sounds Extremities Exam Extremities exam: Present normal inspection, full ROM and normal capillary refill Neurological Exam Neurological exam: Present alert, oriented X3 and normal gait Skin Skin exam: Present warm, dry and intact Medical Decision Making Medical Records Medical records reviewed: Yes I reviewed the patient's medical records. Screening: Per USPSTF and CDC recommendations, given the prevalence of disease in our region, it is our hospital?s policy to screen for HIV and viral Hepatitis for all patients aged 18 and over and those with ongoing risk factors. Maged Inquiry Pt receiving controlled substance: No Maged was queried for this patient: No Vital Signs: 03/15/25 14:50 03/15/25 14:50 03/15/25 15:00 Temperature 98.1 F Temperature Source Oral Pulse Rate 96 H 93 H Pulse Rate [Left] 89 Respiratory Rate 16 Blood Pressure 120/77 120/77 Blood Pressure [Right Arm] 120/77 Blood Pressure Mean [Right Arm] 91 Blood Pressure Source [Right Arm] Automatic Cuff Blood Pressure Position Blood Pressure Position [Right Arm] Sitting 02 Sat by Pulse Oximetry 99 99 100 Oxygen Delivery Method Room Air 03/15/25 15:19 03/15/25 15:30 03/15/25 16:00 Temperature Temperature Source Pulse Rate 90 92 H 89 Pulse Rate [Left] Respiratory Rate Blood Pressure 123/74 116/74 101/66 L Blood Pressure [Right Arm] Blood Pressure Mean [Right Arm] Blood Pressure Source [Right Arm] Blood Pressure Position Blood Pressure Position [Right Arm] 02 Sat by Pulse Oximetry 98 100 100 Oxygen Delivery Method 03/15/25 16:30 03/15/25 17:00 03/15/25 17:30 Temperature Temperature Source Pulse Rate 91 H 93 H 93 H Pulse Rate [Left] Respiratory Rate Blood Pressure 100/64 L 104/68 L 99/60 L Blood Pressure [Right Arm] Blood Pressure Mean [Right Arm] Blood Pressure Source [Right Arm] Blood Pressure Position Blood Pressure Position [Right Arm] 02 Sat by Pulse Oximetry 99 99 99 Oxygen Delivery Method 03/15/25 18:00 03/15/25 18:23 03/15/25 19:06 Temperature Temperature Source Pulse Rate 95 H 89 102 H Pulse Rate [Left] Respiratory Rate Blood Pressure 103/57 L 95/61 L 107/76 L Blood Pressure [Right Arm] Blood Pressure Mean [Right Arm] Blood Pressure Source [Right Arm] Blood Pressure Position Blood Pressure Position [Right Arm] 02 Sat by Pulse Oximetry 99 100 100 Oxygen Delivery Method 03/15/25 19:23 Temperature 98.1 F Temperature Source Oral Pulse Rate 97 H Pulse Rate [Left] Respiratory Rate 16 Blood Pressure 107/76 L Blood Pressure [Right Arm] Blood Pressure Mean [Right Arm] Blood Pressure Source [Right Arm] Blood Pressure Position Sitting Blood Pressure Position [Right Arm] 02 Sat by Pulse Oximetry Oxygen Delivery Method Room Air Lab Data Lab Results 03/15/25 15:02: WBC 6.1, RBC 4.64, Hgb 13.8, Hct 40.0, MCV 86.2, MCH 29.7, MCHC 34.5, RDW 12.0, Plt Count 253, MPV 10.0, Neut % (Auto) 72.1, Lymph % (Auto) 18.3, Mcdonald % (Auto) 7.4, Eos % (Auto) 1.0, Baso % (Auto) 0.5, Neut # (Auto) 4.4, Lymph # (Auto) 1.1, Mcdonald # (Auto) 0.5, Eos # (Auto) 0.1, Baso # (Auto) 0.0, S odium 135 L, Potassium 3.2 L, Chloride 103, Carbon Dioxide 26, Anion Gap 9.2, BUN 11, Creatinine 1.00, Estimated Creat Clear 123, Estimated GFR 68, Est GFR ( Amer) 82, Glucose 92, Calcium 9.0, Magnesium 1.9, Total Bilirubin 0.9, AST 32, ALT 25, Alkaline Phosphatase 69, Total Protein 7.7, Albumin 4.7, Globulin 3.0, Albumin/Globulin Ratio 1.6, Lipase 30 03/15/25 15:21: SARS-CoV-2 (PCR) Not detected, Influenza A Untype (PCR) Not detected, Influenza Type B (PCR) Not detected 03/15/25 15:36: Urine Color Yellow, Urine Appearance Cloudy, Urine pH 6.0, Ur Specific [place] 1.025, Urine Protein 1+ A, Urine Glucose (UA) Negative, Urine Ketones Trace, Urine Blood Negative, Urine Nitrate Negative, Urine Bilirubin Negative, Urine Urobilinogen 0.2, Ur Leukocyte Esterase Negative, Urine RBC 10- 20, Urine WBC 5-10, Ur Squamous Epith Cells 20-50, Urine Bacteria 4+, Urine Mucus 4+ 03/15/25 15:02 03/15/25 15:02 Orders (Tests/Meds): ED MEDICATIONS Discontinued Medications Generic Name Dose Route Start Last Admin Trade Name Freq PRN Reason Stop Dose Admin Diphenhydramine HCl 25 mg 03/15/25 17:32 03/15/25 17:43 Diphenhydramine 50mg/Ml Vial IV 03/15/25 17:33 25 mg ONCE ONE Administration Famotidine 20 mg 03/15/25 14:58 03/15/25 15:10 Famotidine 20mg/2ml Vial IV 03/15/25 14:59 20 mg ONCE ONE Administration Sodium Chloride 1,000 mls @ 999 mls/hr 03/15/25 14:58 03/15/25 15:10 Sod Chlor 0.9% 1000ml Bag IV 03/15/25 15:58 999 mls/hr .Q1H1M ONE Administration Metoclopramide HCl 10 mg 03/15/25 17:32 03/15/25 17:43 Metoclopramide Hcl 10mg/2ml Vial IVP 03/15/25 17:33 10 mg ONCE ONE Administration Ondansetron HCl 4 mg 03/15/25 14:58 03/15/25 15:11 Ondansetron 4mg/2ml Vial IV 03/15/25 14:59 4 mg ONCE ONE Administration Sodium Chloride 8 ml 03/15/25 14:58 03/15/25 15:11 Sodium Chloride 0.9% 10ml Vial IV 04/14/25 14:57 8 ml NEEDED PRN Administration dilute pepcid ORDERS Category Date Time Status CBC [Complete Blood Count Auto Diff] Stat Lab 03/15/25 15:02 Completed Comprehensive Metabolic Panel Stat Lab 03/15/25 15:02 Completed Lipase Stat Lab 03/15/25 15:02 Completed Magnesium Stat Lab 03/15/25 15:02 Completed Rapid PCR Covid and Flu A/B Stat Lab 03/15/25 15:21 Completed Rapid Strep Scrn Group A [Strep Scrn Group A (Rapid)] Lab 03/15/25 14:59 Ordered Stat Urinalysis-Acute [Urinalysis and Microscopic] Stat Lab 03/15/25 15:36 Completed Urine Culture Stat Micro 03/15/25 15:36 Received Medical Decision Narrative: patient is a 24-year-old female presenting to the emergency department for evaluation of nausea, vomiting and diarrhea along with bodyaches. She has had fevers as high as 101.5 for the past 2 days. She has been intolerant to food and fluids.. Patient is hemodynamically stable and nontoxic-appearing upon arrival, afebrile. Differential diagnosis includes viral illness, flu, COVID, among others. Workup will be conducted with hematologic labs, flu and COVID swabs. Initial inventions include crystalloid bolus, analgesics, antibiotics. Initial workup reviewed by ar hematologic labs are remarkable for low potassium but patient has not been able to tolerate food and fluids we will send this home with patient. Patient received IV fluids and Zofran as well as Benadryl and Reglan for nausea and vomiting. She was finally able to tolerate p.o. fluids without difficulty. Patient is now safe to go home. Patient will follow-up with primary care Critical Care Critical Care Time Critical Care Time: No
[2025-03-15 15:08] LABS: Basophils % 0.5 % (0.1-2.0); Eosinophils # 0.1 Kmm3 (0.0-0.4); Hemoglobin 13.8 g/dL (12.2-16.2); Immature Granulocytes # 0.04 10^3uL; Immature Granulocytes % 0.7 %; Lymphocytes # 1.1 K/mm3 (0.7-4.5); Lymphocytes % 18.3 % (10-50); Mean Corpuscular HGB Conc 34.5 g/dL (31.8-35.4); Mean Corpuscular Hemoglobin 29.7 pg (27.0-31.2); Mean Corpuscular Volume 86.2 fl (81-99); Monocytes # 0.5 K/mm3 (0.1-1.0); Monocytes % 7.4 % (1.7-9.3); Neutrophils # 4.4 K/mm3 (1.8-7.8); Neutrophils % 72.1 % (37.0-80.0); Nucleated Red Blood Cells # 0 10^3/uL; Nucleated Red Blood Cells % 0 %; Platelet Count 253 K/mm3 (142-424); Red Blood Count 4.64 M/mm3 (4.20-5.40); Red Cell Distribution Width-SD 37.7 fL; White Blood Count 6.1 K/mm3 (4.8-10.8)
--- OUTSIDE RECORDS SUMMARY | 2025-03-15 15:09 | XMS_ITS | Clinical Summary ---
Author Organization [facility] Address [address] [place] [address] Care Team Providers Care Rat Poisoner Name Role Phone Unavailable Primary Care Provider Unavailabl e Social History Tobacco Use Types Packs/Day Years Used Date Smoking Tobacco: Never Assessed Comments Unknown Sex and Gender Information Value Date Recorded Sex Assigned at Not on file Legal Sex Female 8:49 PM EDT Gender Identity Not on file Sexual Orientation Not on file Plan of Treatment Health Maintenance Due Date Last Done Comments [facility]-Depression Screening 1999 [facility]-/Child/Adol SDOH Screenings 1999 [facility]-Varicella Vaccines (2 of 2 - 2-dose childhood series) 2003 08/15/2001 HPV Vaccines (1 - 3-dose series) 12/16/2014 [facility]- SDOH Screenings 12/16/2017 [facility]-Adult SDOH Screenings 12/16/2017 [facility]-DTaP,Tdap,and Td Vaccine s (1 - Tdap) 12/16/2018 [facility]-Hepatitis B Vaccines (1 of 3 - 19+ 3-dose series) 12/16/2018 [facility]-Pap Smear 12/16/2020 [id number] Vaccine (1 - 20 24-25 season) 2024 [facility]-Influenza Vaccine ([place] n Ended) 2025 [facility]-Zoster Vaccines (1 of 2) 12/16/2049 08/15/2001 [facility]-HIB Vaccines Aged Out No longer e ligible based on patient's age to complete this topic [facility]-Hepatitis A Vaccines Aged Out No longer eligible based on patient's age to complete this topic [facility]-IPV Vaccines Aged Out No longer e ligible based on patient's age to complete this topic [facility]-Pneumococcal Vaccine: Pediatrics (0 to 5 Years) and At-Risk Patients (6 to 49 Years) Aged Out No long er eligible based on patient's age to complete this topic [facility]-Rotavirus Vaccines Aged Out No lo nger eligible based on patient's age to complete this topic Insurance [employer]ICA[employer]
[2025-03-15] MEDS: 0.9 % SODIUM CHLORIDE 1000ML 1,000 ML 999 ML IV (15:10)
[2025-03-15] MEDS: FAMOTIDINE 20MG/2ML VIAL 20 MG IV (15:10)
[2025-03-15] MEDS: SODIUM CHLORIDE 0.9% 10ML VIAL 8 ML IV (15:11)
[2025-03-15] MEDS: ONDANSETRON 4MG/2ML VIAL 4 MG IV (15:11)
[2025-03-15 15:20] LABS: Alanine Aminotransferase 25 U/L (12-78); Albumin Level 4.7 g/dl (3.5-5.0); Albumin/Globulin Ratio 1.6 (1.1-1.8); Alkaline Phosphatase 69 U/L (38-126); Anion Gap 9.2 mEq/L (5-15); Aspartate Amino Transferase 32 U/L (14-36); Bilirubin,Total 0.9 mg/dl (0.2-1.3); Blood Urea Nitrogen 11 mg/dl (7-17); Carbon Dioxide 26 mmol/L (22.0-30.0); Chloride 103 mmol/L (98-107); Creatinine Clearance Estimated 123 mL/min (50-200); Estimated Glomerular Filt Rate 68 ml/min (>60); GFR (African American) 82 ML/MIN (>60); Glucose 92 mg/dl (74-100); Lipase 30 U/L (23-300); Magnesium 1.9 mg/dl (1.6-2.3); Potassium 3.2 mmoL/L (3.5-5.1); Sodium 135 mmol/L (136-145); Total Protein,Serum 7.7 g/dl (6.3-8.2)
[2025-03-15 15:23] LABS: Coronavirus 19, PCR Not Detected (NotDetected); Influenza A, PCR Not Detected (NotDetected); Influenza B, PCR Not Detected (NotDetected)
[2025-03-15 15:47] LABS: Microscopic, Urine URINE MICROSCOPIC (MICROSCOPIC)
[2025-03-15 15:48] LABS: Appearance,Urine CLOUDY (Clear); Blood, Urine Negative (Negative); Color,Urine YELLOW (Yellow); Glucose,Urine (UA) Negative (Negative); Ketones,Urine TRACE (Negative); Leukocyte Esterase,Urine Negative (Negative); Nitrate,Urine Negative (Negative); Protein,Urine 1+ (Negative); Specific Gravity, Urine 1.025 (1.005-1.030); Urobilinogen,Urine 0.2 EU/dl (0.2)
[2025-03-15 15:53] LABS: Bilirubin,Urine Negative (Negative)
[2025-03-15 16:03] LABS: Bacteria,Urine 4+ /lpf; Mucus,Urine 4+ /lpf; Squamous Epithelial Cell,Urine 20-50 #/hpf (0-5)
[2025-03-15] MEDS: METOCLOPRAMIDE HCL 10MG/2ML VIAL 10 MG IVP (17:43)
[2025-03-15] MEDS: diphenhydrAMINE 50MG/ML VIAL 25 MG IV (17:43)
== END 2025-03-15 19:24 | disposition home or self-care (01) ==
PROVIDERS: Nurse Practitioner; Emergency Provider Student in an Organized Health Care Education/Training Program; PCP Family Medicine
DX: R11.2 Nausea with vomiting, unspecified (principal); E87.6 Hypokalemia; R50.9 Fever, unspecified; R19.7 Diarrhea, unspecified
CPT/HCPCS: 80053; 81001; 83690; 83735; 85025; 87086; 87636; 96361; 96374; 96375; 99284; J1200; J2405; J2765; J7030

== ENCOUNTER 2025-06-13 02:45 | Observation (INO) | payer OTHER, SELFPAY ==
[2025-06-13] VITALS (21 sets, daily range): BP systolic 92–139; BP diastolic 50–80; PULSE 54–76; RESP 12–18; TEMP 36.3–37.2; O2SAT 99–100; BMI 29.5
--- OUTSIDE RECORDS SUMMARY | 2025-06-13 02:51 | XMS_ITS | Clinical Summary ---
[facility] Organization [facility] Address [address] [place] [address] Care Team Providers Care Inspector Watch Parts Name Role Phone Provider, No Known Primary Care Provider Unavail able Allergies Active Allergy Reactions Criticality Noted Date Comments Amoxicillin Hives High 12/27/2022 Penicillins Hives High 12/27/2022 Medications FeroSul 325 (65 Fe) MG tablet Take 1 tablet by mouth Daily. 12/13/2022 Active Vit-Fe Fumarate-FA (WesTab Plus) 27-1 MG tablet Take 1 tablet by mouth Daily. 10/06/2022 Active Active Problems Problem Noted Date Diagnosed Date Choroid plexus cyst of fetus affecting care of mother, antepartum 12/27/2022 Family history of heart murmur 12/27/2022 Social History Tobacco Use Types Packs/Day Years Used Date Smoking Tobacco: Former Cigarettes 1 7 1 10/31/2014 - 08/31/2022 Smokeless Tobacco: Never Alcohol Use Standard Drinks/Week Comments Never 0 (1 standard drink = 0.6 oz pur e alcohol) Abuse Screen Answer Date Recorded Unsafe at Home or Work/School Not on file Feels Threatened by Someone? Not on file Does Anyone Keep You from Co ntacting Others or Doint Things Outside the Home? Not on file 07/22/2023 Physical Sign of Abuse Present Not on file 1 Housing Stability Answer Date Recorded Current Living Arrangements Not on file 07/10 Potentially Unsafe Housing Conditions Not on syed e 07/22/2023 Family and Community Support Answer Roberto e Recorded Help with Day-to-Day Activities Not on file 07/22/2023 Lonely or Isolated Not on file 07/22/2023 Employment Answer Date Recorded Do you want help finding or keeping work or a tyron b? Not on file 07/22/2023 Disabilities Answer Date Recorded Concentrating, Remembering, or Making Decisions Difficulty Not on file 07/22/2023 Doing Errands Independently Difficulty Not on fi le 07/22/2023 Education Answer Date Recorded Help with school or training? Not on file Preferred Language Not on file 07/22/2023 Comments No Sex and Gender Information Value Date Recorded Sex Assigned at Not on file Legal Sex Female 9:05 AM EDT Gender Identity Not on file Sexual Orientation Not on file Last Filed Vital Signs Vital Sign Reading Time Taken Comments Blood Pressure 103/57 12/27/2022 10:41 AM EDT Pulse - - Temperature - - Respiratory Rate - - Oxygen Saturation - - Inhaled Oxygen Concentration - - Weight 91.9 kg (202 lb 9.6 oz) 12/27/2022 10:41 AM EDT Height 171.5 cm (5' 7.5 ) 12/27/2022 10:44 AM ED T Body Mass Index 31.26 12/27/2022 10:41 AM EDT Plan of Treatment Health Maintenance Due Date Last Done Comments Annual Gynecologic Pelvic an d Breast Exam 1999 HPV VACCINES (1 - 3-dose series) 12/16/2014 TDAP/TD VACCINES (1 - Tdap) 12/16/2018 PAP SMEAR 12/16/2020 ANNUAL PHYSICAL 12/14/2022 HEPATITIS C SCREENING 12/14/2022 COVID-19 Vaccine (1 - 2023-2 5 season) 2024 INFLUENZA VACCINE 07/10/2025 Pneumococcal Vaccine 0-49 Aged Out No longer eligible based on patient's age to complete this topic Insurance [employer] [facility] Care Teams Inspector Watch Parts Relationship Specialty Start Date End Date Provider, [place] [address] PCP - General 12/14/22
--- OUTSIDE RECORDS SUMMARY | 2025-06-13 02:51 | XMS_ITS | Clinical Summary ---
Author Organization [facility] Address [address] [place] [address] Care Team Providers Care Driver License Reviewing Officer Name Role Phone Unavailable Primary Care Provider [...] 19+ 3-dose series) 12/16/2018 [facility]-Pap Smear 12/16/2020 [id number] Vaccine (1 - 20 24-25 season) 2024 [facility]-Influenza Vaccine (#1) 2025 [facility]-Zoster Vaccines (1 of 2) 12/16/2049 [...]
--- NOTE | 2025-06-13 03:09 | CT_ITS ---
PROCEDURE INFORMATION: Exam: CT Abdomen And Pelvis With Contrast Exam date and time: 06/13/2025 3:44 AM Age: 24 years old Clinical indication: Abdominal pain; Additional info: Ruq pain n/v TECHNIQUE: Imaging protocol: Computed tomography of the abdomen and pelvis with contrast. Radiation optimization: All CT scans at this facility use at least one of these dose optimization techniques: automated exposure control; mA and/or kV adjustment per patient size (includes targeted exams where dose is matched to clinical indication); or iterative reconstruction. Contrast material: ISOVUE; Contrast volume: 75 ml; Contrast route: IV; COMPARISON: CT ABDOMEN PELVIS W CON 05/31/2023 11:51 PM FINDINGS: Liver: Normal. No mass. Gallbladder and biliary ducts: Normal. No calcified stones. No ductal dilation. Pancreas: Normal. No ductal dilation. Spleen: Normal. No splenomegaly. Adrenal glands: Normal. No mass. Kidneys and ureters: Normal. No hydronephrosis. Stomach and bowel: Unremarkable. No obstruction. No mucosal thickening. Appendix: The appendix is within normal limits. Intraperitoneal space: Unremarkable. No free air. No significant fluid collection. Vasculature: Unremarkable. No abdominal aortic aneurysm. Lymph nodes: There is a cluster of small lymph nodes seen in the right lower quadrant mesentery that measure up to 8 mm in short axis. Urinary bladder: Unremarkable as visualized. Reproductive: Unremarkable as visualized. Bones/joints: Unremarkable. No acute fracture. Soft tissues: Unremarkable. IMPRESSION: Cluster of mildly prominent right lower quadrant mesenteric lymph nodes consistent with acute mesenteric lymphadenitis.
[2025-06-13 03:15] LABS: Hematocrit 39.3 % (37.0-47.0); Hemoglobin 13.7 g/dL (12.2-16.2); Immature Granulocytes % 0.3 %; Mean Corpuscular HGB Conc 34.9 g/dL (31.8-35.4); Mean Corpuscular Hemoglobin 29.2 pg (27.0-31.2); Mean Corpuscular Volume 83.8 fl (81-99); Nucleated Red Blood Cells % 0 %; Platelet Count 307 K/mm3 (142-424); Red Blood Count 4.69 M/mm3 (4.20-5.40); Red Cell Distribution Width-SD 36.5 fL; White Blood Count 7.9 K/mm3 (4.8-10.8)
[2025-06-13 03:16] LABS: Microscopic, Urine URINE MICROSCOPIC (MICROSCOPIC)
[2025-06-13 03:18] LABS: Bilirubin,Urine Negative (Negative); Color,Urine YELLOW (Yellow); Glucose,Urine (UA) Negative (Negative); Ketones,Urine Negative (Negative); Leukocyte Esterase,Urine Negative (Negative); PH,Urine 7.5 (5.0-8.5); Protein,Urine Negative (Negative); Specific Gravity, Urine 1.015 (1.005-1.030); Urobilinogen,Urine 0.2 EU/dl (0.2)
[2025-06-13] MEDS: MORPHINE 4MG/ML SYRINGE 4 MG IV (03:19)
[2025-06-13] MEDS: ONDANSETRON 4MG/2ML VIAL 4 MG IV ×2 (03:19→14:40)
[2025-06-13 03:21] LABS: Lipase 214 U/L (23-300)
[2025-06-13 03:23] LABS: INR 0.95 (0.9-1.1); Prothrombin Time 10.6 seconds (10.1-12.5)
[2025-06-13 03:26] LABS: HCG Qualitative, Serum Negative (Negative)
[2025-06-13 03:31] LABS: Chloride 106 mmol/L (98-107)
[2025-06-13 03:32] LABS: Albumin Level 4.7 g/dl (3.5-5.0); Potassium 3.6 mmoL/L (3.5-5.1); Sodium 139 mmol/L (136-145)
[2025-06-13 03:32] LABS: Bacteria,Urine Trace /lpf; WBC,Urine Occasional #/hpf (0-3)
[2025-06-13 03:34] LABS: Blood Urea Nitrogen 11 mg/dl (7-17); Creatinine Clearance Estimated 154 mL/min (50-200); Creatinine,Serum 0.80 mg/dl (0.52-1.04); Estimated Glomerular Filt Rate 87 ml/min (>60); GFR (African American) 106 ML/MIN (>60); Troponin I < 0.01 ng/ml (0.00-0.034)
[2025-06-13 03:35] LABS: Alanine Aminotransferase 16 U/L (12-78); Albumin/Globulin Ratio 2.0 (1.1-1.8); Alkaline Phosphatase 85 U/L (38-126); Anion Gap 13.6 mEq/L (5-15); Aspartate Amino Transferase 32 U/L (14-36); Bilirubin,Total 0.3 mg/dl (0.2-1.3); Calcium 9.1 mg/dl (8.4-10.2); Carbon Dioxide 23 mmol/L (22.0-30.0); Globulin 2.3 g/dL (1.3-3.2); Glucose 104 mg/dl (74-100); Total Protein,Serum 7.0 g/dl (6.3-8.2)
[2025-06-13] MEDS: SODIUM CHLORIDE 0.9% 10ML SYR (RAD ONLY) 10 ML IV (03:51)
[2025-06-13] MEDS: IOPAMIDOL-370 (76%);100ML BOTTLE 75 ML IV (03:51)
--- NOTE | 2025-06-13 03:56 | HMH.EDGENADL ---
Discharge Plan Disposition Patient Disposition: Admitted Condition: Fair Prescriptions Prescriptions: No Action diclofenac sodium 1 % gel 4 g topical QID PRN (Reason: pain ) 30 Days Qty: 100 2RF Rx Instructions: apply to single, ankle, foot; for foot includes sole/toes/top of foot terbinafine HCl [Lamisil AT] 1 % cream 1 applic topical BID 14 Days Qty: 30 0RF fluticasone propionate [Flonase Allergy Relief] 50 mcg/actuation spray,suspension 1 spray intranasal BID PRN (Reason: nasal congestion) Qty: 16 0RF Rx Instructions: administer into each nostril cetirizine 10 mg tablet 10 mg PO DAILY PRN (Reason: allergy symptoms) Qty: 10 0RF potassium chloride 10 mEq capsule, extended release 10 meq PO BID Qty: 10 0RF ondansetron 4 mg tablet,disintegrating 4 mg PO Q6HP PRN (Reason: nausea and vomiting) 5 Days Qty: 5 0RF Referrals Follow up/Referrals: Provider,Referral, MD [Primary Care Provider, Medical] - See instructions Clinical Impressions Clinical Impression: Cholelithiasis, Acute cholecystitis Instructions Patient Instructions: DI for Acute Abdominal Pain Print Language Print Language: Estonian Discharge ED Provider: Kendra Garza General Adult HPI General Chief complaint: Abdominal Pain Stated complaint: sharp pain R abd, n/v Time Seen by Provider: 06/13/25 03:04 Mode of Arrival: Ambulatory Source of Information: Patient Description of Symptoms (Recalled from ER Triage Doc. by RN): Pt presents to the ED for evaluation of LRQ pain. PT stated it started on 06/12/2025 at 2330. Stated she has her appendix and gallbladder. PT stated she has a hx of constipation, PT stated she has diarrhea at this time. Vomited x1 on this date. History of Present Illness HPI narrative: 24-year-old female presents to the ER with right upper quadrant abdominal pain. Patient reports symptoms started a few hours prior to arrival. She has never had her gallbladder or appendix removed. She does have a history of constipation but is having diarrhea at this time. She vomited 1 time having nonbloody, nonbilious emesis. She reports no fevers or chills. She states she ate a few hours prior to her symptoms starting and was just having chips and gas station snacks at that time. She has never had symptoms like this before. She has no chest pain but states it hurts worse in her right upper quadrant when she takes deep breath. No dysuria or hematuria. No other complaints or concerns. Related Data Previous Rx's ?Medication ?Instructions ?Recorded diclofenac sodium 1 % topical gel 4 g topical QID PRN pain 30 days 05/21/24 #100 grams cetirizine 10 mg tablet 10 mg PO DAILY PRN allergy 02/28/25 symptoms #10 tabs fluticasone propionate 50 1 spray intranasal BID PRN nasal 02/28/25 mcg/actuation nasal congestion #16 grams spray,suspension (Flonase Allergy Relief) terbinafine HCl 1 % topical cream 1 applic topical BID 14 days #30 02/28/25 (Lamisil AT) grams ondansetron 4 mg disintegrating 4 mg PO Q6HP PRN nausea and 03/15/25 tablet vomiting 5 days #5 tabs potassium chloride 10 mEq 10 meq PO BID #10 caps 03/15/25 capsule,extended release Allergies Allergy/AdvReac Type Severity Reaction Status Date / Time amoxicillin Allergy Mild Hives Verified 02/28/25 20:37 Penicillins Allergy Mild hives Verified 02/28/25 20:37 [facility] Disclaimer: The information contained in this section may have been updated after the patient was seen, as this information can be updated by other users. 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 Abnormal electrocardiogram [ECG] [EKG] Sinus tachycardia Choroid plexus cyst Gastroenteritis Left flank pain Surgical History History of bilateral salpingectomy Family History Other No significant family history Social History Smoking Status: Current every day smoker tobacco type: e-cigarettes alcohol intake: never substance use type: denies use current occupational status: unemployed Travel in the last 8 weeks?: None household members: children housing: apartment caffeine: Yes do you feel safe at home: Yes victim of physical abuse: No victim of emotional abuse: No victim of sexual abuse: No Have you lived/traveled outside US in past 30 days?: No Contact w/someone who lives/traveled outside US past 30 days?: No Exposure to someone with infectious disease in past 14 days?: No Do you have a fever (greater than 100.4 F or 38 C)?: No Have you tested positive for COVID-19?: No Exposed to someone with COVID-19 in past 14 days?: No Do you have a sore throat?: No Do you have a cough?: No Do you have any weakness?: No Do you have any diarrhea?: No Are you experiencing any unusual bleeding?: No Do you have any muscle aches/pain?: No Do you have any abdominal pain?: Yes Are you experiencing loss of taste or smell?: No Other 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 Have you received the Flu Vaccine for this season: No Have you received the Pneumonia Vaccine: No ROS Obtained: Yes Systems reviewed as appropriate & no additional complaints except as documented Per HPI Physical Exam General General appearance: alert Comment: Obviously in pain but nontoxic-appearing Head Head exam: atraumatic and normocephalic Eye Eye exam: Present PERRL and EOMI ENT ENT exam: Present mucous membranes moist Neck Neck exam: Present normal inspection and full ROM Chest Chest inspection: Present symmetric chest wall rise Respiratory Respiratory exam: Present normal lung sounds bilaterally; Absent respiratory distress, wheezes or stridor Cardiovascular Cardiovascular exam: Present regular rate and normal rhythm Abdominal Exam Abdominal exam: Present soft, tenderness (Right upper quadrant), guarding (Voluntary) and Walker's sign; Absent distention or rebound Extremities Exam Extremities exam: Present full ROM Neurological Exam Neurological exam: Present alert and oriented X3; Absent motor sensory deficit Psychiatric Psychiatric exam: Present normal affect and normal mood Skin Skin exam: Present warm and dry Medical Decision Making Medical Records Medical records reviewed: Yes I reviewed the patient's medical records. Screening: Per USPSTF and CDC recommendations, given the prevalence of disease in our region, it is our hospital?s policy to screen for HIV and viral Hepatitis for all patients aged 18 and over and those with ongoing risk factors. Maged Inquiry Pt receiving controlled substance: No Vital Signs: 06/13/25 02:56 Temperature 97.9 F Temperature Source Oral Pulse Rate [Right] 65 Respiratory Rate 16 Blood Pressure [Right Arm] 112/74 Blood Pressure Mean [Right Arm] 86 02 Sat by Pulse Oximetry 100 Oxygen Delivery Method Room Air Lab Data Lab Results 06/13/25 02:54: Urine Color Yellow, Urine Appearance Clear, Urine pH 7.5, Ur Specific Sherwood 1.015, Urine Protein Negative, Urine Glucose (UA) Negative, Urine Ketones Negative, Urine Blood Negative, Urine Nitrate Negative, Urine Bilirubin Negative, Urine Urobilinogen 0.2, Ur Leukocyte Esterase Negative, Urine RBC None, Urine WBC Occasional, Ur Squamous Epith Cells 3-5, Urine Bacteria Trace 06/13/25 03:06: WBC 7.9, RBC 4.69, Hgb 13.7, Hct 39.3, MCV 83.8, MCH 29.2, MCHC 34.9, RDW 12.1, Plt Count 307, MPV 9.8, Neut % (Auto) 34.7 L, Lymph % (Auto) 55.6 H, Hood % (Auto) 5.7, Eos % (Auto) 2.8, Baso % (Auto) 0.9, Neut # (Auto) 2.8, Lymph # (Auto) 4.4, Hood # (Auto) 0.5, Eos # (Auto) 0.2, Baso # (Auto) 0.1, PT 10.6, INR 0.95, Sodium 139, Potassium 3.6, Chloride 106, Carbon Dioxide 23, Anion Gap 13.6, BUN 11, Creatinine 0.80, Estimated Creat Clear 154, Estimated GFR 87, Est GFR ( Amer) 106, Glucose 104 H, Calcium 9.1, Total Bilirubin 0.3, AST 32, ALT 16, Alkaline Phosphatase 85, Troponin I < 0.01, Total Protein 7.0, Albumin 4.7, Globulin 2.3, Albumin/Globulin Ratio 2.0 H, Lipase 214, Serum HCG, Qual Negative 06/13/25 03:20: Lactate 1.4 06/13/25 03:06 06/13/25 03:06 Orders (Tests/Meds): ED MEDICATIONS Generic Name Dose Route Start Last Admin Trade Name Freq PRN Reason Stop Dose Admin Sodium Chloride 10 ml 06/13/25 03:50 06/13/25 03:51 Sodium Chloride 0.9% 10ml Syr (Rad Only) IV 07/13/25 03:49 10 ml NEEDED PRN Administration Maintain IV Site Discontinued Medications Generic Name Dose Route Start Last Admin Trade Name Freq PRN Reason Stop Dose Admin Iopamidol 75 ml 06/13/25 03:50 06/13/25 03:51 Iopamidol-370 (76%);100ml Bottle IV 06/13/25 03:51 75 ml ONCE ONE Administration Morphine Sulfate 4 mg 06/13/25 03:09 06/13/25 03:19 Morphine 4mg/Ml Syringe IV 06/13/25 03:10 4 mg ONCE ONE Administration Ondansetron HCl 4 mg 06/13/25 03:09 06/13/25 03:19 Ondansetron 4mg/2ml Vial IV 06/13/25 03:10 4 mg ONCE ONE Administration ORDERS Category Date Time Status CT abdomen pelvis w con Stat Cat Scan 06/13/25 03:09 Taken POCUS Point of Care (ER Only) Stat Exams 06/13/25 03:11 Ordered Complete Blood Count Auto Diff Stat Lab 06/13/25 03:06 Completed Comprehensive Metabolic Panel Stat Lab 06/13/25 03:06 Completed HCG Qualitative, Serum Stat Lab 06/13/25 03:06 Completed Lactic Acid Stat Lab 06/13/25 03:20 Completed Lipase Stat Lab 06/13/25 03:06 Completed Prothrombin Time INR Stat Lab 06/13/25 03:06 Completed Troponin I Q3H Lab 06/13/25 06:15 Ordered Troponin I Q3H Lab 06/13/25 09:15 Ordered Troponin I Stat Lab 06/13/25 03:06 Completed Urinalysis and Microscopic Stat Lab 06/13/25 02:54 Completed ECG Request Stat Y 06/13/25 03:09 Ordered Medical Decision Narrative: In summary, this 24-year-old female presents to the emergency department today with right upper quadrant abdominal pain, nausea, vomiting. On initial evaluation patient is hemodynamically stable, afebrile, appears uncomfortable but nontoxic, she has positive Walker sign, right upper quadrant tenderness with voluntary guarding but no rebound, remainder of exam is benign. Differential diagnosis includes but is not limited to cholelithiasis, cholecystitis, pancreatitis, bowel obstruction, viral syndrome, mesenteric adenitis, among other. Based on these concerns, I ordered hematologic and serum labs, CT imaging, POCUS, urinalysis, test ECG personally interpreted demonstrates sinus bradycardia, rate 50, normal axis, normal WI and QTc, no STEMI Patient received morphine and Zofran initially for treatment. Labs personally reviewed demonstrate no leukocytosis or anemia, normal platelets, PT/INR normal, CMP nonactionable, lipase normal, hCG negative, UA negative for findings of infection. CT abdomen pelvis personally interpreted demonstrates distended gallbladder, see radiology read for final interpretation. [id number] ultrasound personally performed and interpreted demonstrates distended gallbladder with sludge and stones but no pericholecystic fluid. See procedure note for details. Patient has had some improvement of symptoms since receiving pain and nausea medications. After discussing results with her and evidence of cholelithiasis and cholecystitis, I recommended admission for further treatment and surgical intervention. She is agreeable to this. I discussed this case with the hospitalist who graciously accepted the patient for admission. We discussed that since patient is afebrile and has no leukocytosis I will not be administering antibiotics at this time. She was admitted in stable condition. Patient is n.p.o. Procedures Miscellaneous Procedure Procedure Performed: Limited RUQ ultrasound Indication: Abdominal pain, nausea, vomiting Identified structures: -Gallbladder -Gallbladder wall -Common bile duct not able to be visualized secondary to poor acoustic windows -Liver Findings: Sonographic Walker sign: Present Gallstones: Present Sludge: Present Pericholecystic fluid: Absent Maximal GB wall thickness (mm): [normal is </= 3mm] 2.2 mm, normal Common bile duct width (mm): [normal is </= 6mm] Unable to be measured Gallbladder width (cm): [normal is < 4cm] 4.6 cm, abnormal Gallbladder length (cm): [normal is < 10cm] 8.8 cm, normal Impression: Cholelithiasis, cholecystitis, distended gallbladder Images were saved to permanent archive The study was technically adequate CPT 95532-11 This study was performed by me, and I personally interpreted all images/videos. Based on my clinical judgement, these images were adequate and did not necessitate further imaging. Critical Care Critical Care Time Critical Care Time: No
--- NOTE | 2025-06-13 04:23 | ECG_ITS ---
APPROVED REPORT Exam: Resting ECG HR:50 bpm ECG Measurements Heart Rate 50 AXES GA 153 P 45 QRSd 98 QRS 63 QT 431 T 59 QTc 406 Conclusion SINUS BRADYCARDIA BORDERLINE ECG No STEMI Electronically signed by : DARRYL ORNELAS, 06/14/2025 06:16:15
--- NOTE | 2025-06-13 04:35 | PC.NURSE ---
Report called to JAIMIE Julien
--- NOTE | 2025-06-13 04:50 | PC.NURSE ---
Patient arrived to floor via wheelchair from ED at 04:49.
[2025-06-13] MEDS: KETOROLAC 30MG/ML VIAL 30 MG IV ×2 (05:11→15:09)
--- NOTE | 2025-06-13 05:24 | P.HP_ITS ---
<Statement entered by Parveen Pineda MD - 06/13/25 08:00> Rounded on patient after nurse practitioner. Personally examined and interviewed patient. Agree with exam findings and care plan as documented. History of Present Illness *Admission Date: 06/13/25 *Reason for visit:: Abdominal pain *History of present illness: Ms. Grant is a 24-year-old female who presents for complaint of abdominal pain. Patient denies any past medical history. She reports abdominal pain, nausea, vomiting, diarrhea starting yesterday. She reports vomiting twice and 2 loose stools. She states she did feel lightheaded like she would pass out. She also reports shortness of breath with increased pain. She reports her pain is a 4 out of 10 and describes it as sharp. She states it is constant. States nothing makes it worse but pain medication makes it better. Last time she had anything to eat or drink was 2100 yesterday. Patient denies fever/chills, cough, congestion, runny nose, chest pain, constipation, headache, dizziness, or syncope. [facility] Disclaimer: The information contained in this section may have been updated after the patient was seen, as this information can be updated by other users. 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 Abnormal electrocardiogram [ECG] [EKG] Sinus tachycardia Choroid plexus cyst Gastroenteritis Left flank pain Surgical History History of bilateral salpingectomy Family History Other No significant family history Social History Smoking Status: Current every day smoker tobacco type: e-cigarettes alcohol intake: never substance use type: denies use current occupational status: unemployed Travel in the last 8 weeks?: None household members: children housing: apartment caffeine: Yes do you feel safe at home: Yes victim of physical abuse: No victim of emotional abuse: No victim of sexual abuse: No Have you lived/traveled outside US in past 30 days?: No Contact w/someone who lives/traveled outside US past 30 days?: No Exposure to someone with infectious disease in past 14 days?: No Do you have a fever (greater than 100.4 F or 38 C)?: No Have you tested positive for COVID-19?: No Exposed to someone with COVID-19 in past 14 days?: No Do you have a sore throat?: No Do you have a cough?: No Do you have any weakness?: No Do you have any diarrhea?: No Are you experiencing any unusual bleeding?: No Do you have any muscle aches/pain?: No Do you have any abdominal pain?: Yes Are you experiencing loss of taste or smell?: No Other 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 Have you received the Flu Vaccine for this season: No Have you received the Pneumonia Vaccine: No Review of Systems Constitutional Constitutional: Denies chills, Denies fever(s) and Denies headache(s) ENT Ears, Nose, Mouth, and Throat: Denies dizziness and Denies headache(s) *Cardiovascular Cardiovascular: Denies chest pain, Reports dyspnea (with increased pain) and Reports lightheadedness *Respiratory Respiratory: Denies cough and Reports dyspnea (with increased pain) *Gastrointestinal Gastrointestinal: Reports abdominal pain, Denies constipation, Reports loose stools, Reports nausea and Reports vomiting *Genitourinary Genitourinary: Reports system reviewed and no additional complaints, except as documented *Musculoskeletal Musculoskeletal: Reports system reviewed and no additional complaints, except as documented *Neurologic Neurologic: Denies dizziness and Denies headache(s) Meds Home Medications and Allergies Home Medications ?Medication ?Instructions ?Recorded ?Confirmed ?Type No Known Home Medications 06/13/2502/01 History New Prescriptions to Start Prescriptions: Allergies Allergy/AdvReac Type Severity Reaction Status Date / Time amoxicillin Allergy Mild Hives Verified 02/28/25 20:37 Penicillins Allergy Mild hives Verified 02/28/25 20:37 Exam Data for Last 24 hours Vital signs and Labs for Last 24 Hours: Temp Pulse Resp BP Pulse Ox O2 Del Method 98.9 F 65 16 99/50 L 99 Room Air 06/13/25 04:30 06/13/25 04:31 06/13/25 04:31 06/13/25 04:31 06/13/25 04:31 06/13/25 04:31 Laboratory Results - last 24 hr 06/13/25 02:54: Urine Color Yellow, Urine Appearance Clear, Urine pH 7.5, Ur Specific [place] 1.015, Urine Protein Negative, Urine Glucose (UA) Negative, Urine Ketones Negative, Urine Blood Negative, Urine Nitrate Negative, Urine Bilirubin Negative, Urine Urobilinogen 0.2, Ur Leukocyte Esterase Negative, Urine RBC None, Urine WBC Occasional, Ur Squamous Epith Cells 3-5, Urine Bacteria Trace 06/13/25 03:06: WBC 7.9, RBC 4.69, Hgb 13.7, Hct 39.3, MCV 83.8, MCH 29.2, MCHC 34.9, RDW 12.1, Plt Count 307, MPV 9.8, Neut % (Auto) 34.7 L, Lymph % (Auto) 55.6 H, [place] % (Auto) 5.7, Eos % (Auto) 2.8, Baso % (Auto) 0.9, Neut # (Auto) 2.8, Lymph # (Auto) 4.4, [place] # (Auto) 0.5, Eos # (Auto) 0.2, Baso # (Auto) 0.1, PT 10.6, INR 0.95, Sodium 139, Potassium 3.6, Chloride 106, Carbon Dioxide 23, Anion Gap 13.6, BUN 11, Creatinine 0.80, Estimated Creat Clear 154, Estimated GFR 87, Est GFR ( Amer) 106, Glucose 104 H, Calcium 9.1, Total Bilirubin 0.3, AST 32, ALT 16, Alkaline Phosphatase 85, Troponin I < 0.01, Total Protein 7.0, Albumin 4.7, Globulin 2.3, Albumin/Globulin Ratio 2.0 H, Lipase 214, Serum HCG, Qual Negative 06/13/25 03:20: Lactate 1.4 I & O for Last 24 hours: Intake & Output 06/10/25 06/11/25 06/12/25 06/13/25 23:59 23:59 23:59 23:59 Weight 90.718 kg *Routine HEENT Exam Head: Present normocephalic and atraumatic Eye: Present EOMI and PERRL ENT: Present mucous membranes moist and oropharynx clear *Routine Neck Exam Neck: Present supple and full ROM *Routine Respiratory Exam Respiratory: Present CTA bilaterally, normal respiratory effort, able to speak in complete sentences and symmetric chest movement; Absent accessory muscle use, rales, respiratory distress, rhonchi, wheezes or crackles *Routine Cardiovascular Exam Cardiovascular: Present RRR, Normal S1 and Normal S2 *Routine Abdominal Exam Abdominal: Present soft, normoactive bowel sounds and tenderness (Right upper and lower quadrants) *Routine Rectal Exam Rectal:: deferred *Routine Genitalia Exam Genitalia:: deferred *Routine Extremities Exam Extremities: Present full ROM, pulses intact and normal capillary refill; Absent edema *Routine Skin Exam Skin: Present intact, dry and warm; Absent erythema *Routine Neurological Exam Neurological: Present alert, oriented X3 and CN II-XII intact Assessment and Plan *Assessment and plan (1) Acute cholecystitis: Status: Acute Category: Medical Code(s): K81.0 - Acute cholecystitis Plan: Consult general surgery Monitor CBC and CMP (2) Abdominal pain: Status: Acute Category: Medical Code(s): R10.9 - Unspecified abdominal pain Plan: Dilaudid 0.5 mg IV every 4 hours as needed for severe pain (3) Nausea and vomiting: Status: Acute Qualifiers: Vomiting type: unspecified Qualified Code(s): R11.2 - Nausea with vomiting, unspecified Category: Medical Code(s): R11.2 - Nausea with vomiting, unspecified Plan: Zofran 4 mg every 8 hours as needed for nausea vomiting (4) Diarrhea: Status: Acute Qualifiers: Diarrhea type: unspecified type Qualified Code(s): R19.7 - Diarrhea, unspecified Category: Medical Code(s): R19.7 - Diarrhea, unspecified Plan: Monitor BMP for electrolyte loss and need for replacement Plan Spoke with [facility] provider, decision to admit based on CT findings of cholecystitis/cholelithiasis and need for general surgery evaluation. Labs on presentation with normal white count of 7.9, hemoglobin 13.7. Bilirubin 0.3, AST 32, ALT 16, alk phos 85. Does not appear to have obstructive pathology. Repeat CBC, CMP, magnesium ordered for the morning. Per my review of CT, has gallstones but also noted to have mesenteric adenitis in right lower abdomen. Differential includes gastroenteritis, mesenteric adenitis, cholecystitis. Low surgery reevaluate in the morning and monitor abdominal pain . Low concern for urgent surgical intervention needed at this time. Will consider advancing diet in the morning pending surgery recommendations. Right upper quadrant ultrasound ordered for the morning.
[2025-06-13] MEDS: 0.9 % SODIUM CHLORIDE 1000ML 1,000 ML 100 ML IV (05:46)
[2025-06-13 06:05] LABS: Hematocrit 37.8 % (37.0-47.0); Hemoglobin 12.4 g/dL (12.2-16.2); Immature Granulocytes % 0.5 %; Mean Corpuscular HGB Conc 32.8 g/dL (31.8-35.4); Mean Corpuscular Hemoglobin 28.2 pg (27.0-31.2); Mean Corpuscular Volume 85.9 fl (81-99); Nucleated Red Blood Cells % 0 %; Platelet Count 262 K/mm3 (142-424); Red Blood Count 4.40 M/mm3 (4.20-5.40); Red Cell Distribution Width-SD 38.1 fL; White Blood Count 8.7 K/mm3 (4.8-10.8)
[2025-06-13 06:25] LABS: Alanine Aminotransferase 16 U/L (12-78); Albumin Level 4.0 g/dl (3.5-5.0); Albumin/Globulin Ratio 1.7 (1.1-1.8); Alkaline Phosphatase 78 U/L (38-126); Anion Gap 12.7 mEq/L (5-15); Aspartate Amino Transferase 25 U/L (14-36); Blood Urea Nitrogen 9 mg/dl (7-17); Calcium 8.8 mg/dl (8.4-10.2); Carbon Dioxide 25 mmol/L (22.0-30.0); Chloride 105 mmol/L (98-107); Creatinine Clearance Estimated 154 mL/min (50-200); Creatinine,Serum 0.80 mg/dl (0.52-1.04); Estimated Glomerular Filt Rate 87 ml/min (>60); GFR (African American) 106 ML/MIN (>60); Globulin 2.3 g/dL (1.3-3.2); Glucose 104 mg/dl (74-100); Potassium 3.7 mmoL/L (3.5-5.1); Sodium 139 mmol/L (136-145); Total Protein,Serum 6.3 g/dl (6.3-8.2)
[2025-06-13 06:33] LABS: Bilirubin,Total < 0.1 mg/dl (0.2-1.3)
[2025-06-13 07:04] LABS: Troponin I < 0.01 ng/ml (0.00-0.034)
--- NOTE | 2025-06-13 07:47 | US_ITS ---
FINAL REPORT CLINICAL HISTORY: eval gallbladder COMPARISON: None FINDINGS: Sonographic images of the right upper quadrant were obtained. The pancreas is partially obscured.The liver has an unremarkable appearance. Gallstones are present in the gallbladder. There is mild gallbladder wall thickening, between 4 and 5 mm in thickness, with trace pericholecystic fluid present. There is no evidence of biliary ductal dilatation.The common duct measures 4mm. Limited images of the right kidney are unremarkable. IMPRESSION: Multiple gallstones are present in the gallbladder with mild gallbladder wall thickening and trace pericholecystic fluid. In the appropriate clinical setting, this could represent early changes of cholecystitis. Reviewed, Interpreted and Dictated by Víctor Vazquez MD Transcribed by Rebecca De La Garza Authenticated and [facility]
--- NOTE | 2025-06-13 08:36 | EXP.SURG.CON ---
History of Present Illness *Admission Date: 06/13/25 *Reason for visit:: Possible cholecystitis *History of present illness: Is a 24-year-old female seen in consultation from the primary service for evaluation regarding possible cholecystitis. See HPI forwarded from admission H&P below. CT scan obtained in the emergency department revealed no obvious calcified stones or other biliary abnormality. A cluster of mildly prominent right lower quadrant mesenteric lymph nodes noted there were felt to be consistent with acute mesenteric lymphadenitis. Plan of care ultrasound in the emergency department revealed distended gallbladder with sludge and stones but no Eliud cholecystic fluid. Formal ultrasound pending Forwarded from admission H&P: Ms. Grant is a 24-year-old female who presents for complaint of abdominal pain. Patient denies any past medical history. She reports abdominal pain, nausea, vomiting, diarrhea starting yesterday. She reports vomiting twice and 2 loose stools. She states she did feel lightheaded like she would pass out. She also reports shortness of breath with increased pain. She reports her pain is a 4 out of 10 and describes it as sharp. She states it is constant. States nothing makes it worse but pain medication makes it better. Last time she had anything to eat or drink was 2100 yesterday. Patient denies fever/chills, cough, congestion, runny nose, chest pain, constipation, headache, dizziness, or syncope. [facility] Disclaimer: The information contained in this section may have been updated after the patient was seen, as this information can be updated by other users. 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 Abnormal electrocardiogram [ECG] [EKG] Sinus tachycardia Choroid plexus cyst Gastroenteritis Left flank pain Surgical History History of bilateral salpingectomy Family History Other No significant family history Social History Smoking Status: Current every day smoker tobacco type: e-cigarettes alcohol intake: never substance use type: denies use current occupational status: unemployed Travel in the last 8 weeks?: None household members: children housing: apartment caffeine: Yes do you feel safe at home: Yes victim of physical abuse: No victim of emotional abuse: No victim of sexual abuse: No Have you lived/traveled outside US in past 30 days?: No Contact w/someone who lives/traveled outside US past 30 days?: No Exposure to someone with infectious disease in past 14 days?: No Do you have a fever (greater than 100.4 F or 38 C)?: No Have you tested positive for COVID-19?: No Exposed to someone with COVID-19 in past 14 days?: No Do you have a sore throat?: No Do you have a cough?: No Do you have any weakness?: No Do you have any diarrhea?: No Are you experiencing any unusual bleeding?: No Do you have any muscle aches/pain?: No Do you have any abdominal pain?: Yes Are you experiencing loss of taste or smell?: No Review of Systems Review of Systems Review of systems:: pertinent systems reviewed and negative unless documented below Constitutional Constitutional: Denies headache(s) ENT Ears, Nose, Mouth, and Throat: Denies dizziness and Denies headache(s) *Gastrointestinal Gastrointestinal: Reports as per HPI *Neurologic Neurologic: Denies dizziness and Denies headache(s) Meds Home Medications and Allergies Home Medications ?Medication ?Instructions ?Recorded ?Confirmed ?Type No Known Home Medications 06/13/25 06/13/25 History New Prescriptions to Start Prescriptions: Allergies Allergy/AdvReac Type Severity Reaction Status Date / Time amoxicillin Allergy Mild Hives Verified 02/28/25 20:37 Penicillins Allergy Mild hives Verified 02/28/25 20:37 Exam (Inpt) Vital signs and Labs for Last 24 Hours: Temp Pulse Resp BP Pulse Ox O2 Del Method 98.9 F 65 16 99/50 L 99 Room Air 06/13/25 04:30 06/13/25 04:31 06/13/25 04:31 06/13/25 04:31 06/13/25 04:31 06/13/25 08:00 Laboratory Results - last 24 hr 06/13/25 02:54: Urine Color Yellow, Urine Appearance Clear, Urine pH 7.5, Ur Specific [place] 1.015, Urine Protein Negative, Urine Glucose (UA) Negative, Urine Ketones Negative, Urine Blood Negative, Urine Nitrate Negative, Urine Bilirubin Negative, Urine Urobilinogen 0.2, Ur Leukocyte Esterase Negative, Urine RBC None, Urine WBC Occasional, Ur Squamous Epith Cells 3-5, Urine Bacteria Trace 06/13/25 03:06: WBC 7.9, RBC 4.69, Hgb 13.7, Hct 39.3, MCV 83.8, MCH 29.2, MCHC 34.9, RDW 12.1, Plt Count 307, MPV 9.8, Neut % (Auto) 34.7 L, Lymph % (Auto) 55.6 H, [place] % (Auto) 5.7, Eos % (Auto) 2.8, Baso % (Auto) 0.9, Neut # (Auto) 2.8, Lymph # (Auto) 4.4, [place] # (Auto) 0.5, Eos # (Auto) 0.2, Baso # (Auto) 0.1, PT 10.6, INR 0.95, Sodium 139, Potassium 3.6, Chloride 106, Carbon Dioxide 23, Anion Gap 13.6, BUN 11, Creatinine 0.80, Estimated Creat Clear 154, Estimated GFR 87, Est GFR ( Amer) 106, Glucose 104 H, Calcium 9.1, Total Bilirubin 0.3, AST 32, ALT 16, Alkaline Phosphatase 85, Troponin I < 0.01, Total Protein 7.0, Albumin 4.7, Globulin 2.3, Albumin/Globulin Ratio 2.0 H, Lipase 214, Serum HCG, Qual Negative 06/13/25 03:20: Lactate 1.4 06/13/25 05:44: WBC 8.7, RBC 4.40, Hgb 12.4, Hct 37.8, MCV 85.9, MCH 28.2, MCHC 32.8, RDW 12.1, Plt Count 262, MPV 10.0, Neut % (Auto) 53.9, Lymph % (Auto) 36.7, [place] % (Auto) 5.7, Eos % (Auto) 2.4, Baso % (Auto) 0.8, Neut # (Auto) 4.7, Lymph # (Auto) 3.2, [place] # (Auto) 0.5, Eos # (Auto) 0.2, Baso # (Auto) 0.1, Sodium 139, Potassium 3.7, Chloride 105, Carbon Dioxide 25, Anion Gap 12.7, BUN 9, Creatinine 0.80, Estimated Creat Clear 154, Estimated GFR 87, Est GFR ( Amer) 106, Glucose 104 H, Calcium 8.8, Total Bilirubin < 0.1 L, AST 25, ALT 16, Alkaline Phosphatase 78, Troponin I < 0.01, Total Protein 6.3, Albumin 4.0 D, Globulin 2.3, Albumin/Globulin Ratio 1.7 I & O for Labs for Last 24 Hours: Intake & Output 06/10/25 06/11/25 06/12/25 06/13/25 11:59 11:59 11:59 11:59 Weight 200 lb Constitutional: no acute distress Respiratory: Absent respiratory distress Cardiac: Absent Tachycardia GI: Present soft and tenderness (Right upper quadrant) Results Labs 06/13/25 05:44 06/13/25 05:44 Labs: Laboratory Results - last 24 hr 06/13/25 02:54: Urine Color Yellow, Urine Appearance Clear, Urine pH 7.5, Ur Specific [place] 1.015, Urine Protein Negative, Urine Glucose (UA) Negative, Urine Ketones Negative, Urine Blood Negative, Urine Nitrate Negative, Urine Bilirubin Negative, Urine Urobilinogen 0.2, Ur Leukocyte Esterase Negative, Urine RBC None, Urine WBC Occasional, Ur Squamous Epith Cells 3-5, Urine Bacteria Trace 06/13/25 03:06: WBC 7.9, RBC 4.69, Hgb 13.7, Hct 39.3, MCV 83.8, MCH 29.2, MCHC 34.9, RDW 12.1, Plt Count 307, MPV 9.8, Neut % (Auto) 34.7 L, Lymph % (Auto) 55.6 H, [place] % (Auto) 5.7, Eos % (Auto) 2.8, Baso % (Auto) 0.9, Neut # (Auto) 2.8, Lymph # (Auto) 4.4, [place] # (Auto) 0.5, Eos # (Auto) 0.2, Baso # (Auto) 0.1, PT 10.6, INR 0.95, Sodium 139, Potassium 3.6, Chloride 106, Carbon Dioxide 23, Anion Gap 13.6, BUN 11, Creatinine 0.80, Estimated Creat Clear 154, Estimated GFR 87, Est GFR ( Amer) 106, Glucose 104 H, Calcium 9.1, Total Bilirubin 0.3, AST 32, ALT 16, Alkaline Phosphatase 85, Troponin I < 0.01, Total Protein 7.0, Albumin 4.7, Globulin 2.3, Albumin/Globulin Ratio 2.0 H, Lipase 214, Serum HCG, Qual Negative 06/13/25 03:20: Lactate 1.4 06/13/25 05:44: WBC 8.7, RBC 4.40, Hgb 12.4, Hct 37.8, MCV 85.9, MCH 28.2, MCHC 32.8, RDW 12.1, Plt Count 262, MPV 10.0, Neut % (Auto) 53.9, Lymph % (Auto) 36.7, [place] % (Auto) 5.7, Eos % (Auto) 2.4, Baso % (Auto) 0.8, Neut # (Auto) 4.7, Lymph # (Auto) 3.2, [place] # (Auto) 0.5, Eos # (Auto) 0.2, Baso # (Auto) 0.1, Sodium 139, Potassium 3.7, Chloride 105, Carbon Dioxide 25, Anion Gap 12.7, BUN 9, Creatinine 0.80, Estimated Creat Clear 154, Estimated GFR 87, Est GFR ( Amer) 106, Glucose 104 H, Calcium 8.8, Total Bilirubin < 0.1 L, AST 25, ALT 16, Alkaline Phosphatase 78, Troponin I < 0.01, Total Protein 6.3, Albumin 4.0 D, Globulin 2.3, Albumin/Globulin Ratio 1.[address] scan - abdomen: report reviewed and image reviewed CT scan - pelvis: report reviewed and image reviewed Assessment and Plan *Assessment and plan (1) Right upper quadrant pain: Status: Acute Category: Medical Code(s): R10.11 - Right upper quadrant pain (2) Cholelithiasis: Status: Acute Qualifiers: Cholelithiasis location: gallbladder Cholecystitis presence: without cholecystitis Biliary obstruction: without biliary obstruction Qualified Code(s): K80.20 - Calculus of gallbladder without cholecystitis without obstruction Category: Medical Code(s): K80.20 - Calculus of gallbladder without cholecystitis without obstruction (3) Mesenteric adenitis: Status: Acute Category: Medical Code(s): I88.0 - Nonspecific mesenteric lymphadenitis Plan The patient does not have radiographic evidence of acute cholecystitis; however, location of her pain/tenderness is more consistent with biliary disease. Severe biliary colic remains a possibility. Evidence of mesenteric adenitis noted per CT scan could explain acute abdominal pain; however, she does not complain of right lower quadrant/pelvic pain. Therefore, radiographic findings and patient's symptoms are discordant. Follow-up pending formal right upper quadrant ultrasound Continue Toradol Possible cholecystectomy later today or tomorrow
[2025-06-13] MEDS: LACTATED RINGERS 1000ML 1,000 ML 50 ML IV (11:55)
--- NOTE | 2025-06-13 12:22 | EXP.ANES.CKL ---
[facility] Disclaimer: The information contained in this section may have been updated after the patient was seen, as this information can be updated by other users. 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 Abnormal electrocardiogram [ECG] [EKG] Sinus tachycardia Choroid plexus cyst Gastroenteritis Left flank pain Surgical History History of bilateral salpingectomy Family History Other No significant family history Social History Smoking Status: Current every day smoker tobacco type: e-cigarettes alcohol intake: never substance use type: denies use current occupational status: unemployed Travel in the last 8 weeks?: None household members: children housing: apartment caffeine: Yes do you feel safe at home: Yes victim of physical abuse: No victim of emotional abuse: No victim of sexual abuse: No Have you lived/traveled outside [place] in past 30 days?: No Contact w/someone who lives/traveled outside US past 30 days?: No Exposure to someone with infectious disease in past 14 days?: No Do you have a fever (greater than 100.4 F or 38 C)?: No Have you tested positive for COVID-19?: No Exposed to someone with COVID-19 in past 14 days?: No Do you have a sore throat?: No Do you have a cough?: No Do you have any weakness?: No Do you have any diarrhea?: No Are you experiencing any unusual bleeding?: No Do you have any muscle aches/pain?: No Do you have any abdominal pain?: Yes Are you experiencing loss of taste or smell?: No [facility] Anesthesia Checklist Patient Identification Patient Identification: Arm Band and Verbal (Name & ) Structural Data Admitted From: Inpatient Planned Operative Procedure/s: lap jennifer Consent for Planned Operative Procedure(s) Verified: Yes Verified Documents: Surgical Consent and History and Physical NPO Status Verified Time NPO: 00:00 Additional verifications Patient : No Anesthesia Reactions: No Hx Blood Transfusions: No Blood Transfusion Reaction: No Airway Assessment Mallampati Score:: Class II Dentition: Good Dentition Neurological Assessment Level of Consciousness: Awake, Alert and Appropriate Anesthesia Plan Anesthesia Risk discussed: Yes Anesthesia Plan: Verified ASA Class: II Anesthesia Type: General
[2025-06-13] MEDS: CLINDAMYCIN PHOSPHATE/D5W 900 MG/50 ML PIGGYBACK 100 MG IV (12:35)
[2025-06-13] MEDS: LIDOCAINE 1% 20ML MDV 20 ML (12:55)
--- NOTE | 2025-06-13 14:05 | P.OP_ITS ---
Date of procedure: 06/13/25 Pre-op Diagnosis:: Acute calculous cholecystitis Post-op Diagnosis:: Same Procedure performed:: Laparoscopic cholecystectomy Surgeon:: Benjamin Stauffer MD BUSINESS AFFAIRS MANAGER:: Parveen Johnson Anesthesia: GETEliseo Estimated blood loss (mL): 15 Operative findings:: Gallbladder distention Eliud cholecystic fat stranding Serosal weeping Fairly severe infundibular thickening Operative note:: After informed consent was obtained, the patient was taken to the operating room and placed in the supine position. General anesthesia was induced and the abdomen was prepped and draped in a sterile fashion. After infiltration with local anesthetic an infraumbilical incision was made. A Veress needle was placed in position. The abdomen was insufflated. A 5 mm optical trocar was placed in position. Under direct visualization, a 12 mm trocar was placed in the subxiphoid position and 2 additional 5 mm trocars were placed in the right upper quadrant. The gallbladder was elevated up and over the liver margin. The tissue around the cystic duct was carefully dissected. 3 clips were placed proximally and the duct was transected with harmonic reese. Harmonic reese were then utilized to dissect the gallbladder away from the liver margin with careful attention to the control of the cystic artery. The gallbladder was placed in a retrieval bag and removed through the subxiphoid trocar site. The right upper quadrant was thoroughly irrigated. No active bleeding or bile leak was noted. Fascia at the subxiphoid trocar site was reapproximated utilizing the NeoClose device. The remaining trocars were removed. All wounds were irrigated and skin was closed with 4-0 Monocryl in a subcuticular fashion. Steri-Strips were applied. The patient's anesthetic agents were reversed and extubation was completed prior to transfer to recovery in stable condition. Condition: stable Disposition: PACU Specimens:: Gallbladder and contents Complications:: No immediate
--- NOTE | 2025-06-13 14:15 | P.PNANES_ITS ---
[facility] Anesthesia Record Part I Anesthesia Record I Intake, IV Amount: 750 Hydration: Adequate Estimated blood loss (mL): 10 Urine output (mL): 0 Blood Products used (#): none Blood Pressure: 129/77 SaO2: 99 Pulse Rate: 76 Airway Patency: Patent Respiratory Rate: 12 Temperature: 97.3 F Patient is:: Drowsy and Stable Stable to PACU at:: 14:08
[2025-06-13] MEDS: MORPHINE 2MG/ML SYRINGE 2 MG IV (14:35)
--- NOTE | 2025-06-13 14:47 | PC.NURSE ---
left the floor at 12:25 for surgery and returned at 14:46
--- NOTE | 2025-06-13 16:59 | PC.NURSE ---
pt resting supine in bed with family at bedside. pt had lap jennifer this shift. 4 lap sites to abdomen with dressings c/d/i. pt has complained of pain and nausea and was treated per mar with reduction of symptoms. tolerating full liquid diet well. post op vital signs stable. pt educated on the needs to ambulate. pt states she will later . no needs at this time. call light within reach.
[2025-06-13] MEDS: HYDROCODONE/APAP 5/325 MG TABLET 1 TAB PO (19:49)
[2025-06-14] VITALS: BP 110/58; PULSE 61; RESP 14; TEMP 36.9; O2SAT 98
[2025-06-14] MEDS: 0.9 % SODIUM CHLORIDE 1000ML 1,000 ML 100 ML IV (01:54)
[2025-06-14 04:00] VITALS: BP 100/55; PULSE 62; RESP 16; TEMP 36.8; O2SAT 98; BMI 30.3
[2025-06-14 06:22] LABS: Alanine Aminotransferase 51 U/L (12-78); Albumin Level 3.8 g/dl (3.5-5.0); Albumin/Globulin Ratio 1.7 (1.1-1.8); Alkaline Phosphatase 48 U/L (38-126); Anion Gap 9.7 mEq/L (5-15); Aspartate Amino Transferase 51 U/L (14-36); Bilirubin,Total 0.4 mg/dl (0.2-1.3); Blood Urea Nitrogen 8 mg/dl (7-17); Calcium 8.6 mg/dl (8.4-10.2); Carbon Dioxide 29 mmol/L (22.0-30.0); Chloride 106 mmol/L (98-107); Creatinine Clearance Estimated 140 mL/min (50-200); Creatinine,Serum 0.90 mg/dl (0.52-1.04); Estimated Glomerular Filt Rate 76 ml/min (>60); GFR (African American) 92 ML/MIN (>60); Globulin 2.2 g/dL (1.3-3.2); Glucose 107 mg/dl (74-100); Magnesium 2.0 mg/dl (1.6-2.3); Potassium 4.7 mmoL/L (3.5-5.1); Sodium 140 mmol/L (136-145); Total Protein,Serum 6.0 g/dl (6.3-8.2)
[2025-06-14 06:32] LABS: Hematocrit 36.9 % (37.0-47.0); Hemoglobin 11.7 g/dL (12.2-16.2); Immature Granulocytes % 0.2 %; Mean Corpuscular HGB Conc 31.7 g/dL (31.8-35.4); Mean Corpuscular Hemoglobin 28.1 pg (27.0-31.2); Mean Corpuscular Volume 88.5 fl (81-99); Nucleated Red Blood Cells % 0 %; Platelet Count 245 K/mm3 (142-424); Red Blood Count 4.17 M/mm3 (4.20-5.40); Red Cell Distribution Width-SD 38.8 fL; White Blood Count 9.7 K/mm3 (4.8-10.8)
--- NOTE | 2025-06-14 07:14 | P.PN_ITS ---
Subjective Patient reports: no new complaints and feels better Exam Data for Last 24 hours Vital signs and Labs for Last 24 Hours: Temp Pulse Resp BP Pulse Ox O2 Del Method 98.3 F 62 16 100/55 L 98 Room Air 06/14/25 04:00 06/14/25 04:00 06/14/25 04:00 06/14/25 04:00 06/14/25 04:00 06/14/25 04:00 Laboratory Results - last 24 hr 06/14/25 05:46: WBC 9.7, RBC 4.17 L, Hgb 11.7 L, Hct 36.9 L, MCV 88.5, MCH 28.1, MCHC 31.7 L, RDW 12.2, Plt Count 245, MPV 10.3, Neut % (Auto) 62.9, Lymph % (Auto) 29.6, [place] % (Auto) 6.4, Eos % (Auto) 0.4, Baso % (Auto) 0.5, Neut # (Auto) 6.1, Lymph # (Auto) 2.9, [place] # (Auto) 0.6, Eos # (Auto) 0.0, Baso # (Auto) 0.1, Sodium 140, Potassium 4.7 D, Chloride 106, Carbon Dioxide 29, Anion Gap 9.7, BUN 8, Creatinine 0.90, Estimated Creat Clear 140, Estimated GFR 76, Est GFR ( Amer) 92, Glucose 107 H, Calcium 8.6, Magnesium 2.0, Total Bilirubin 0.4, AST 51 H D, ALT 51 D, Alkaline Phosphatase 48, Total Protein 6.0 L, Albumin 3.8, Globulin 2.2, Albumin/Globulin Ratio 1.7 I & O for Last 24 hours: Intake & Output 06/11/25 06/12/25 06/13/25 06/14/25 11:59 11:59 11:59 11:59 Intake Total 613.333 / 039.799 1116 Output Total 400 / 400 0 / 0 Balance 213.333 / 857.589 4755 Weight 200 lb 205 lb Constitutional Constitutional: no acute distress *Routine Respiratory Exam Respiratory: Absent respiratory distress *Routine Cardiovascular Exam Cardiovascular: Absent tachycardia *Routine Abdominal Exam Comments: Dressings in place. No spreading cellulitis. Progress Note: A&P Assessment and plan (1) Acute calculous cholecystitis: Status: Acute Assessment and plan: Overall, doing fairly well status post laparoscopic cholecystectomy. Okay from surgical standpoint for discharge home with close outpatient follow-up
[2025-06-14] MEDS: HYDROCODONE/APAP 5/325 MG TABLET 1 TAB PO (07:59)
[2025-06-14 08:00] VITALS: BP 122/75; PULSE 55; RESP 14; TEMP 36.9; O2SAT 99
[2025-06-14] MEDS: HYDROMORPHONE 2MG/ML SYRINGE 0.5 MG IV (08:27)
--- NOTE | 2025-06-14 10:43 | EXP.ANES.II ---
[facility] Anesthesia Record Part II Anesthesia Record Part II Discharge Time: 14:38 Destination: Medical Surgical Department PACU nurse assessment reviewed?: Yes Patient Condition:: Good Anesthesia Complications:: None Swallowing reflex intact?: Yes Airway Patency: Patent Cyanosis?: No Blood Pressure: 137/68 SaO2: 100 Respiratory Rate: 18 Pulse Rate: 70 Temperature: 98.1 F Mental Status: Alert & Oriented Pain level:: 5 Nausea and/or vomitting:: None Intake, IV Amount: 0 Hydration: Adequate
[2025-06-14 10:44] VITALS: BP 137/68; PULSE 70; RESP 18; TEMP 36.7; O2SAT 100
--- NOTE | 2025-06-14 11:07 | P.DS_ITS ---
General Admission date:: 06/13/25 HPI HPI HPI: Is a 24-year-old female seen in consultation from the primary service for evaluation regarding possible cholecystitis. See HPI forwarded from admission H&P below. CT scan obtained in the emergency department revealed no obvious calcified stones or other biliary abnormality. A cluster of mildly prominent right lower quadrant mesenteric lymph nodes noted there were felt to be consistent with acute mesenteric lymphadenitis. Plan of care ultrasound in the emergency department revealed distended gallbladder with sludge and stones but no Eliud cholecystic fluid. Formal ultrasound pending Forwarded from admission H&P: Ms. Grant is a 24-year-old female who presents for complaint of abdominal pain. Patient denies any past medical history. She reports abdominal pain, nausea, vomiting, diarrhea starting yesterday. She reports vomiting twice and 2 loose stools. She states she did feel lightheaded like she would pass out. She also reports shortness of breath with increased pain. She reports her pain is a 4 out of 10 and describes it as sharp. She states it is constant. States nothing makes it worse but pain medication makes it better. Last time she had anything to eat or drink was 2100 yesterday. Patient denies fever/chills, cough, congestion, runny nose, chest pain, constipation, headache, dizziness, or syncope. Hospital Course Hospital Course Hospital Course: Odell Grant is a 24-year-old female who presented with abdominal pain and was admitted for acute cholecystitis. #Acute cholecystitis ? General Surgery consulted, s/p laparoscopic cholecystectomy on 06/13/2025. Patient tolerated procedure well. ? Tolerating diet without issues. No significant abdominal pain. ? Discharged with [place] 5/325 mg. Will follow-up with general surgery within 1 week. #Obesity ? Complicates all aspects of care. Exam Data for Last 24 hours Vital signs and Labs for Last 24 Hours: Temp Pulse Resp BP Pulse Ox O2 Del Method 98.4 F 55 L 18 122/75 99 Room Air 06/14/25 08:00 06/14/25 08:00 06/14/25 10:44 06/14/25 08:00 06/14/25 08:00 06/14/25 07:00 Laboratory Results - last 24 hr 06/14/25 05:46: WBC 9.7, RBC 4.17 L, Hgb 11.7 L, Hct 36.9 L, MCV 88.5, MCH 28.1, MCHC 31.7 L, RDW 12.2, Plt Count 245, MPV 10.3, Neut % (Auto) 62.9, Lymph % (Auto) 29.6, [place] % (Auto) 6.4, Eos % (Auto) 0.4, Baso % (Auto) 0.5, Neut # (Auto) 6.1, Lymph # (Auto) 2.9, [place] # (Auto) 0.6, Eos # (Auto) 0.0, Baso # (Auto) 0.1, Sodium 140, Potassium 4.7 D, Chloride 106, Carbon Dioxide 29, Anion Gap 9.7, BUN 8, Creatinine 0.90, Estimated Creat Clear 140, Estimated GFR 76, Est GFR ( Amer) 92, Glucose 107 H, Calcium 8.6, Magnesium 2.0, Total Subhash irubin 0.4, AST 51 H D, ALT 51 D, Alkaline Phosphatase 48, Total Protein 6.0 L, Albumin 3.8, Globulin 2.2, Albumin/Globulin Ratio 1.7 I & O for Last 24 hours: Intake & Output 06/11/25 06/12/25 06/13/25 06/14/25 23:59 23:59 23:59 23:59 Intake Total 2400.000 / 2640.000 240 / 240 Output Total 400 / 400 0 / 0 Balance 2000.000 / 2240.000 240 / 240 Weight 90.718 kg 92.986 kg Constitutional Constitutional: no acute distress and obese *Routine HEENT Exam Head: Present normocephalic Eye: Present EOMI and PERRL ENT: Present mucous membranes moist *Routine Neck Exam Neck: Present supple; Absent lymphadenopathy *Routine Respiratory Exam Respiratory: Present CTA bilaterally *Routine Cardiovascular Exam Cardiovascular: Present RRR *Routine Abdominal Exam Abdominal: Present soft and normoactive bowel sounds; Absent tenderness *Routine Extremities Exam Extremities: Absent cyanosis, clubbing or edema *Routine Skin Exam Skin: Present warm; Absent rash *Routine Neurological Exam Neurological: Present alert and oriented X3 Results Data Completed and Pending Labs on day of discharge: Labs from last 24 hours 06/14/25 05:46 WBC 9.7 RBC 4.17 L Hgb 11.7 L Hct 36.9 L MCV 88.5 MCH 28.1 MCHC 31.7 L RDW 12.2 Plt Count 245 MPV 10.3 Neut % (Auto) 62.9 Lymph % (Auto) 29.6 [place] % (Auto) 6.4 Eos % (Auto) 0.4 Baso % (Auto) 0.5 Neut # (Auto) 6.1 Lymph # (Auto) 2.9 [place] # (Auto) 0.6 Eos # (Auto) 0.0 Baso # (Auto) 0.1 Sodium 140 Potassium 4.7 D Chloride 106 Carbon Dioxide 29 Anion Gap 9.7 BUN 8 Creatinine 0.90 Estimated Creat Clear 140 Estimated GFR 76 Est GFR ( Amer) 92 Glucose 107 H Calcium 8.6 Magnesium 2.0 Total Bilirubin 0.4 AST 51 H D ALT 51 D Alkaline Phosphatase 48 Total Protein 6.0 L Albumin 3.8 Globulin 2.2 Albumin/Globulin Ratio 1.7 DS: Diagnosis Discharge Diagnosis (1) Acute calculous cholecystitis: Status: Acute Code(s): K80.00 - Calculus of gallbladder with acute cholecystitis without obstruction Meds Home Medications and Allergies Home Medications ?Medication ?Instructions ?Recorded ?Confirmed ?Type hydrocodone 5 mg-acetaminophen 325 1 tab PO Q6H PRN po st-op pain #17 06/13/25 Rx mg tablet tabs New Prescriptions to Start Prescriptions: hydrocodone-acetaminophen Benjamin Stauffer Allergies Allergy/AdvReac Type Severity Reaction Status Date / Time amoxicillin Allergy Mild Hives Verified 02/28/25 20:37 Penicillins Allergy Mild hives Verified 02/28/25 20:37 Discharge Plan Disposition Patient Disposition: Home, Self-Care Condition: Fair Follow up Plan Follow up with: Benjamin Stauffer MD [Staff Physician, General Surgery] - 06/26/25 2:00 pm Prescriptions/Medication Reconciliation: New hydrocodone-acetaminophen 5-325 mg tablet 1 tab PO Q6H PRN (Reason: post-op pain) Qty: 17 0RF Problem Reconciliation Problems Reviewed?: Yes Patient Discharge Instructions ACTIVITY: Ambulate as tolerated and No heavy lifting DIET: advance to your usual diet Additional Instructions: Remove dressings and shower after 48 hours Leave Steri-Strips intact Stand Alone Forms: [facility] Work Release Patient Instructions: DI for Cholecystitis Print Language: Slovenian Providers Primary Care Provider: Provider,Referral Admit Provider: Parveen Pineda Attending Provider: Parveen Pineda
--- NOTE | 2025-06-18 10:29 | SW/DCPLANNER ---
Phoned patient x2. Left name and a call back number each time. Brianne Norton
--- NOTE | 2025-06-18 13:22 | SW/DCPLANNER ---
spoke with patient on the phone. Patient stated that she is doing good. Patient stated that she is aware of her upcoming appointment. Patient stated that she was able to get her new medicine picked up from clinic pharmacy. Patient stated that she has no concerns or questions at this time. Brianne Norton
== END 2025-06-14 12:38 | disposition home or self-care (01) ==
LOC: ER 03:56 → 2ND 04:10
PROVIDERS: Nurse Practitioner Family; Surgery; Admitting Provider Internal Medicine Adolescent Medicine; Emergency Provider Emergency Medicine; Visit Provider Internal Medicine Adolescent Medicine
PROC: 0FT44ZZ Resection of Gallbladder, Percutaneous Endoscopic Approach (ICD-10-PCS; CPT 47562; principal; 2025-06-13 11:45)
DX: K80.10 Calculus of gallbladder with chronic cholecystitis without obstruction (principal); I88.0 Nonspecific mesenteric lymphadenitis; E66.9 Obesity, unspecified; R00.1 Bradycardia, unspecified; Z88.0 Allergy status to penicillin; Z68.30 Body mass index [BMI] 30.0-30.9, adult
CPT/HCPCS: 47562; 36415; 74177; 76705; 80053; 81001; 83605; 83690; 83735; 84484; 84703; 85025; 85610; 93005; 96361; 96374; 96375; 96376; 99284; G0378; J0736; J1100; J1171; J1885; J2003; J2250; J2270; J2405; J2704; J3010; J7030; J7120; Q9967

== ENCOUNTER 2025-08-21 18:00 | Outpatient (CLI) | payer OTHER, SELFPAY ==
[2025-08-21 21:25] LABS: Coronavirus 19, PCR Not Detected (NotDetected); Influenza A, PCR Not Detected (NotDetected); Influenza B, PCR Not Detected (NotDetected)
--- OUTSIDE RECORDS SUMMARY | 2025-08-23 08:44 | XMS_ITS | Clinical Summary ---
Author Organization [facility] Address [address] [place] [address] Care Team Providers Care Journeyman Glazier Name Role Phone Unavailable Primary Care Provider [...] 19+ 3-dose series) 12/16/2018 [facility]-Pap Smear 12/16/2020 [id number] Vaccine (1 - 20 24-25 season) 2025 [facility]-Influenza Vaccine (#1) 2025 [facility]-Zoster Vaccines (1 [...]
--- OUTSIDE RECORDS SUMMARY | 2025-08-23 08:44 | XMS_ITS | Clinical Summary ---
Author Organization [facility] Address [address] [place] [address] Care Team Providers Care Security Installer Name Role Phone Provider, No Known Primary [...] ANNUAL PHYSICAL 12/14/2022 HEPATITIS C SCREENING 12/14/2022 INFLUENZA VACCINE 05/10/2025 Pneumococcal Vaccine 0-49 Aged Out No longer eligible based on patient's age to complete this topic Insurance [employer] [facility] Care Teams Security Installer Relationship Specialty Start Date End Date Provider, [place] [address] PCP - General 12/14/22
== END 2025-08-21 23:59 ==
LOC: LAB.DROPOF 08-23 08:42
PROVIDERS: Visit Provider Nurse Practitioner
DX: J06.9 Acute upper respiratory infection, unspecified (principal)
CPT/HCPCS: 87631